=== PATIENT | female | born 1970 | race Hispanic/Latino ===

== ENCOUNTER 2019-02-24 16:37 | Emergency (ER) | payer OTHER, MEDICAID, SELFPAY ==
--- NOTE | 2019-02-24 16:45 | DI.RAD.S_ITS ---
PROCEDURE: XR THORACIC SPINE 2V INDICATIONS: pain x weeks TECHNIQUE: 2 views of the thoracic spine were acquired. COMPARISON: [facility], CR, XR CHEST 2 VIEWS, 06/12/2018, 13:02. FINDINGS: Bones: No fractures or dislocations. No suspicious bony lesions. Visualized ribs are intact. Multilevel endplate osteophytes are present. Soft tissues: No paravertebral stripe thickening. IMPRESSION: Multilevel degenerative disc disease. No acute fracture. No osseous lesion. If clinical suspicion and/or symptoms persist, further assessment with repeat plainfilms, or advanced imaging (e.g., CT, MRI, or bone scan) may be helpful for further assessment. Dictated by: Selena De Jesus M.D. on 02/24/2019 at 16:58 Approved by: Selena De Jesus M.D. on 02/24/2019 at 16:59
[2019-02-24 16:48] VITALS: BP 123/61; PULSE 122; RESP 16; TEMP 36.9; O2SAT 100; BMI 32.9
[2019-02-24] MEDS: KETOROLAC 60 MG/2 ML VIAL IM (16:53)
[2019-02-24] MEDS: CYCLOBENZAPRINE 10 MG TABLET PO (16:53)
[2019-02-24 17:08] LABS: RBC Urine None Seen (0-5/HPF)
[2019-02-24 17:30] LABS: Bacteria Urine Moderate (10-30); Culture Indicated Urine Cult Not Indicated; Squamous Epithelial Cell Urine 5-10 /HPF (0-5/HPF); WBC Urine 5-10/HPF (0-5/HPF)
[2019-02-24] MEDS: CODEINE/ACETAMINOPHEN 30/300 TABLET 1 TAB PO (18:14)
[2019-02-24] MEDS: LIDOCAINE PATCH 1 EACH ADH..PATCH TOP (18:14)
[2019-02-24 18:22] VITALS: BP 123/65; PULSE 109; O2SAT 100
[2019-02-24] MEDS: KETOROLAC 10MG PREPACK 1 BOTTLE MISC (18:46)
[2019-02-24] MEDS: CYCLOBENZAPRINE 10 MG PREPACK 1 BOTTLE MISC (18:47)
[2019-02-24] MEDS: CODEINE/APAP 30/300 PREPACK 1 BOTTLE MISC (18:47)
--- NOTE | 2019-02-24 19:43 | ED_ITS ---
HPI - Back Pain/Injury <MAURI Sanchez- - Last Filed: 02/24/19 19:49> General Chief Complaint: Back Pain/Injury Stated Complaint: back pain for couple of weeks Time Seen by Provider: 02/24/19 16:40 Source: patient Mode of arrival: Ambulatory Limitations: no limitations History of Present Illness HPI Narrative: The patient is a 48-year-old female nonsmoker with history of UTI who presents with a chief complaint of 1 month thoracic back pain. She states it started with no impetus, and it's gotten worse. She has not taken any Tylenol or Motrin because she has not had any. She denies any incontinence of bowel, incontinence of bladder saddle anesthesia. She denies any falls or trauma. She states that it's on both her worse with pressure and movement. Related Data Previous Rx's Medication Instructions Recorded ondansetron [Zofran ODT] 4 mg SUBLINGUAL Q4HP PRN #15 odt 11/01/16 sulfamethoxazole-trimethoprim 1 tab PO BID #14 tab 11/01/16 acetaminophen-codeine 1 tab PO Q4-6H PRN #7 tab 02/24/19 [Tylenol-Codeine #3] cyclobenzaprine 10 mg PO TID PRN #14 tab 02/24/19 ketorolac 10 mg PO TID PRN #15 tab 02/24/19 Allergies Allergy/AdvReac Type Severity Reaction Status Date / Time No Known Drug Allergies Allergy Verified 02/24/19 16:48 Review of Systems <NALINI Sanchez - Last Filed: 02/24/19 19:49> Review of Systems Narrative: GENERAL: Denies chills, fatigue, malaise, fever, sweats. HEENT: Denies sinus pain, ear pain, sore throat, difficulty swallowing, dizziness. RESPIRATORY: Denies dyspnea, cough, wheezing, hemoptysis, sputum. CARDIOVASCULAR: Denies chest pain, palpitations, orthopnea, edema, GASTROINTESTINAL: Denies nausea, vomiting, abdominal pain, diarrhea, constipation, melena. : Denies dysuria, frequency, incontinence, hematuria, urinary retention. MUSCULOSKELETAL: See HPI SKIN: Denies rash, skin lesions, or other NEUROLOGIC: Denies weakness, headache, numbness, change in speech, confusion, seizures, incoordination. PSYCHIATRIC: No concerning psychosocial issues. 12 point review of systems is negative except for those stated above Patient History <JAYESH Sanchez - Last Filed: 02/24/19 19:49> Social History Smoking Status: Unknown if ever smoked Smoking Status: Unknown if ever smoked alcohol intake frequency: holidays/special occasions only Substance Use Type: does not use Exam <JAYESH Sanchez - Last Filed: 02/24/19 19:49> Narrative Exam Narrative: GENERAL: Obese female in no acute distress walking in with purse in no acute distress HEAD: Atraumatic. Normocephalic. No temporal or scalp tenderness. EYES: Pupils equal round and reactive. Extraocular motions intact. No scleral icterus. No injection or drainage. ENT: Nose without bleeding, purulent drainage or septal hematoma. Throat without erythema, tonsillar hypertrophy or exudate. Uvula midline. Airway patent. NECK: Trachea midline. No JVD or lymphadenopathy. Supple, nontender, no meningeal signs. CARDIOVASCULAR: Regular rate and rhythm RESPIRATORY: Clear to auscultation. Breath sounds equal bilaterally. No wheezes, rales, or rhonchi. No cough. No increased respiratory effort. No accessory muscle use. GASTROINTESTINAL: Abdomen soft, non-tender, nondistended. No hepato- splenomegaly, or palpable masses. No guarding. EXTREMITIES: No clubbing, cyanosis, or edema. No joint tenderness, effusion, or edema noted. BACK: No palpable deformity or crepitance. No flank tenderness. No pain to CT or L-spine palpation. Pain to thoracic spine palpation that is diffuse and bilateral paraspinal muscle palpation. NEURO: AOx3. Steady gait. Using all extremities equally. SKIN: No rash or erythema. Initial Vital Signs Initial Vital Signs: Vital Signs Temperature 98.4 F 02/24/19 16:48 Pulse Rate 122 H 02/24/19 16:48 Respiratory Rate 16 02/24/19 16:48 Blood Pressure 123/61 02/24/19 16:48 Pulse Oximetry 100 02/24/19 16:48 <Harish Egan DO - Last Filed: 02/28/19 18:25> Initial Vital Signs Initial Vital Signs: Vital Signs Temperature 98.4 F 02/24/19 16:48 Pulse Rate 122 H 02/24/19 16:48 Respiratory Rate 16 02/24/19 16:48 Blood Pressure 123/61 02/24/19 16:48 Pulse Oximetry 100 02/24/19 16:48 Course <MAURI Sanchez-BC - Last Filed: 02/24/19 19:49> Orders Ordered: Discontinued Medications Acetaminophen/Codeine Phosphate (Tylenol #3) 1 tab PO NOW ONE Stop: 02/24/19 18:02 Last Admin: 02/24/19 18:14 Dose: 1 tab Documented by: JAMAR Acetaminophen/Codeine Phosphate (Tylenol #3 Prepack) 1 bottle MISC SEEINSTR ONE Stop: 02/24/19 18:39 Last Admin: 02/24/19 18:47 Dose: 1 bottle Documented by: NARA Cyclobenzaprine HCl (Flexeril) 10 mg PO NOW ONE Stop: 02/24/19 16:46 Last Admin: 02/24/19 16:53 Dose: 10 mg Documented by: JAMAR Cyclobenzaprine HCl (Flexeril 10 Mg Prepack) 1 bottle MISC SEEINSTR ONE Stop: 02/24/19 18:39 Last Admin: 02/24/19 18:47 Dose: 1 bottle Documented by: NARA Ketorolac Tromethamine (Toradol) 60 mg IM NOW ONE Stop: 02/24/19 16:46 Last Admin: 02/24/19 16:53 Dose: 60 mg Documented by: JAMAR Ketorolac Tromethamine (Toradol 10mg Prepack) 1 bottle MISC SEEINSTR ONE Stop: 02/24/19 18:39 Last Admin: 02/24/19 18:46 Dose: 1 bottle Documented by: NARA Lidocaine (Lidoderm) 1 each TOP NOW ONE Stop: 02/24/19 18:02 Last Admin: 02/24/19 18:14 Dose: 1 each Documented by: JAMAR Vital Signs Vital signs: Vital Signs - 8 hr 02/24/19 16:48 02/24/19 18:22 Temperature 98.4 F Pulse Rate 122 H 109 H Respiratory Rate 16 Blood Pressure 123/61 Blood Pressure [Left Arm] 123/65 Pulse Oximetry 100 100 <Harish Egan DO - Last Filed: 02/28/19 18:25> Orders Ordered: Discontinued Medications Acetaminophen/Codeine Phosphate (Tylenol #3) 1 tab PO NOW ONE Stop: 02/24/19 18:02 Last Admin: 02/24/19 18:14 Dose: 1 tab Documented by: JAMAR Acetaminophen/Codeine Phosphate (Tylenol #3 Prepack) 1 bottle MISC SEEINSTR ONE Stop: 02/24/19 18:39 Last Admin: 02/24/19 18:47 Dose: 1 bottle Documented by: NARA Cyclobenzaprine HCl (Flexeril) 10 mg PO NOW ONE Stop: 02/24/19 16:46 Last Admin: 02/24/19 16:53 Dose: 10 mg Documented by: JAMAR Cyclobenzaprine HCl (Flexeril 10 Mg Prepack) 1 bottle MISC SEEINSTR ONE Stop: 02/24/19 18:39 Last Admin: 02/24/19 18:47 Dose: 1 bottle Documented by: NARA Ketorolac Tromethamine (Toradol) 60 mg IM NOW ONE Stop: 02/24/19 16:46 Last Admin: 02/24/19 16:53 Dose: 60 mg Documented by: JAMAR Ketorolac Tromethamine (Toradol 10mg Prepack) 1 bottle MISC SEEINSTR ONE Stop: 02/24/19 18:39 Last Admin: 02/24/19 18:46 Dose: 1 bottle Documented by: NARA Lidocaine (Lidoderm) 1 each TOP NOW ONE Stop: 02/24/19 18:02 Last Admin: 02/24/19 18:14 Dose: 1 each Documented by: JAMAR Vital Signs Vital signs: Vital Signs - 8 hr 02/24/19 16:48 02/24/19 18:22 Temperature 98.4 F Pulse Rate 122 H 109 H Respiratory Rate 16 Blood Pressure 123/61 Blood Pressure [Left Arm] 123/65 Pulse Oximetry 100 100 MDM - Back Pain/Injury <JAYESH Sanchez - Last Filed: 02/24/19 19:49> Lab Data Labs: Lab Results 02/24/19 Range/Units 16:50 Urine RBC None seen (0-5/HPF) Urine WBC 5-10/hpf H (0-5/HPF) Ur Squamous Epith Cells 5-10 /hpf H (0-5/HPF) Urine Bacteria Moderate (10-30) H (None) Ur Culture Indicated? Cult not indicated Point of Care Testing Test Results Negative Urine Dip Bedside Urine Glucose Negative Bedside Urine Bilirubin + 1 Bedside Urine Ketone +/- 5 Urine Specific [place] 1.025 Bedside Urine Occult Blood - Negative Bedside Urine pH 6.0 Bedside Urine Protein + 30 Bedside Urine Urobilinogen +/- 1mg Bedside Urine Nitrite - Negative Bedside Urine Leukocytes + 70 Esterase Imaging Data Thoracic spine x-ray: Radiologist's Impression: [address] [address] XRay Report Signed Patient: Hellen CasillassMR#: [id number] : 1970Acct:[id number] Age/Sex: 48 / FDate of Service: 02/24/19 Loc: ED Accession Number: [id number] Procedure: XR thoracic spine 2V Ordering Provider: Estelle Wong PROCEDURE: XR THORACIC SPINE 2V INDICATIONS: pain x weeks TECHNIQUE: 2 views of the thoracic spine were acquired. COMPARISON: [facility], , XR CHEST 2 VIEWS, 06/12/2018, 13:02. FINDINGS: Bones: No fractures or dislocations. No suspicious bony lesions. Visualized ribs are intact. Multilevel endplate osteophytes are present. Soft tissues: No paravertebral stripe thickening. IMPRESSION: Multilevel degenerative disc disease. No acute fracture. No osseous lesion. If clinical suspicion and/or symptoms persist, further assessment with repeat plainfilms, or advanced imaging (e.g., CT, MRI, or bone scan) may be helpful for further assessment. Dictated by: Selena De Jesus M.D. on 02/24/2019 at 16:58 Approved by: Selena De Jesus M.D. on 02/24/2019 at 16:59 [facility] Narrative Medical decision making narrative: The patient is a 48-year-old female who presents with a chief complaint of back pain ongoing for the past month. She has no red flag symptoms of incontinence bowel, incontinence of bladder saddle anesthesia. I discussed at length that she needs to follow up with these occur. She was given Toradol, Flexeril and Tylenol 3 the emergency department. I discussed at length that she is to follow up with primary care provider, come back for any acute concerns. She felt improvement with these medications in the ER. I discussed that Tylenol 3 can be constipating and sedating, Flexeril can be sedating, Toradol cannot be combined with any other NSAIDs. Patient has no questions or concerns upon discharge and states understanding of return precautions as well as follow-up care. <Harish Egan DO - Last Filed: 02/28/19 18:25> Lab Data Labs: Lab Results 02/24/19 Range/Units 16:50 Urine RBC None seen (0-5/HPF) Urine WBC 5-10/hpf H (0-5/HPF) Ur Squamous Epith Cells 5-10 /hpf H (0-5/HPF) Urine Bacteria Moderate (10-30) H (None) Ur Culture Indicated? Cult not indicated Point of Care Testing Test Results Negative Urine Dip Bedside Urine Glucose Negative Bedside Urine Bilirubin + 1 Bedside Urine Ketone +/- 5 Urine Specific [place] 1.025 Bedside Urine Occult Blood - Negative Bedside Urine pH 6.0 Bedside Urine Protein + 30 Bedside Urine Urobilinogen +/- 1mg Bedside Urine Nitrite - Negative Bedside Urine Leukocytes + 70 Esterase Discharge Plan Departure Patient Disposition: Home Clinical Impression: Thoracic back pain Qualifiers: Chronicity: acute Back pain laterality: bilateral Qualified Code(s): M54.6 - Pain in thoracic spine Discharge Date/Time: 02/24/19 18:49 Instructions: DI for Back Spasm, DI for Back Strain or Sprain, DI for Thoracic Back Pain Activity Restrictions/Additional Instructions: As I discussed, your x-ray shows no acute fracture. This does not rule out a soft tissue injury. Please follow-up with primary care provider in the next few days. He may need further imaging and or physical therapy etcetera Please come back to the emergency department for any acute concerns such as incontinence of bowel, incontinence of bladder numbness in her groin I sent 3 prescriptions to [facility] in [place] Please be aware that Flexeril can be sedating. Do not combine it with any sedating agents. I have given you a prescription of Toradol. This is an NSAID. Do not combine it with other NSAIDs such as Aleve or ibuprofen. I suggest taking it with some food, as it can irritate your stomach. I have given you a prescription of a narcotic for pain. Be aware that this can be constipating and sedating. I encouraged taking with a stool softener, pushing fluids and fiber. Do not take and drive, operate heavy machinery, etc. Do not combine it with any other sedating substances such as alcohol. The combination of narcotics and alcohol and/or other sedatives can be lethal. Please be aware that we do not provide refills of controlled substances in the emergency department. Please follow up with her primary care provider. Prescriptions: New cyclobenzaprine 10 mg tablet 10 mg PO TID PRN (Reason: muscle spasm) Qty: 14 RF: 0 acetaminophen-codeine [Tylenol-Codeine #3] 300-30 mg tablet 1 tab PO Q4-6H PRN (Reason: pain) Qty: 7 RF: 0 ketorolac 10 mg tablet 10 mg PO TID PRN (Reason: pain) Qty: 15 RF: 0 No Action sulfamethoxazole-trimethoprim 800 MG/160 MG tablet 1 tab PO BID Qty: 14 RF: 0 ondansetron [Zofran ODT] 4 MG tablet,disintegrating 4 mg Sublingual Q4HP PRNQty: 15 RF: 0 <Harish Egan, DO - Last Filed: 02/28/19 18:25> Sign Out Provider Sign Out Attestation: Dr Egan Co-Sign Statement: I was available for consultation during this patient's emergency department visit. This chart is si gned by myself for administrative purposes only. I did not have direct contact with this patient during this visit. They were seen independently by the APC.
== END 2019-02-24 18:49 | disposition home or self-care (01) ==
PROVIDERS: Emergency Provider Nurse Practitioner Family
DX: M54.6 Pain in thoracic spine (principal)
CPT/HCPCS: 72070; 81003; 81015; 81025; 96372; 99282; 99283; J1885

== ENCOUNTER 2019-11-20 16:58 | Inpatient (IN) | payer OTHER, MEDICAID, SELFPAY ==
[2019-11-20] VITALS (9 sets, daily range): BP systolic 103–147; BP diastolic 55–73; PULSE 103–120; RESP 16–31; TEMP 36.2–36.9; O2SAT 96–99; BMI 32.9; BMI 43.9
--- NOTE | 2019-11-20 18:15 | ED_ITS ---
HPI - Abdominal Pain General Chief Complaint: Abdominal Pain Stated Complaint: hernia pain Time Seen by Provider: 11/20/19 18:05 Source: patient Mode of arrival: Ambulatory Limitations: no limitations History of Present Illness HPI narrative: 48-year-old female nonsmoker with a history of bradycardia requiring a pacemaker 3 years ago presents with about 2 weeks of gradually worsening abdominal pain. It started around her belly button where she thinks she has a known umbilical hernia and has worsened to be much of her abdomen now. She has been nauseated but not vomiting and last oral intake was about breakfas t this morning. She denies any fever chills. Her pain is significantly worse with any motion and improves with rest. She has been constipated and reports decreased bowel movements over the past few days as well. She denies any exposure to persons known to have coronavirus MD complaint: abdominal pain Onset (ago): week(s) Pain Consistency: constant Location: periumbilical Severity: severe Quality: cramping and aching Relieving factors: rest Exacerbating factors: movement Related Data Home Medications Medication Instructions Recorded Confirmed gabapentin 300 mg PO DAILY 11/20/19 11/20/19 lisinopril PO DAILY 11/20/19 metoprolol tartrate TID 11/20/19 Previous Rx's Medication Instructions Recorded ondansetron [Zofran ODT] 4 mg SUBLINGUAL Q4HP PRN #15 odt 11/01/16 acetaminophen-codeine 1 tab PO Q4-6H PRN #7 tab 02/24/19 [Tylenol-Codeine #3] cyclobenzaprine 10 mg PO TID PRN #14 tab 02/24/19 ketorolac 10 mg PO TID PRN #15 tab 02/24/19 Allergies Allergy/AdvReac Type Severity Reaction Status Date / Time No Known Drug Allergies Allergy Verified 11/20/19 21:04 Review of Systems Constitutional Constitutional: Denies chills, Denies fatigue, Denies fever(s), Denies frequent falls, Denies lethargy and Denies weakness Eyes Eyes: Denies change in vision, Denies eye discharge, Denies irritation and Denies loss of vision ENT Ears, Nose, Mouth, and Throat: Denies change in voice, Denies dizziness, Denies neck pain, Denies sore throat and Denies throat swelling Cardiovascular Cardiovascular: Denies chest pain, Denies irregular heart rhythm, Denies lightheadedness, Denies palpitations, Denies dyspnea, Denies dyspnea on exertion and Denies orthopnea Respiratory Respiratory: Denies cough, Denies dyspnea, Denies dyspnea on exertion and Denies wheezing Gastrointestinal Gastrointestinal: Reports abdominal pain, Reports change in bowel habits, Denies diarrhea, Reports nausea and Denies vomiting Musculoskeletal Musculoskeletal: Denies neck pain and Denies numbness Integumentary/Breasts Skin/Breast: Denies pruritus, Denies erythema, Denies rash and Denies wounds Neurologic Neurologic: Denies behavioral changes, Denies confusion, Denies dizziness, Denies frequent falls, Denies loss of vision, Denies numbness and Denies weakness Psychiatric Psychiatric: Denies anxiety, Denies behavioral changes, Denies confusion, Denies depression, Denies homicidal ideation and Denies suicidal ideation Endocrine Endocrine: Denies fatigue, Denies flushing and Denies palpitations Hematologic/Lymphatic Hematologic/Lymphatic: Denies easy bruising Allergic/Immunologic Allergic/Immunologic: Denies urticaria, Denies throat swelling and Denies wheezing Patient History Medical History Hypertension (Acute) Seasonal allergies (Acute) Surgical History History of laparoscopic cholecystectomy (Acute) Social History household members: significant other and children Smoking Status: Never smoker alcohol intake: former Smoking Status: Never smoker alcohol intake frequency: holidays/special occasions only Substance Use Type: does not use Exam Narrative Exam Narrative: GENERAL: [48] year old patient appears stated age. Obese, obviously uncomfortable HEAD: Atraumatic. Normocephalic. EYES: Pupils equal round and reactive. Extraocular motions intact. No scleral icterus. No injection or drainage. ENT: Nose without bleeding, purulent drainage. Throat without erythema, tonsillar hypertrophy or exudate. Airway patent. NECK: Trachea midline. Non tender CARDIOVASCULAR: Regular rate and rhythm without murmurs, gallops, or rubs. RESPIRATORY: Clear to auscultation. Breath sounds equal bilaterally. No wheezes, rales, or rhonchi. GASTROINTESTINAL: Abdomen soft, very tender umbilical hernia, unable to reduce. Decreased bowel sounds. No erythema EXTREMITIES: No edema or joint tenderness. BACK: Nontender without deformity or crepitance. No flank tenderness. NEURO: AOx3. SKIN: No rash or erythema of visible areas Initial Vital Signs Initial Vital Signs: Vital Signs Temperature 97.2 F L 11/20/19 17:19 Pulse Rate 120 H 11/20/19 17:19 Respiratory Rate 22 11/20/19 17:19 Blood Pressure 147/68 H 11/20/19 17:19 Pulse Oximetry 99 11/20/19 17:19 Course Orders Ordered: ED Orders 11/20/19 18:32 EKG-12 Lead Stat 11/20/19 18:46 CT abdomen pelvis w con Stat 11/20/19 18:47 Complete Blood Count AUTO DIFF Stat Comprehensive Metabolic Panel Stat Lipase Stat 11/20/19 20:21 COVID19 -ED/INPAT/OR/L&D Stat Fentanyl (Sublimaze) 0 mcg IV Q5M PRN PRN Reason: Pain, Moderate (4-6) Hydromorphone HCl (Dilaudid) 0 mg IV Q5M PRN PRN Reason: Pain, Severe (7-10) Sodium Chloride (Normal Saline 0.9%) 1,000 mls @ 150 mls/hr IV CONT TOMMIE Lactated Ringer's (Lactated Ringers) 1,000 mls @ 42 mls/hr IV NOW ONE Stop: 11/21/19 21:02 Last Admin: 11/20/19 21:05 Dose: 42 mls/hr Documented by: SELINA Lactated Ringer's (Lactated Ringers) 1,000 mls @ 42 mls/hr IV CONT TOMMIE Ondansetron HCl (Zofran) 4 mg IV NOW PRN PRN Reason: Nausea And Vomiting Oxycodone/Acetaminophen (Percocet 5/325) 1 tab PO PACUNOW PRN PRN Reason: Mild or Moderate Pain Discontinued Medications Hydromorphone HCl (Dilaudid) 0.5 mg IV NOW ONE Stop: 11/20/19 18:46 Last Admin: 11/20/19 19:13 Dose: 0.5 mg Documented by: JOHNATHANOTEM Sodium Chloride (Normal Saline 0.9%) 1,000 mls @ 1,000 mls/hr IV BOLUS ONE Stop: 11/20/19 19:36 Last Infusion: 11/20/19 20:43 Dose: 0 mls/hr Documented by: Admin: 11/20/19 19:12 Dose: 1,000 mls/hr Documented by: JAMAR Piperacillin/Tazobactam/Dextrose (Zosyn) 3.375 gm in 50 mls @ 100 mls/hr IV INTRA-OP ONE Stop: 11/20/19 20:57 Last Infusion: 11/20/19 21:38 Dose: 0 mls/hr Documented by: Admin: 11/20/19 21:28 Dose: 100 mls/hr Documented by: SHELLIE Ondansetron HCl (Zofran) 4 mg IV NOW ONE Stop: 11/20/19 18:46 Last Admin: 11/20/19 19:13 Dose: 4 mg Documented by: JAMAR Consultations Consultation #1: general surgery contacted after initial exam. Will plan to take to OR pending CT Vital Signs Vital signs: Vital Signs - 8 hr 11/20/19 17:19 11/20/19 17:43 11/20/19 17:44 Temperature 97.2 F L Pulse Rate 120 H 114 H Respiratory Rate 22 Blood Pressure 147/68 H 142/58 H Pulse Oximetry 99 97 98 11/20/19 18:00 11/20/19 18:30 11/20/19 19:00 Temperature Pulse Rate 108 H 110 H 109 H Respiratory Rate 21 Blood Pressure 121/64 103/67 Pulse Oximetry 98 98 97 11/20/19 19:30 11/20/19 20:00 Temperature Pulse Rate 104 H 105 H Respiratory Rate 31 H 23 Blood Pressure 109/73 Pulse Oximetry 96 96 MDM - Abdominal Pain Lab Data Result diagrams: 11/20/19 18:47 11/20/19 18:47 Labs: Lab Results 11/20/19 11/20/19 11/20/19 Range/Units 18:47 18:47 20:21 WBC 7.2 (4.5-11.0) X10^3/uL RBC 4.34 (4.0-5.2) X10^6/uL Hgb 12.2 (12.0-16.0) g/dL Hct 36.5 (36-46) % MCV 84.1 (80-100) fL MCH 28.1 (26-34) PG MCHC 33.4 (30-36) % RDW 14.4 (11.6-14.8) % Plt Count 271 (150-400) X10^3/uL Neut % (Auto) 60.6 (50-75) % Lymph % (Auto) 29.1 (25-40) % [place] % (Auto) 6.8 (3-14) % Eos % (Auto) 2.8 (2-4) % Baso % (Auto) 0.7 (0-2) % Neut # (Auto) 4400 (0981-3677) /uL Lymph # (Auto) 2100 (4898-5628) /uL [place] # (Auto) 500 (0-900) /uL Eos # (Auto) 200 (0-450) /uL Baso # (Auto) 0 (0-100) /uL Sodium 136 L (137-145) mmol/L Potassium 4.3 (3.4-5.1) mmol/L Chloride 102 (98-107) mmol/L Carbon Dioxide 28 (22-32) mmol/L BUN 22 H (7-17) mg/dL Creatinine 0.60 (0.52-1.04) mg/dL Estimated GFR > 60.0 (>60) mL/min BUN/Creatinine Ratio 36.7 H (6-22) Glucose 112 H (70-100) mg/dL Calcium 9.1 (8.4-10.2) mg/dL Total Bilirubin 0.3 (0.2-1.3) mg/dL AST 33 (14-36) IU/L ALT 19 (<35) IU/L Alkaline Phosphatase 113 (38-126) U/L Total Protein 7.2 (6.3-8.2) g/dL Albumin 3.8 (3.5-5.0) g/dL Globulin 3.4 (1.7-4.1) g/dL Albumin/Globulin Ratio 1.1 (1.0-2.8) Lipase 35 (23-300) U/L COVID-19 PCR Negative (Negative) Discharge Plan Departure Patient Disposition: Admitted as Observation Clinical Impression: Incarcerated umbilical hernia Discharge Date/Time: 11/20/19 20:48 Referrals: Geetha Martinez MD [Primary Care Provider] - Admit Date/Time: 11/20/19 20:21 Admit Provider: Tereso Moore
--- NOTE | 2019-11-20 18:46 | DI.CT.S_ITS ---
PROCEDURE: CT ABDOMEN PELVIS W CON INDICATIONS: severe abdominal pain, umbilical hernia, nausea, no appetiti TECHNIQUE: After the administration of intravenous contrast, 5 mm thick sections acquired from the diaphragm to the symphysis. 5 mm coronal and sagittal reformats were acquired. For radiation dose reduction, the following was used: automated exposure control, adjustment of mA and/or kV according to patient size. COMPARISON: [facility], CT, CT ABDOMEN PELVIS WITH CONTRAST, 08/19/2017, 20:57. FINDINGS: Image quality: Excellent. ABDOMEN: Lung bases: Lung bases are clear. Heart size is normal. Cardiac pacer leads noted. Solid organs: Liver is normal in size and enhancement. Gallbladder is surgically absent. Biliary system is non dilated. Pancreas enhances normally. Spleen is normal in size and enhancement. No adrenal nodules. Kidneys demonstrate normal size and enhancement, without hydronephrosis. Peritoneum and bowel: Small bowel demonstrate normal wall thickness and caliber. Scattered colonic diverticuli without evidence of diverticulosis. No free fluid or air. Appendix is normal. Nodes and vessels: No retroperitoneal or mesenteric adenopathy by size criteria. Aorta and inferior vena cava are normal in size. Miscellaneous: Large periumbilical ventral midline hernia is noted which contains loop of transverse colon. Mild inflammatory changes are noted adjacent to the herniated loop of transverse colon and there is focal, mild wall thickening at the point of herniation concerning for early bowel strangulation. Colon is mildly distended with large amount of stool proximal to the herniated loop of transverse colon and is mostly decompressed distal to the herniated loop of transverse colon concerning for at low-grade versus early obstruction. PELVIS: Genitourinary: Bladder wall thickness is normal. Miscellaneous: No inguinal hernias or adenopathy. Bones: No suspicious bony lesions. No vertebral body compression fractures. Spine degenerative disc disease and facet arthropathy. IMPRESSION: 1. Large periumbilical hernia which contains a loop of transverse colon. There are mild inflammatory changes and focal mild circumferential wall thickening involving the herniated loop of transverse colon concerning for early strangulation/ischemia. Colon proximal to the herniated loop of transverse colon is distended with large amount of stool with colon distal to the herniated transverse colon predominantly decompressed suspicious for early or low-grade colonic obstruction. 2. Colonic diverticulosis without evidence of diverticulitis. Findings discussed with on November 20, 2019 at 8:33 p.m. Dictated by: Clau Driscoll MD, PhD on 11/20/2019 at 20:25 Approved by: Clau Driscoll MD, PhD on 11/20/2019 at 20:33
[2019-11-20 19:02] LABS: Add Manual Diff / Slide Review NO; Basophils Absolute Auto 0 /uL (0-100); Basophils Percent Auto 0.7 % (0-2); Eosinophils Absolute Auto 200 /uL (0-450); Eosinophils Percent Auto 2.8 % (2-4); Hematocrit 36.5 % (36-46); Hemoglobin 12.2 g/dL (12.0-16.0); Lymphocytes Absolute Auto 2100 /uL (1100-4500); Lymphocytes Percent Auto 29.1 % (25-40); Mean Corpuscular HGB Conc 33.4 % (30-36); Mean Corpuscular Hemoglobin 28.1 PG (26-34); Mean Corpuscular Volume 84.1 fL (80-100); Monocytes Absolute Auto 500 /uL (0-900); Monocytes Percent Auto 6.8 % (3-14); Neutrophils Absolute Auto 4400 /uL (1500-7000); Neutrophils Percent Auto 60.6 % (50-75); Platelet Count 271 X10^3/uL (150-400); Red Blood Cell Count 4.34 X10^6/uL (4.0-5.2); Red Cell Distribution Width 14.4 % (11.6-14.8); White Blood Cell Count 7.2 X10^3/uL (4.5-11.0)
[2019-11-20] MEDS: SODIUM CHLORIDE 0.9% 1,000 ML 1000 ML IV (19:12)
[2019-11-20 19:13] LABS: Alanine Aminotransferase 19 IU/L (<35); Albumin 3.8 g/dL (3.5-5.0); Albumin Globulin Ratio 1.1 (1.0-2.8); Alkaline Phosphatase 113 U/L (38-126); Aspartate Aminotransferase 33 IU/L (14-36); BUN Creatinine Ratio 36.7 (6-22); Bilirubin Total 0.3 mg/dL (0.2-1.3); Blood Urea Nitrogen 22 mg/dL (7-17); Calcium 9.1 mg/dL (8.4-10.2); Carbon Dioxide 28 mmol/L (22-32); Chloride 102 mmol/L (98-107); Estimated Glomerular Filt Rate > 60.0 mL/min (>60); Globulin 3.4 g/dL (1.7-4.1); Glucose 112 mg/dL (70-100); HEMOLYSIS 40 (0-50); Lipase 35 U/L (23-300); Potassium 4.3 mmol/L (3.4-5.1); Sodium 136 mmol/L (137-145); Total Protein 7.2 g/dL (6.3-8.2)
[2019-11-20] MEDS: ONDANSETRON 4 MG/2 ML INJ IV (19:13)
[2019-11-20] MEDS: HYDROMORPHONE 0.5 MG INJ IV (19:13)
--- NOTE | 2019-11-20 20:29 | PM.HP.1 ---
History of Present Illness History of Present Illness Date Patient Seen: 11/20/19 Time Patient Seen: 20:30 Date of Onset of Symptoms: 11/16/19 Chief complaint: hernia pain Narrative: The patient is a woman who has had 4 days of mid abdominal pain. Swelling occurred there. It is progressively gotten worse. She has had 4 days of black bowel movements as well. She has never had pain like this before. She has developed crampy abdominal pain throughout her abdomen extending into her back and that is what prompted her to come to the emergency room. She has had a prior laparoscopic cholecystectomy with an incision her belly button. She denies any fever. Patient History Medical History (Updated 11/20/19 @ 20:50 by Tereso Moore MD) Hypertension (Acute) Surgical History (Updated 11/20/19 @ 20:35 by Tereso Moore MD) History of laparoscopic cholecystectomy (Acute) Family & Social History Safety & Behavioral: Feels Safe in Current Yes Environment Tobacco & Substance use: Smoking Status Never smoker alcohol intake frequency holiday/special occasion Substance Use Type does not use Meds Home Medications and Allergies Home Medications Medication Instructions Recorded Confirmed Type ondansetron [Zofran ODT] 4 mg SUBLINGUAL Q4HP PRN #15 odt 11/01/16 Rx sulfamethoxazole-trimethoprim 1 tab PO BID #14 tab 11/01/16 Rx acetaminophen-codeine 1 tab PO Q4-6H PRN #7 tab 02/24/19 Rx [Tylenol-Codeine #3] cyclobenzaprine 10 mg PO TID PRN #14 tab 02/24/19 Rx ketorolac 10 mg PO TID PRN #15 tab 02/24/19 Rx Allergies Allergy/AdvReac Type Severity Reaction Status Date / Time No Known Drug Allergies Allergy Verified 11/20/19 17:19 Review of Systems Review of Systems Narrative: Patient denies double vision she does were glasses. No earaches or sore throat. She has had teeth extracted. No cough or cold. No asthma. Had a pacemaker placed 3 years ago. Her cardiopulmonary technician is in [place]. She says she had it placed because her heart would become very slow and she had congestive heart failure. Patient has had no hematemesis. Decreased appetite. Patient has no blood in her urine or kidney stones. No seizures or blackouts. No psychosis or major depression. No unusual bruising or bleeding. No fractures. Does have some joint issues in her knees and hips. Exam Vital Signs (past 8 hours): - 11/20/19 17:19 11/20/19 17:43 11/20/19 17:44 Temperature 97.2 F L Pulse Rate 120 H 114 H Respiratory Rate 22 Blood Pressure 147/68 H 142/58 H Pulse Oximetry 99 97 98 11/20/19 18:00 11/20/19 18:30 11/20/19 19:00 Temperature Pulse Rate 108 H 110 H 109 H Respiratory Rate 21 Blood Pressure 121/64 103/67 Pulse Oximetry 98 98 97 11/20/19 19:30 11/20/19 20:00 Temperature Pulse Rate 104 H 105 H Respiratory Rate 31 H 23 Blood Pressure 109/73 Pulse Oximetry 96 96 Narrative Exam Narrative: Cooperative patient. Laying rather still. Describes severe pain but seems comfortable at this time. Vital signs noted.. Her eyes are nonicteric. Pupils equal round reactive to light. Conjunctivae are pink. Ears without lesion. Oral mucosa is dry no open lesions. Neck is supple no nodes in the neck or supraclavicular areas no masses in the thyroid no tenderness lungs are clear to auscultation without rales or rhonchi in equal percussion. Heart regular rate and rhythm a little bit fast but not markedly so no murmurs or gallops appreciated. Her abdomen is morbidly protuberant soft except in the area of her umbilicus where there is an obvious hernia I did not attempt to reduction given the history from the ER doctor that he could not reduce it and it was quite tender. Mild pressure on it seem to induce pain. Patient is alert and oriented x3. Speech rate and content are appropriate affect is appropriate, skin 2+ turgor. No obvious open lesions. Skin over the umbilicus is quite attenuated. No redness of the skin over the umbilicus. No rashes appreciated. Objective Imaging CT scan - abdomen: My impression: Hernia near the umbilicus. Rather large sac with a narrow opening. Contains intestine. No gas in the wall of the intestine. Labs Result Diagrams: 11/20/19 18:47 11/20/19 18:47 Labs: Laboratory Results - last 24 hr 11/20/19 11/20/19 18:47 18:47 WBC 7.2 RBC 4.34 Hgb 12.2 Hct 36.5 MCV 84.1 MCH 28.1 MCHC 33.4 RDW 14.4 Plt Count 271 Neut % (Auto) 60.6 Lymph % (Auto) 29.1 [place] % (Auto) 6.8 Eos % (Auto) 2.8 Baso % (Auto) 0.7 Neut # (Auto) 4400 Lymph # (Auto) 2100 [place] # (Auto) 500 Eos # (Auto) 200 Baso # (Auto) 0 Sodium 136 L Potassium 4.3 Chloride 102 Carbon Dioxide 28 BUN 22 H Creatinine 0.60 Estimated GFR > 60.0 BUN/Creatinine Ratio 36.7 H Glucose 112 H Calcium 9.1 Total Bilirubin 0.3 AST 33 ALT 19 Alkaline Phosphatase 113 Total Protein 7.2 Albumin 3.8 Globulin 3.4 Albumin/Globulin Ratio 1.1 Lipase 35 Assessment & Plan Assessment and plan (1) Incarcerated umbilical hernia: Problem details: Patient with an incarcerated possibly strangulated umbilical hernia. Her white count is normal which is a good sign but the tenderness and prolonged nature of incarceration or worrisome. Will proceed to the operating room emergently. I do not believe that we can wait any prolonged. As it will continue to risk which is probably already probably ischemic and possibly to progress further and worsen. I have discussed repair this hernia emergently with the patient. Risks of bleeding, infection, possible need to resect did tissue or bowel, possible bile leakage, cardiac issues and recurrence of her hernia especially due to her large size were all discussed with her. She appears to understand and is anxious to proceed. All of her questions were answered. Status: Acute (2) Pacemaker: Problem details: Will try to avoid interference with it. Status: Acute (3) History of congestive heart failure: Problem details: CT scan of the visible chest does not appear to be consistent with active failure at this time. Her heart is not markedly enlarged. There does not appear to be any effusions or dilatation of her vasculature within the chest. Status: Acute
[2019-11-20 20:40] LABS: COVID19 -Nasal RAPID Negative (Negative)
--- NOTE | 2019-11-20 20:50 | PM.PREOP ---
Pre-operative Note COVID-19 COVID-19 status: Negative Result date/Date tested (Pos, Neg/Pending): 11/20/19 Interval Note History & Physical reviewed/Exam performed by Physician: Yes Changes to H&P: No
[2019-11-20] MEDS: LACTATED RINGERS 1,000 ML 42 ML IV (21:05)
--- NOTE | 2019-11-20 21:15 | SUR.HOLD ---
Fiance with patient, intermittent pain 8/10 alternating with quiet restful periods.
[2019-11-20] MEDS: PIPERACILLIN-TAZO 3.375 GM/50 ML FROZ.PIGGY IV (21:28)
--- NOTE | 2019-11-20 21:56 | SUR.OPER ---
Supine on padded OR bed, head on pillow, arms secured on padded arm boards at <90 degrees abduction, legs uncrossed, safety belt at thigh, tape over blanket over lower legs.
[2019-11-21] VITALS (18 sets, daily range): BP systolic 99–146; BP diastolic 48–87; PULSE 78–115; RESP 9–22; TEMP 36.4–37.1; O2SAT 93–100; BMI 43.9
[2019-11-21] MEDS: HYDROMORPHONE 2 MG INJ IV (00:32)
--- NOTE | 2019-11-21 00:35 | SUR.PHASEI ---
pt medicated for pain 09/06. Awake, responsive, difficult to understand (was pre-op r/t Nepali as primary language). Dr. Galeano here, spoke with her.
--- NOTE | 2019-11-21 00:40 | PM.OP.1 ---
Operative Date/Time/Diagnoses Date of procedure: 11/21/19 Time of procedure: 00:16 Pre-op diagnosis: Incarcerated incisional ventral hernia Post-op diagnosis: same Procedure & Clinicians Procedure: Repair with overlay of mesh Same procedure as scheduled: Yes Indications: Patient with a tender incarcerated hernia that could have contained strangulated material. CT suggested intestine and that was within it. She was taken emergently to the operating room. Surgeon: Tereso Moore Click Yes if Unassisted: Yes Anesthesia Type: General Operative Notes Findings: Small bowel and omentum within the hernia. All appeared to be viable. Closure Type: primary Specimen(s): none sent Prosthetic devices, grafts, tissues, transplants, or devices: 6 x 6 in piece of lightweight mesh Estimated Blood Loss (mL): 150 Procedure in detail: The patient was placed supine on the operating room table and underwent general endotracheal anesthesia. She was prepped and draped in the usual fashion. Vertical incision was made overlying the large hernia sac in her mid abdomen. This carried down into the subcu and hernia sac identified. The sac was from surrounding tissues down to the level of fascia. I made an incision on both sides of the umbilicus intending cut the umbilicus out to the attenuated skin over it. Once the fascial edge was identified a small incision was made in the midline inferior in the tissues immediately adjacent to the sac releasing tension on the hernia sac and contents. I then opened the sac and removed it from the underlying tissue. The only adhesions were right at the fascial edge. The hernia contained principally omentum and some small bowel. I released all the adhesions and reduced the contents back into the peritoneal cavity. I cleaned the edge of the fascia which from excess tissue and dissected the peritoneum back for should short area circumferentially. I had thought about placing mesh under this defect once I closed it but decided to abandon that idea. The peritoneum was closed with interrupted 3 0 Vicryl. The fascial edge were reapproximated with interrupted 1. [id number] Ethibond sutures. I dissected the fat off the underlying anterior layer fascia and placed a 6 since by 6 in piece of mesh in the space going at least 2 in beyond each side of this hernia repair. Was tacked at its edges and in the center with interrupted 0 Ethibond sutures grasping only the anterior fascial layer. Once this was accomplished the subcu was irrigated and a drain was placed bring it out right lateral and inferior to the large cavity I had created. It was secured with a 3 0 nylon. The subcu was closed in 3 layers with 2 0 Vicryl and 3 0 Vicryl interrupted sutures. The skin was closed with porfirio. Dressings were applied and the patient was awakened extubated taken the recovery room good condition. Complications: none Post-operative Condition: stable Disposition: PACU Plan for aftercare: To observation
[2019-11-21] MEDS: ONDANSETRON 4 MG/2 ML INJ IV (00:57)
--- NOTE | 2019-11-21 01:30 | SUR.PHASEI ---
1312 Stable for transfer on 2Lnp. Abd dressing remains CDI, fani Compressed. Was medicated for nausea after taking ice chips; nausea resolved and remained so during transfer. bag with clothing and purse to the room with her, patient removed her cell phone from the bag. SCDs on upon arrival, o2 at 2LNP. VSS. Patient stable, smiling, expressed appreciation for care. No further questions from staff or patient.
[2019-11-21] MEDS: LACTATED RINGERS 1,000 ML 125 ML IV ×2 (01:40→08:58)
[2019-11-21] MEDS: CEFAZOLIN VIAL 3 GM in SODIUM CHLORIDE 0.9% 100 ML 200 ML IV (02:40)
[2019-11-21] MEDS: KETOROLAC 15 MG/ML VIAL IV ×2 (04:54→11:42)
[2019-11-21 05:17] LABS: Add Manual Diff / Slide Review NO; Basophils Absolute Auto 0 /uL (0-100); Basophils Percent Auto 0.2 % (0-2); Eosinophils Absolute Auto 0 /uL (0-450); Hematocrit 37.2 % (36-46); Hemoglobin 12.2 g/dL (12.0-16.0); Lymphocytes Absolute Auto 700 /uL (1100-4500); Lymphocytes Percent Auto 5.9 % (25-40); Mean Corpuscular HGB Conc 32.8 % (30-36); Mean Corpuscular Hemoglobin 27.8 PG (26-34); Mean Corpuscular Volume 84.7 fL (80-100); Monocytes Absolute Auto 100 /uL (0-900); Monocytes Percent Auto 0.9 % (3-14); Neutrophils Absolute Auto 10800 /uL (1500-7000); Platelet Count 229 X10^3/uL (150-400); Red Blood Cell Count 4.39 X10^6/uL (4.0-5.2); Red Cell Distribution Width 14.4 % (11.6-14.8); White Blood Cell Count 11.6 X10^3/uL (4.5-11.0)
--- NOTE | 2019-11-21 07:24 | PC.NURSE ---
Admit Note-Patient brought to Room 225 from PACU at 0130, drowsy but oriented x4, denied pain at that time except during turning. Abdominal drsg CDI, AYLIN drain patent, compressed with small sang drainage. LR @ 125ml/hr started, IV abx given. HRR 90s, VSS, on 2L NC to keep sats >92%.
[2019-11-21] MEDS: OXYCODONE/ACETAMINOPHEN 5/325 TABLET 2 TAB PO ×2 (07:54→11:47)
[2019-11-21] MEDS: lisinopriL 10 MG TABLET PO (07:55)
[2019-11-21] MEDS: GABAPENTIN 300 MG CAPSULE PO (07:55)
[2019-11-21] MEDS: METOPROLOL IR 25 MG TABLET PO (07:56)
[2019-11-21] MEDS: ENOXAPARIN 40 MG/0.4 ML SYRINGE SUBCUT ×2 (07:58→21:35)
[2019-11-21] MEDS: SENNOSIDES 8.6 MG TABLET 17.2 MG PO (07:58)
[2019-11-21] MEDS: HYDROMORPHONE 1 MG INJ IV ×3 (09:19→17:56)
--- NOTE | 2019-11-21 11:42 | CM.IDA ---
Initial DCP Assessment Note Patient is a 48 yo female, resident of [place]. Patient had surgery for Incarcerated incisional ventral hernia early this AM w/Dr Moore. PCP: Geetha Martinez Payer: FAISAL CHRIS/ARIES Reviewed chart. Met w/patient, demetrio (name?) sleeping on the window bench. Patient in very good spirits this morning, states her fiance, who just moved up from [place], was very helpful last night. 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 She will easily be able to get time off for recovery. Patient confident about going home w/her family, states at this time no needs from this PROJECT DIRECTOR but will contact if a question or concern arises. Contact information left for DCP team. Following closely in case any DC needs arise. Likely return home w/family and no needs from DCP team CARLTON Tejeda Discharge Planning/Care Management CM Discharge Assessment Start: 11/21/19 11:38 Freq: Status: Active Protocol: Document 11/21/19 11:38 BESSY (Rec: 11/21/19 11:42 BESSY [id number]) Discharge Planning Assessment Assigned Floor Helper CARLTON Macedo DPOA/Assigned Designee Name yasmeen Hernandez Contact Information [phone] Advance Directives? No Advance Directives on File No History Provided By Patient Prior Living Arrangements Apartment/Condo Household Members significant other,children Type of transporation used prior to Drives own vehicle admit Independent with ADL's Yes Is patient alert and oriented? Yes Barriers to Discharge No Transportation Arrangement Friends, family Referrals Initiated None needed Additional Comment At this time
--- NOTE | 2019-11-21 15:53 | PC.NURSE ---
Pt has difficulty with ambulation this shift. Pain was not well controlled with Percocet and Toradol. Added IV Dilaudid with better results. Patient able to get up and ambulate in room. Discussed with Dr Moore and we will hold off on D/c until tomorrow, as she has not tolerated any general diet yet, and pain control not achieved enough for d/c. Continue to enc ambulation.Dressing to ABD CDI. AYLIN drain with sang fluid collecting. Enc DB and Cough. Will add IS for assistance. Splinting education provided.
--- NOTE | 2019-11-21 19:06 | PM.PNPO.1 ---
Subjective Subjective Date Patient Seen: 11/21/19 Time Patient Seen: 13:06 Interval history: Patient postop early this morning. She feels much better than yesterday. The pain in her flanks has gone away completely. She has been up with assistance but it has been difficult. She is comfortable till she moves around. Exam Vital Signs (past 8 hours): - 11/21/19 13:00 11/21/19 15:40 Temperature 98.5 F 98.4 F Pulse Rate 85 86 Respiratory Rate 18 16 Blood Pressure 99/48 L 107/50 L Pulse Oximetry 94 95 Oxygen Delivery Method Nasal Cannula Oxygen Flow Rate 0 Narrative Exam Narrative: Dressing is dry. Heart rate has come down through the day. This is probably is much related to her beta ryland as anything. Objective Labs Result Diagrams: 11/21/19 04:52 11/20/19 18:47 Labs: Laboratory Results - last 24 hr 11/20/19 11/20/19 11/20/19 18:47 18:47 20:21 WBC 7.2 RBC 4.34 Hgb 12.2 Hct 36.5 MCV 84.1 MCH 28.1 MCHC 33.4 RDW 14.4 Plt Count 271 Neut % (Auto) 60.6 Lymph % (Auto) 29.1 [place] % (Auto) 6.8 Eos % (Auto) 2.8 Baso % (Auto) 0.7 Neut # (Auto) 4400 Lymph # (Auto) 2100 [place] # (Auto) 500 Eos # (Auto) 200 Baso # (Auto) 0 Sodium 136 L Potassium 4.3 Chloride 102 Carbon Dioxide 28 BUN 22 H Creatinine 0.60 Estimated GFR > 60.0 BUN/Creatinine Ratio 36.7 H Glucose 112 H Calcium 9.1 Total Bilirubin 0.3 AST 33 ALT 19 Alkaline Phosphatase 113 Total Protein 7.2 Albumin 3.8 Globulin 3.4 Albumin/Globulin Ratio 1.1 Lipase 35 COVID-19 PCR Negative 11/21/19 04:52 WBC 11.6 H D RBC 4.39 Hgb 12.2 Hct 37.2 MCV 84.7 MCH 27.8 MCHC 32.8 RDW 14.4 Plt Count 229 Neut % (Auto) 93.0 H D Lymph % (Auto) 5.9 L D [place] % (Auto) 0.9 L Eos % (Auto) 0.0 L Baso % (Auto) 0.2 Neut # (Auto) 86990 H Lymph # (Auto) 700 L [place] # (Auto) 100 Eos # (Auto) 0 Baso # (Auto) 0 Sodium Potassium Chloride Carbon Dioxide BUN Creatinine Estimated GFR BUN/Creatinine Ratio Glucose Calcium Total Bilirubin AST ALT Alkaline Phosphatase Total Protein Albumin Globulin Albumin/Globulin Ratio Lipase COVID-19 PCR Assessment & Plan Post-op Postoperative Procedures: Procedures Operation Date: 11/20/19 21:00 Actual Procedures Side Surgeon p incisional ventral hernia repair overlayed with mesh Not Applicable Tereso Moore MD Postoperative status: doing well Postoperative status narrative: Doing well now about 12 hours after her operation. Postoperative plan narrative: Will plan to keep her another day that she is far from mobile given her size and also she needs to advance her diet and have her pain better controlled. White blood cell count is elevated will follow that. Drained to use the bulb drainage system mint to empty and record it.
[2019-11-22 00:06] VITALS: BP 118/64; PULSE 81; RESP 16; TEMP 36.2; O2SAT 93
[2019-11-22 04:34] VITALS: BP 126/86; PULSE 73; RESP 16; TEMP 36.2; O2SAT 96
[2019-11-22] MEDS: OXYCODONE/ACETAMINOPHEN 5/325 TABLET 2 TAB PO ×2 (06:24→12:21)
[2019-11-22 08:07] VITALS: BP 106/63; PULSE 80
[2019-11-22] MEDS: ENOXAPARIN 40 MG/0.4 ML SYRINGE SUBCUT (08:20)
[2019-11-22] MEDS: SENNOSIDES 8.6 MG TABLET 17.2 MG PO (08:20)
[2019-11-22] MEDS: GABAPENTIN 300 MG CAPSULE PO (08:20)
[2019-11-22] MEDS: SODIUM CHLORIDE 0.9% FLUSH 10 ML IV (08:20)
[2019-11-22 08:25] VITALS: BP 106/63; PULSE 80; RESP 18; TEMP 37; O2SAT 95
[2019-11-22] MEDS: KETOROLAC 15 MG/ML VIAL IV (10:20)
[2019-11-22 11:40] VITALS: BP 104/65; PULSE 93; RESP 18; TEMP 36.7; O2SAT 97
--- NOTE | 2019-11-22 12:28 | PM.DS.1 ---
History of Present Illness History of Present Illness Chief complaint: hernia pain Narrative: The patient is a woman who has had 4 days of mid abdominal pain. Swelling occurred there. It is progressively gotten worse. She has had 4 days of black bowel movements as well. She has never had pain like this before. She has developed crampy abdominal pain throughout her abdomen extending into her back and that is what prompted her to come to the emergency room. She has had a prior laparoscopic cholecystectomy with an incision her belly button. She denies any fever. Discharge Providers Provider Date of admission: 11/20/19 20:21 Discharge Date: 11/22/19 Primary care physician: Geetha Martinez MD Consults: 11/21/19 01:23 Consult to Discharge Planning Routine Comment: Discharge provider: Tereso Moore MD Summary Hospital Course Discharge Diagnosis: One incarcerated incisional ventral hernia acute symptoms Hypertension chronic History of congestive heart failure. No acute failure during this admission Pacemaker secondary to slow heart rate chronic Chronic pain treated with medication Morbid obesity with a BMI of 44 chronic Hospital Course: The patient was taken emergently the operating room where a hernia was found to contain small bowel and omentum. These were reduced and the hernia repaired with an overlay of mesh. Her postoperative course was smooth. She required a fair amount of assistance due to her large size in becoming mobile enough to discharge. Her size also made her operation more challenging and length of the time it took. Patient is ultimately discharged with the drain in place which she has been instructed in its use. She is return on Tuesday to have the drain out. Status at Discharge Cognitive/behavioral status at discharge: oriented Functional status at discharge: independent ambulation Overall status at discharge: patient is progressing back to baseline Exam Vital Signs (past 8 hours): - 11/22/19 04:34 11/22/19 08:07 11/22/19 08:25 Temperature 97.1 F L 98.6 F Pulse Rate 73 80 80 Respiratory Rate 16 18 Blood Pressure 126/86 106/63 106/63 Pulse Oximetry 96 95 11/22/19 11:40 Temperature 98.0 F Pulse Rate 93 H Respiratory Rate 18 Blood Pressure 104/65 Pulse Oximetry 97 Oxygen Delivery Method Room Air Oxygen Flow Rate 0 Narrative Exam Narrative: Lungs are clear to auscultation. No rales or rhonchi. Heart regular rate and rhythm without murmur gallop. Abdomen is protuberant soft. Midline is intact. No cellulitis. Drain is draining serosanguineous thin fluid. Objective Labs Result Diagrams: 11/21/19 04:52 11/20/19 18:47 Discharge Plan Discharge Plan Patient Disposition: Home Discharge comment: Your hernia was repaired with an mesh overlay. You at high risk of recurrence. If you have bleeding apply pressure to the area. It should stop on its own. Discharge orders & Medications Prescriptions: New oxycodone-acetaminophen 5-325 mg tablet See Rx Instructions .ROUTE .COMPLEX PRN (Reason: pain) Qty: 20 RF: 0 Continued ondansetron [Zofran ODT] 4 MG tablet,disintegrating 4 mg Sublingual Q4HP PRNQty: 15 RF: 0 lisinopril 2.5 mg PO BID RF: 0 gabapentin 300 mg Capsule 300 mg PO TID RF: 0 metoprolol succinate 50 mg Tablet Extended Release 24 Hr 50 mg PO DAILY RF: 0 cyclobenzaprine 10 mg tablet 10 mg PO TID PRN (Reason: muscle spasm) Qty: 14 RF: 0 ketorolac 10 mg tablet 10 mg PO TID PRN (Reason: pain) Qty: 15 RF: 0 Discontinued acetaminophen-codeine [Tylenol-Codeine #3] 300-30 mg tablet 1 tab PO Q4-6H PRN (Reason: pain) Qty: 7 RF: 0 Follow up/Referrals: Tereso Moore MD [Physician] - 11/26/19 1:00 pm (You have a 2nd appointment on November 28 at 2:30 pm. If you need to reach a doctor after hours please call our office. If the office is closed listen to the entire message and at the end you will be connected to the page extractor plant operator who will page the doctor on-call for our practice.) Geetha Martinez MD [Primary Care Provider] - Diet/Activity/Treatments Diet: Diet as Tolerated Activity: Do not drive until pain-free off medication. Do not lift over 10 lb or strain for the next 6 weeks. Use a laxative if you are constipated such as milk of magnesia. No pool or tub until after you see your doctor any gives her permission. Skin/Wound/Dressing Care Report to your healthcare provider any signs of infection, such as:: increased pain, unusual drainage and unusual redness Dressing: You may remove the dressing and shower. If you desire, place a new dressing over it once the shower is complete. Visit Report/Discharge Packet Instructions: DI for Samir-Al Drains, DI for Prescription Opioid Use, DI for Ventral Hernia, [facility]: Wound Care, Oxycodone/Acetaminophen (By mouth) Visit Report Forms: Patient Portal/API, Stroke Signs & Symptoms Discharge Data Primary Care Provider: Geetha Martinez
--- NOTE | 2019-11-22 14:08 | PC.NURSE ---
Went over dc instructions and medications with patient, questions answered. Patient instructed on AYLIN, verbalized and returned demonstration and care. Patient aware of follow up appt. Rx sent electronically to pharmacy. Patient taken via WC to vehicle driven by boyfriend, patient had all belongings.
== END 2019-11-22 14:10 | disposition home or self-care (01) | DRG 227 ==
LOC: ED 20:22 → AC 20:38
PROVIDERS: Admitting Provider Specialist; Emergency Provider Emergency Medicine; PCP Family Medicine; Visit Provider Specialist
PROC: (CPT 49000; principal; 2019-11-20 21:00)
DX: K43.0 Incisional hernia with obstruction, without gangrene (principal); I11.0 Hypertensive heart disease with heart failure; E66.01 Morbid (severe) obesity due to excess calories; Z68.41 Body mass index [BMI] 40.0-44.9, adult; I50.9 Heart failure, unspecified; G89.29 Other chronic pain; I45.9 Conduction disorder, unspecified; Z95.810 Presence of automatic (implantable) cardiac defibrillator; Z11.59 Encounter for screening for other viral diseases
CPT/HCPCS: 36415; 49561; 49568; 74177; 80053; 83690; 85025; 87635; 93005; 93010; 99222; 99284; C1781; J0330; J0690; J1100; J1170; J1650; J1885; J2250; J2405; J2543; J2704; J3010; Q9967

== ENCOUNTER → 2020-02-06 11:18 | Outpatient (CLI) | payer OTHER, MEDICAID, SELFPAY ==
[2019-11-21 01:46] VITALS: BMI 43.9
--- NOTE | 2020-02-06 11:18 | DI.CT.S_ITS ---
PROCEDURE: CT ABDOMEN PELVIS WO CON INDICATIONS: r/o hernia recurrence mid upper abd TECHNIQUE: After the administration of oral contrast, 5 mm thick sections acquired from the diaphragms to the symphysis. 5 mm coronal and sagittal reformats were performed. For radiation dose reduction, the following was used: automated exposure control, adjustment of mA and/or kV according to patient size. COMPARISON: [facility], CT, CT ABDOMEN PELVIS W CON, 11/20/2019, 19:36. FINDINGS: Image quality: Excellent. ABDOMEN: Lung bases: Lung bases are clear. Heart size is normal. Solid organs: Liver is normal in size. Gallbladder is surgically absent. Pancreas is normal in size. Spleen is mildly enlarged. No adrenal nodules. Both kidneys are normal in size, without hydronephrosis or nephrolithiasis. Peritoneum and bowel: Bowel loops demonstrate normal wall thickness and caliber. No free fluid or air. Nodes and vessels: No retroperitoneal or mesenteric adenopathy by size criteria. Aorta and inferior vena cava are normal in size. Miscellaneous: Patient is status post surgical repair of previously noted large ventral hernia in mid abdomen. There is a large hypodense collection within subcutaneous soft tissue deep to hernia repair site, and measures up to 11.7 x 10.2 x 11.7 cm in size. Tiny pockets of air within this collection is also not noted. Mild adjacent mesenteric fat stranding is seen. This collection measures approximately 18 Hounsfield unit in density. No communication with underlying abdominal peritoneal space is noted. No underlying abdominal wall muscle involvement. PELVIS: Genitourinary: Bladder wall thickness is normal. Miscellaneous: No inguinal hernias or adenopathy. Bones: No suspicious bony lesions. No vertebral body compression fractures. IMPRESSION: 1. Patient is status post ventral hernia repair with postsurgical changes. 11.7 x 10.2 x 11.7 centimeter well-defined hypodense collection is noted within anterior abdominal wall subcutaneous fat deep to the midline incision site as described above likely represent large postsurgical seroma. 2. There is no peritoneal free fluid or free air. No bowel obstruction or abnormal bowel wall thickening. Colonic diverticulosis without evidence of acute diverticulitis. 3. Nonspecific mild splenomegaly. Dictated by: Ervin Allison M.D. on 02/06/2020 at 10:41 Approved by: Ervin Allison M.D. on 02/06/2020 at 11:01
== END ==
PROVIDERS: PCP Family Medicine; Referring Provider Specialist; Visit Provider Specialist
DX: R22.2 Localized swelling, mass and lump, trunk (principal); K57.90 Diverticulosis of intestine, part unspecified, without perforation or abscess without bleeding; R16.1 Splenomegaly, not elsewhere classified; Z98.890 Other specified postprocedural states; Z87.19 Personal history of other diseases of the digestive system; Z90.49 Acquired absence of other specified parts of digestive tract
CPT/HCPCS: 74176

== ENCOUNTER → 2020-02-08 15:34 | Outpatient (CLI) | payer OTHER, MEDICAID, SELFPAY ==
[2019-11-21 01:46] VITALS: BMI 43.9
== END ==
PROVIDERS: PCP Family Medicine; Visit Provider Surgery
DX: R22.2 Localized swelling, mass and lump, trunk (principal)
CPT/HCPCS: 87070; 87075; 87205

== ENCOUNTER → 2020-04-09 07:44 | Outpatient (CLI) | payer OTHER, MEDICAID, SELFPAY ==
[2019-11-21 01:46] VITALS: BMI 43.9
--- NOTE | 2020-04-09 07:45 | DI.US.S_ITS ---
PROCEDURE: US ABDOMEN LIMITED INDICATIONS: MASS AT SCAR LUMP. ?FLUID VERSUS OTHER TECHNIQUE: Real-time focused scanning was performed of the abdomen, with image documentation. COMPARISON: [facility], CT, CT ABDOMEN PELVIS WO CON, 02/06/2020, 11:19. FINDINGS: There is a complex focus of heterogeneous echogenicity with areas of septation and loculation identified at the incision site of the hernia repair. It is noted that a low-attenuation focus was present within this region on CT of 02/06/2020. IMPRESSION: Complex focus at site of incision as described above. This overall appears most consistent with complex, loculated hematoma or seroma. Abscess is felt to be less likely, although cannot be excluded on the basis of this exam and recommend clinical correlation. Dictated by: Stefany Best M.D. on 04/09/2020 at 9:56 Approved by: Stefany Best M.D. on 04/09/2020 at 10:07
== END ==
PROVIDERS: PCP Family Medicine; Referring Provider Specialist; Visit Provider Specialist
DX: L90.5 Scar conditions and fibrosis of skin (principal); Z87.19 Personal history of other diseases of the digestive system; Z98.890 Other specified postprocedural states
CPT/HCPCS: 76705

== ENCOUNTER 2020-07-25 12:44 | Emergency (ER) | payer OTHER, MEDICAID, SELFPAY ==
[2019-11-21 01:46] VITALS: BMI 43.9
[2020-07-25] VITALS (26 sets, daily range): BP systolic 57–132; BP diastolic 30–100; PULSE 71–92; RESP 16–38; TEMP 36.5; O2SAT 95–100; BMI 52.1
--- NOTE | 2020-07-25 13:05 | DI.RAD.S_ITS ---
PROCEDURE: XR CHEST 1V INDICATIONS: dizziness TECHNIQUE: One view of the chest was acquired. COMPARISON: [facility], CT, CT ABDOMEN PELVIS WO CON, 02/06/2020, 11:19. [facility], CR, XR CHEST 2 VIEWS, 06/12/2018, 13:02. [facility], CR, XR CHEST 1 VIEW, 02/28/2018, 1:06. FINDINGS: Surgical changes and devices: A single lead AICD is seen. Cholecystectomy clips are faintly seen. Lungs and pleura: Low lung volumes are noted. This causes a crowded appearance to the lung markings and limits evaluation. Generalized interstitial prominence can be seen. No large pneumothorax or large pleural effusions are seen. Mediastinum: Mediastinal contours appear normal. Heart size is at the upper limits of normal. Bones and chest wall: No suspicious bony lesions. Age-appropriate bony degenerative changes are seen. Mild levoconvex scoliotic curvature is noted. Overlying soft tissues appear unremarkable. IMPRESSION: Low lung volumes, with mild interstitial prominence. Differential diagnosis includes artifact from the incomplete inspiratory result versus mild pulmonary edema. Postoperative and degenerative changes are seen. Dictated by: Alexis Alexander M.D. on 07/25/2020 at 12:34 Approved by: Alexis Alexander M.D. on 07/25/2020 at 12:36
[2020-07-25 13:42] LABS: Add Manual Diff / Slide Review NO; Basophils Absolute Auto 100 /uL (0-100); Basophils Percent Auto 0.8 % (0-2); Eosinophils Absolute Auto 200 /uL (0-450); Eosinophils Percent Auto 2.1 % (2-4); Hematocrit 43.1 % (36-46); Hemoglobin 14.3 g/dL (12.0-16.0); Lymphocytes Absolute Auto 2200 /uL (1100-4500); Lymphocytes Percent Auto 25.8 % (25-40); Mean Corpuscular HGB Conc 33.1 % (30-36); Mean Corpuscular Hemoglobin 27.5 PG (26-34); Mean Corpuscular Volume 83.2 fL (80-100); Monocytes Absolute Auto 600 /uL (0-900); Monocytes Percent Auto 6.6 % (3-14); Neutrophils Absolute Auto 5400 /uL (1500-7000); Neutrophils Percent Auto 64.7 % (50-75); Platelet Count 257 X10^3/uL (150-400); Red Blood Cell Count 5.18 X10^6/uL (4.0-5.2); Red Cell Distribution Width 14.5 % (11.6-14.8); White Blood Cell Count 8.4 X10^3/uL (4.5-11.0)
[2020-07-25] MEDS: SODIUM CHLORIDE 0.9% 1,000 ML 150 ML IV (13:49)
[2020-07-25 14:03] LABS: Blood Urea Nitrogen 27 mg/dL (7-17); Calcium 9.7 mg/dL (8.4-10.2); Carbon Dioxide 28 mmol/L (22-32); Chloride 103 mmol/L (98-107); Estimated Glomerular Filt Rate > 60.0 mL/min (>60); Glucose 97 mg/dL (70-100); HEMOLYSIS < 15 (0-50); NT-proBNP (BNP-Adult 18+) 541 pg/mL (<125); Potassium 4.1 mmol/L (3.4-5.1); Sodium 138 mmol/L (137-145)
[2020-07-25 14:15] LABS: Troponin I < 0.012 ng/mL (0.01-0.034)
--- NOTE | 2020-07-25 14:37 | PC.NURSE ---
Dr Jurado aware of pts bp 96/43
[2020-07-25] MEDS: SODIUM CHLORIDE 0.9% 1,000 ML 1000 ML IV (15:15)
--- NOTE | 2020-07-25 16:37 | PC.NURSE ---
DR Jurado and Dr Zelaya aware of pts low bp. Ginny received verbal orders from Dr Jurado.
--- NOTE | 2020-07-25 17:31 | ED_ITS ---
HPI - Dizziness General Chief Complaint: Dizziness Stated Complaint: dizzy/light headed/blurry vision Time Seen by Provider: 07/25/20 13:04 Source: patient Mode of arrival: Ambulatory Limitations: no limitations History of Present Illness HPI Narrative: Patient is a 49-year-old female history of congestive heart lesley lure pacemaker and BMI of 52 presenting with dizziness. She states that she felt dizzy and lightheaded around 11:00 a.m.. She did not feel well enough to go to work today. She felt like she was dizzy with out any provocation or palliation. Position did not seem to make it any worse. She has no numbness tingling or weakness. She does have blurry vision but no double vision. She denies any nausea vomiting. She has no chest pain or shortness of breath. She is followed by Dr. Ritter for Cardiology. She now has received a L of IV fluids in the ED and states that she is feeling significantly better. MD complaint: dizziness Description: room spinning Severity: mild Relieving factors: nothing Exacerbating factors: nothing Associated symptoms: denies other symptoms Related Data Home Medications Medication Instructions Recorded Confirmed gabapentin 300 mg PO TID 11/20/19 04/02/20 lisinopril 2.5 mg PO BID 11/20/19 04/02/20 metoprolol succinate 50 mg PO DAILY 11/22/19 04/02/20 Previous Rx's Medication Instructions Recorded ondansetron [Zofran ODT] 4 mg SUBLINGUAL Q4HP PRN #15 odt 11/01/16 cyclobenzaprine 10 mg PO TID PRN #14 tab 02/24/19 ketorolac 10 mg PO TID PRN #15 tab 02/24/19 oxycodone-acetaminophen 5 mg-325 See Rx Instructions .ROUTE 11/26/19 mg tablet .COMPLEX PRN #20 tab Allergies Allergy/AdvReac Type Severity Reaction Status Date / Time No Known Drug Allergies Allergy Verified 07/25/20 12:56 Review of Systems Review of Systems ROS Unobtainable: All systems reviewed & are unremarkable except as noted in HPI and below Constitutional Constitutional: Denies chills, Denies fever(s), Denies lethargy and Denies weakness Cardiovascular Cardiovascular: Denies chest pain, Denies irregular heart rhythm, Denies lightheadedness, Denies palpitations, Denies dyspnea, Denies dyspnea on exertion and Denies orthopnea Respiratory Respiratory: Denies cough, Denies dyspnea, Denies dyspnea on exertion and Denies wheezing Gastrointestinal Gastrointestinal: Denies abdominal pain, Denies change in bowel habits, Denies diarrhea, Denies nausea and Denies vomiting Musculoskeletal Musculoskeletal: Denies back pain and Denies myalgias Integumentary/Breasts Skin/Breast: Denies pruritus, Denies erythema, Denies rash and Denies wounds Neurologic Neurologic: Denies weakness Endocrine Endocrine: Denies palpitations Allergic/Immunologic Allergic/Immunologic: Denies wheezing Patient History Medical History (Updated 07/25/20 @ 19:01 by Casi Omalley DO) Hypertension Seasonal allergies Surgical History History of laparoscopic cholecystectomy Social History household members: significant other and children Smoking Status: Never smoker alcohol intake: former Smoking Status: Never smoker alcohol intake frequency: holidays/special occasions only Substance Use Type: does not use Exam Initial Vital Signs Initial Vital Signs: Vital Signs Temperature 97.7 F 07/25/20 12:56 Pulse Rate 91 H 07/25/20 12:56 Respiratory Rate 16 07/25/20 12:56 Blood Pressure 132/59 L 07/25/20 12:56 Pulse Oximetry 100 07/25/20 12:56 GENERAL: Alert well-appearing 49-year-old female and in no acute distress. HEENT: Head atraumatic,EOMI, pupils reactive, face symmetric, moist mucous membranes CARDIOVASCULAR: Regular rate and rhythm without murmurs, rubs or gallops. RESPIRATORY: Breath sounds equal bilaterally, no wheezes rales or rhonchi. ABDOMEN: Soft, nontender. Normoactive bowel sounds all 4 quadrants. No guar ding or rebound. EXTREMITIES: Normal range of motion, no clubbing or edema. Neurovascularly intact NEUROLOGICAL: Alert and oriented x4.Normal gait and speech. Cranial nerves II through XII grossly intact. Good [id number], good ivbk-hy-vtil, strength equal bilaterally, no dysarthria or aphasia, sensation in tact to soft touch bilaterally, no visual changes, no facial droop SKIN: Warm, dry, no laceration, no petechiae, no rashes or lesions. Scores HEART Score Heart Score history: Slightly Suspicious Heart Score EKG: Normal Heart Score Age: 45-64 years old Heart Score risk factors: 1-2 risk factors Heart Score troponin: < or = to normal limit Heart Score Total: 2 NIH Stroke Scale Level of Conciousness: Alert, keenly responsive Ask month/age: Answers both questions correctly. Open/close eyes, close hand: Performs both tasks correctly Best gaze horizontal: Normal Visual armstrong: No visual loss Facial palsy: Normal symetrical movement Left arm drift: No drift for full 10 sec Right arm drift: No drift for full 10 sec Left leg drift: No drift for full 5 sec Right leg drift: No drift for full 5 sec Limb ataxia: Absent Sensory on face/arms/legs: Normal, no sensory loss Best language: No aphasia, normal Dysarthria: Normal Extinction or inattention: No abnormality Total NIH Stroke scale score: 0 Course Orders Ordered: ED Orders 07/25/20 17:40 EKG-12 Lead Stat 07/25/20 18:00 Troponin & CK Cardiac Panel Stat Discontinued Medications Sodium Chloride (Normal Saline 0.9%) 1,000 mls @ 150 mls/hr IV CONT TOMMIE Last Infusion: 07/25/20 19:05 Dose: 0 mls/hr Documented by: [email or web address] Admin: 07/25/20 13:49 Dose: 150 mls/hr Documented by: [email or web address] Sodium Chloride (Normal Saline 0.9%) 1,000 mls @ 1,000 mls/hr IV BOLUS ONE Stop: 07/25/20 15:45 Last Infusion: 07/25/20 17:21 Dose: 0 mls/hr Documented by: [email or web address] Admin: 07/25/20 15:15 Dose: 1,000 mls/hr Documented by: [email or web address] Vital Signs Vital signs: Vital Signs - 8 hr 07/25/20 16:30 07/25/20 16:31 07/25/20 16:34 Pulse Rate 77 75 71 Respiratory Rate 20 19 21 Blood Pressure 66/34 L 76/40 L Pulse Oximetry 98 98 98 07/25/20 17:00 07/25/20 17:30 07/25/20 18:00 Pulse Rate 75 80 75 Respiratory Rate 17 29 H 26 H Blood Pressure 124/57 L 115/58 L Pulse Oximetry 97 97 98 07/25/20 18:01 07/25/20 18:30 07/25/20 18:31 Pulse Rate 79 80 79 Respiratory Rate 38 H 24 21 Blood Pressure 112/53 L 129/100 H Pulse Oximetry 98 98 98 07/25/20 19:00 07/25/20 19:01 07/25/20 19:12 Pulse Rate 74 74 71 Respiratory Rate 24 28 H 16 Blood Pressure 111/56 L 111/72 Pulse Oximetry 97 97 95 MDM - Dizziness Lab Data Attestation: I reviewed the patient's lab results. Result diagrams: 07/25/20 13:31 07/25/20 13:31 Labs: Lab Results 07/25/20 07/25/20 07/25/20 Range/Units 13:31 13:31 13:31 WBC 8.4 (4.5-11.0) X10^3/uL RBC 5.18 (4.0-5.2) X10^6/uL Hgb 14.3 (12.0-16.0) g/dL Hct 43.1 (36-46) % MCV 83.2 (80-100) fL MCH 27.5 (26-34) PG MCHC 33.1 (30-36) % RDW 14.5 (11.6-14.8) % Plt Count 257 (150-400) X10^3/uL Neut % (Auto) 64.7 (50-75) % Lymph % (Auto) 25.8 (25-40) % Rapides % (Auto) 6.6 (3-14) % Eos % (Auto) 2.1 (2-4) % Baso % (Auto) 0.8 (0-2) % Neut # (Auto) 5400 (9678-6005) /uL Lymph # (Auto) 2200 (8783-2081) /uL Rapides # (Auto) 600 (0-900) /uL Eos # (Auto) 200 (0-450) /uL Baso # (Auto) 100 (0-100) /uL Sodium 138 (137-145) mmol/L Potassium 4.1 (3.4-5.1) mmol/L Chloride 103 (98-107) mmol/L Carbon Dioxide 28 (22-32) mmol/L BUN 27 H (7-17) mg/dL Creatinine 0.60 (0.52-1.04) mg/dL Estimated GFR > 60.0 (>60) mL/min BUN/Creatinine Ratio 45.0 H (6-22) Glucose 97 (70-100) mg/dL Calcium 9.7 (8.4-10.2) mg/dL Total Creatine Kinase (30-135) U/L CK-MB (CK-2) CK-MB (CK-2) Rel Index Troponin I < 0.012 (0.01-0.034) ng/mL NT-Pro-B Natriuret Pep 541 H (<125) pg/mL 07/25/20 Range/Units 18:00 WBC (4.5-11.0) X10^3/uL RBC (4.0-5.2) X10^6/uL Hgb (12.0-16.0) g/dL Hct (36-46) % MCV (80-100) fL MCH (26-34) PG MCHC (30-36) % RDW (11.6-14.8) % Plt Count (150-400) X10^3/uL Neut % (Auto) (50-75) % Lymph % (Auto) (25-40) % Rapides % (Auto) (3-14) % Eos % (Auto) (2-4) % Baso % (Auto) (0-2) % Neut # (Auto) (1708-8224) /uL Lymph # (Auto) (9297-9578) /uL Rapides # (Auto) (0-900) /uL Eos # (Auto) (0-450) /uL Baso # (Auto) (0-100) /uL Sodium (137-145) mmol/L Potassium (3.4-5.1) mmol/L Chloride (98-107) mmol/L Carbon Dioxide (22-32) mmol/L BUN (7-17) mg/dL Creatinine (0.52-1.04) mg/dL Estimated GFR (>60) mL/min BUN/Creatinine Ratio (6-22) Glucose (70-100) mg/dL Calcium (8.4-10.2) mg/dL Total Creatine Kinase 30 (30-135) U/L CK-MB (CK-2) TNP CK-MB (CK-2) Rel Index TNP Troponin I < 0.012 (0.01-0.034) ng/mL NT-Pro-B Natriuret Pep (<125) pg/mL ECG Data Attestation: I personally reviewed and interpreted this ECG as follows: Prior ECG tracings: available for review Interpretation: Sinus rhythm rate 80 p.r. interval 152 QRS [address] depressions noted in inferior leads without ST elevation seems to be slightly more prominent than previous EKG EKG 2. Sinus rhythm rate [address] depressions no acute ST changes MDM Narrative Medical decision making narrative: The patient is dizzy and lightheaded with some ST changes. Pacemaker was interrogated no abnormal findings were found. She is noted to have a couple of low blood pressures in the ED however, they were low for approximately 1 hour in improved with 1 L of IV fluids. Patient's symptoms improved significantly she is able to stand she no longer feels dizzy or lightheaded. She has no chest pain or shortness of breath. 2- troponins without chest pain. She has no focal neurologic deficits. At this time she feels ready and able to go home. Discharge Plan Departure Patient Disposition: Home Clinical Impression: Acute dehydration Instructions: Orthostatic Hypotension Activity Restrictions/Additional Instructions: *You have been diagnosed with dehydration *What to do: At this time recommend increasing fluid. I think her symptoms related to some mild dehydration. *Continue to take medications as directed *Follow up with your primary care provider in 2-3 days *Return to ER if you should have increasing dizziness lightheadedness or passing out or any new, worsening or concerning symptoms Prescriptions: No Action ondansetron [Zofran ODT] 4 MG tablet,disintegrating 4 mg Sublingual Q4HP PRNQty: 15 RF: 0 oxycodone-acetaminophen 5-325 mg tablet See Rx Instructions .ROUTE .COMPLEX PRN (Reason: painful procedure) Qty: 20 RF: 0 lisinopril 2.5 mg PO BID RF: 0 gabapentin 300 mg Capsule 300 mg PO TID RF: 0 metoprolol succinate 50 mg Tablet Extended Release 24 Hr 50 mg PO DAILY RF: 0 cyclobenzaprine 10 mg tablet 10 mg PO TID PRN (Reason: muscle spasm) Qty: 14 RF: 0 ketorolac 10 mg tablet 10 mg PO TID PRN (Reason: pain) Qty: 15 RF: 0 Referrals: Geetha Martinez MD [Primary Care Provider] - Tasha Ritter MD [Physician] -
[2020-07-25 18:16] LABS: Creatine Kinase 30 U/L (30-135)
[2020-07-25 18:29] LABS: Troponin I < 0.012 ng/mL (0.01-0.034)
== END 2020-07-25 19:13 | disposition home or self-care (01) ==
PROVIDERS: Emergency Medicine; Emergency Provider Emergency Medicine; PCP Family Medicine
DX: E86.0 Dehydration (principal); R42 Dizziness and giddiness; I95.9 Hypotension, unspecified
CPT/HCPCS: 36415; 71045; 80048; 82550; 83880; 84484; 85025; 93005; 96360; 96361; 99284

== ENCOUNTER → 2020-12-12 10:44 | Outpatient (CLI) | payer OTHER, MEDICAID, SELFPAY ==
[2019-11-21 01:46] VITALS: BMI 43.9
[2020-12-12 12:13] LABS: COVID19 -Nasal RAPID Negative (Negative)
== END ==
PROVIDERS: PCP Family Medicine; Referring Provider Nurse Practitioner; Visit Provider Nurse Practitioner
DX: Z20.822 Contact with and (suspected) exposure to COVID-19 (principal)
CPT/HCPCS: 87635

== ENCOUNTER 2021-02-23 16:06 | Observation (INO) | payer OTHER, MEDICAID, SELFPAY ==
[2019-11-21 01:46] VITALS: BMI 43.9
[2021-02-23] VITALS (28 sets, daily range): BP systolic 106–178; BP diastolic 51–86; PULSE 99–119; RESP 20–59; TEMP 37.1; O2SAT 94–99
--- NOTE | 2021-02-23 16:32 | DI.RAD.S_ITS ---
PROCEDURE: XR CHEST 1V INDICATIONS: chest pain TECHNIQUE: One view of the chest was acquired. COMPARISON: [facility], CR, XR CHEST 1V, 07/25/2020, 13:17. FINDINGS: Surgical changes and devices: Redemonstrated left cardiac device. Lungs and pleura: Reduced lung volumes. No consolidation, pleural effusions or pneumothorax. Mediastinum: Mediastinal contours appear normal. Heart size is normal. Bones and chest wall: No suspicious bony lesions. Overlying soft tissues appear unremarkable. IMPRESSION: No acute cardiopulmonary abnormality. Dictated by: Armen Begum M.D. on 02/23/2021 at 16:42 Approved by: Armen Begum M.D. on 02/23/2021 at 16:43
[2021-02-23 16:40] LABS: Add Manual Diff / Slide Review NO; Basophils Absolute Auto 0 /uL (0-100); Basophils Percent Auto 0.6 % (0-2); Eosinophils Absolute Auto 100 /uL (0-450); Hematocrit 44.4 % (36-46); Hemoglobin 14.6 g/dL (12.0-16.0); INR 1.1 (0.9-1.3); Lymphocytes Absolute Auto 1400 /uL (1100-4500); Lymphocytes Percent Auto 17.4 % (25-40); Mean Corpuscular HGB Conc 32.8 % (30-36); Mean Corpuscular Hemoglobin 25.8 PG (26-34); Mean Corpuscular Volume 78.7 fL (80-100); Monocytes Absolute Auto 500 /uL (0-900); Neutrophils Absolute Auto 6000 /uL (1500-7000); Platelet Count 265 X10^3/uL (150-400); Prothrombin Time 12.4 SECONDS (10.1-12.7); Red Blood Cell Count 5.64 X10^6/uL (4.0-5.2); Red Cell Distribution Width 15.8 % (11.6-14.8)
--- NOTE | 2021-02-23 16:45 | ED.CHESTPAIN ---
HPI - Chest Pain <Casi Shahram, DO - Last Filed: 02/24/21 18:18> General Chief Complaint: Chest Pain Stated Complaint: Chest Pain, Pace Maker Time Seen by Provider: 02/23/21 16:38 Source: patient Mode of arrival: Wheelchair History of Present Illness HPI narrative: Patient is a 50-year-old female with history of nonischemic cardiomyopathy followed by Dr. Ritter at [facility] presenting today with increasing chest discomfort and shortness of breath. She states that over the last 3 days she has had ongoing chest discomfort all across her chest and all across her back. Describes as sharp and stabbing. Non radiating. Is complaining of orthopnea over the last few nights and difficulty sleeping along with shortness of breath with exertion. She has no conversational dyspnea and she is not hypoxic. Biggest complaint seems to be the left-sided chest discomfort. She is taking multiple cardiac medications including digoxin and metoprolol. She denies any fever or chills no productive cough. Denies any lower extremity swelling. Related Data Home Medications Medication Instructions Recorded Confirmed gabapentin 300 mg capsule 300 mg PO TID 11/20/19 02/24/21 amitriptyline 50 mg tablet 100 mg PO DAILY 02/24/21 02/24/21 digoxin 125 mcg (0.125 mg) tablet 250 mcg PO DAILY 02/24/21 02/24/21 fluticasone propionate 50 1 spray INTRANASAL DAILY 02/24/21 02/24/21 mcg/actuation nasal spray,suspension hydroxyzine HCl 25 mg tablet 25 mg PO TID 02/24/21 02/24/21 lisinopril 2.5 mg tablet 2.5 mg PO TID 02/24/21 02/24/21 metolazone 2.5 mg tablet 2.5 mg PO USEASDIRECTD 02/24/21 02/24/21 metoprolol succinate 50 mg 50 mg PO DAILY 02/24/21 02/24/21 tablet,extended release 24 hr naproxen 500 mg tablet 500 mg PO BID 02/24/21 02/24/21 potassium chloride 20 mEq 20 meq PO QWEEK 02/24/21 02/24/21 tablet,extended release sertraline 150 mg capsule 150 mg PO DAILY 02/24/21 02/24/21 torsemide 20 mg tablet 40 mg PO BID 02/24/21 02/24/21 Previous Rx's Medication Instructions Recorded cyclobenzaprine 10 mg tablet 10 mg PO TID PRN #14 tab 02/24/19 Allergies Allergy/AdvReac Type Severity Reaction Status Date / Time No Known Drug Allergies Allergy Verified 07/25/20 12:56 Review of Systems <Casi Omalley DO - Last Filed: 02/24/21 18:18> Review of Systems Narrative: GENERAL: Denies chills, fatigue, malaise, fever, sweats, travel HEENT: Denies sinus pain, ear pain, sore throat, difficulty swallowing, neck pain RESPIRATORY: See HPI CARDIOVASCULAR: See HPI GASTROINTESTINAL: Denies nausea, vomiting, abdominal pain, diarrhea, constipation, melena. : Denies dysuria, frequency, incontinence, hematuria, urinary retention, flank pain. MUSCULOSKELETAL: Denies weakness, joint pain, or bony pain SKIN: No rash, no erythema, no pruritus NEUROLOGIC: Denies weakness, dizziness, headache, numbness, change in speech, confusion PSYCHIATRIC: No concerning psychosocial issues. 12 point review of systems is negative except for those stated above and HPI Patient History <Casi Omalley DO - Last Filed: 02/24/21 18:18> Medical History Dizziness History of congestive heart failure Hypertension Pacemaker Seasonal allergies Surgical History History of laparoscopic cholecystectomy Social History household members: significant other and children Smoking Status: Never smoker alcohol intake: former Smoking Status: Never smoker alcohol intake frequency: holidays/special occasions only Substance Use Type: does not use Exam <Casi Omalley DO - Last Filed: 02/24/21 18:18> Initial Vital Signs Initial Vital Signs: Vital Signs Temperature 98.7 F 02/23/21 16:18 Pulse Rate 119 H 02/23/21 16:18 Respiratory Rate 24 02/23/21 16:18 Blood Pressure 130/60 02/23/21 16:18 Pulse Oximetry 97 02/23/21 16:18 GENERAL: Alert 50-year-old female clutching left side of chest appears in pain no diaphoresis HEENT: Head atraumatic,EOMI, pupils reactive, face symmetric, moist mucous membranes CARDIOVASCULAR: Regular rate and rhythm without murmurs, rubs or gallops. RESPIRATORY: Breath sounds equal bilaterally, no wheezes rales or rhonchi. ABDOMEN: Soft, nontender. Normoactive bowel sounds all 4 quadrants. No guarding or rebound. EXTREMITIES: Normal range of motion, no clubbing or edema. Neurovascularly intact NEUROLOGICAL: Alert and oriented x4.Normal gait and speech. SKIN: Warm, dry, no laceration, no petechiae, no rashes or lesions. <Manjit Egan, DO - Last Filed: 02/24/21 20:44> Initial Vital Signs Initial Vital Signs: Vital Signs Temperature 98.7 F 02/23/21 16:18 Pulse Rate 119 H 02/23/21 16:18 Respiratory Rate 24 02/23/21 16:18 Blood Pressure 130/60 02/23/21 16:18 Pulse Oximetry 97 02/23/21 16:18 Course <Casi Omalley, DO - Last Filed: 02/24/21 18:18> Orders Ordered: ED Orders 02/25/21 05:00 Complete Blood Count AUTO DIFF Routine Comprehensive Metabolic Panel Routine Acetaminophen (Acetaminophen 325 Mg Tablet) 650 mg PO Q6HR PRN PRN Reason: Fever/Mild Pain (1-3) Amitriptyline HCl (Amitriptyline 25 Mg Tablet) 100 mg PO DAILY [facility] Atorvastatin Calcium (Atorvastatin 20 Mg Tablet) 40 mg PO BEDTIME [facility] Cyclobenzaprine HCl (Cyclobenzaprine 10 Mg Tablet) 10 mg PO TID [facility] Last Admin: 02/24/21 14:57 Dose: 10 mg Documented by: Admin: 02/24/21 11:19 Dose: 10 mg Documented by: ISABELA Digoxin (Digoxin 0.125 Mg Tablet) 0.25 mg PO DAILY@1700 [facility] Last Admin: 02/24/21 17:36 Dose: 0.25 mg Documented by: VENICE Enoxaparin Sodium (Enoxaparin 40 Mg/0.4 Ml Syringe) 40 mg SUBCUT BID [facility] Gabapentin (Gabapentin 300 Mg Capsule) 300 mg PO TID [facility] Last Admin: 02/24/21 14:57 Dose: 300 mg Documented by: Admin: 02/24/21 11:19 Dose: 300 mg Documented by: ISABELA Hydroxyzine Pamoate (Hydroxyzine Pamoate 25 Mg Capsule) 25 mg PO TID [facility] Last Admin: 02/24/21 15:20 Dose: 25 mg Documented by: VENICE Ibuprofen (Ibuprofen 600 Mg Tablet) 600 mg PO Q6HR PRN PRN Reason: Fever/Mild Pain (1-3) Lisinopril (Lisinopril 5 Mg Tablet) 2.5 mg PO TID [facility] Last Admin: 02/24/21 14:56 Dose: 2.5 mg Documented by: VENICE Metoprolol Succinate (Metoprolol Er 50 Mg Tablet) 50 mg PO BID [facility] Last Admin: 02/24/21 14:57 Dose: 50 mg Documented by: VENICE Naloxone HCl (Naloxone 0.4 Mg/Ml Vial) 0.2 mg IV Q2MIN PRN PRN Reason: Opiate Reversal Ondansetron HCl (Ondansetron 4 Mg/2 Ml Inj) 4 mg IV Q8HR PRN PRN Reason: Nausea And Vomiting Last Admin: 02/24/21 11:26 Dose: 4 mg Documented by: ISABELA Oxycodone HCl (Oxycodone Ir 5 Mg Tablet) 5 mg PO Q6HR PRN PRN Reason: Pain, Moderate (4-6) Last Admin: 02/24/21 11:24 Dose: 5 mg Documented by: ISABELA Sertraline HCl (Sertraline 50 Mg Tablet) 150 mg PO DAILY [facility] Torsemide (Torsemide 10 Mg Tablet) 20 mg PO BID [facility] Discontinued Medications Amitriptyline HCl (Amitriptyline 75 Mg Tablet) 150 mg PO NOW ONE Stop: 02/23/21 23:04 Last Admin: 02/24/21 01:55 Dose: Not Given Documented by: SEBAS Amitriptyline HCl (Amitriptyline 25 Mg Tablet) 100 mg PO NOW ONE Stop: 02/23/21 23:24 Last Admin: 02/23/21 23:32 Dose: 100 mg Documented by: SEBAS Amitriptyline HCl (Amitriptyline 10 Mg Tablet) 50 mg PO NOW ONE Stop: 02/23/21 23:24 Last Admin: 02/23/21 23:32 Dose: 50 mg Documented by: SEBAS Aspirin (Aspirin 81 Mg Chew Tab) 324 mg PO NOW ONE Stop: 02/23/21 16:55 Last Admin: 02/23/21 17:03 Dose: 324 mg Documented by: BENJAMIN Aspirin (Aspirin Ec 81 Mg Tablet) 81 mg PO NOW ONE Stop: 02/24/21 11:03 Last Admin: 02/24/21 13:24 Dose: 81 mg Documented by: VENICE Atorvastatin Calcium (Atorvastatin 20 Mg Tablet) 40 mg PO NOW ONE Stop: 02/24/21 11:03 Last Admin: 02/24/21 11:23 Dose: 40 mg Documented by: ISABELA Digoxin (Digoxin 0.125 Mg Tablet) 0.125 mg PO DAILY [facility] Gabapentin (Gabapentin 300 Mg Capsule) 300 mg PO NOW ONE Stop: 02/23/21 23:04 Last Admin: 02/23/21 23:31 Dose: 300 mg Documented by: SEBAS Hydroxyzine Pamoate (Hydroxyzine Pamoate 25 Mg Capsule) 25 mg PO NOW ONE Stop: 02/23/21 23:04 Last Admin: 02/23/21 23:32 Dose: 25 mg Documented by: SEBAS Hydroxyzine Pamoate (Hydroxyzine Pamoate 25 Mg Capsule) 50 mg PO DAILY [facility] Last Admin: 02/24/21 11:20 Dose: 50 mg Documented by: ISABELA Magnesium Sulfate (Magnesium Sulfate) 2 gm in 50 mls @ 25 mls/hr IV NOW ONE Stop: 02/24/21 16:03 Last Infusion: 02/24/21 17:33 Dose: 0 mls/hr Documented by: VENICE Cosigned by: KATE Admin: 02/24/21 15:00 Dose: 25 mls/hr Documented by: VENICE Cosigned by: KATE Ketorolac Tromethamine (Ketorolac 30 Mg/Ml Vial) 15 mg IV NOW ONE Stop: 02/24/21 07:18 Last Admin: 02/24/21 07:29 Dose: 15 mg Documented by: ISABELA Lisinopril (Lisinopril 5 Mg Tablet) 2.5 mg PO BID [facility] Last Admin: 02/24/21 11:21 Dose: 2.5 mg Documented by: ISABELA Metoprolol Succinate (Metoprolol Er 50 Mg Tablet) 50 mg PO DAILY [facility] Morphine Sulfate (Morphine 2 Mg/Ml Inj) 2 mg IV NOW ONE Stop: 02/23/21 19:06 Last Admin: 02/23/21 19:30 Dose: 2 mg Documented by: SEBAS Morphine Sulfate (Morphine 2 Mg/Ml Inj) 2 mg IV NOW ONE Stop: 02/24/21 08:52 Last Admin: 02/24/21 09:08 Dose: 2 mg Documented by: ISABELA Nitroglycerin (Nitroglycerin 0.4 Mg Sl Tab) 0.4 mg SL NOW ONE Stop: 02/23/21 18:11 Last Admin: 02/23/21 18:24 Dose: 0.4 mg Documented by: BENJAMIN Potassium Chloride (Potassium Chloride 20 Meq Tab) 40 meq PO NOW ONE Stop: 02/23/21 18:37 Last Admin: 02/23/21 19:31 Dose: 40 meq Documented by: SEBAS Potassium Chloride (Potassium Chloride 20 Meq Tab) 40 meq PO NOW ONE Stop: 02/24/21 14:05 Last Admin: 02/24/21 15:01 Dose: 40 meq Documented by: VENICE Vital Signs Vital signs: Vital Signs - 8 hr 02/24/21 10:15 02/24/21 10:30 02/24/21 10:45 Pulse Rate 104 H 103 H 105 H Respiratory Rate 19 19 19 Blood Pressure 121/81 Pulse Oximetry 95 95 95 02/24/21 11:00 Pulse Rate 102 H Respiratory Rate 18 Blood Pressure 106/74 Pulse Oximetry 95 <Manjit Egan, - Last Filed: 02/24/21 20:44> Orders Ordered: ED Orders 02/25/21 05:00 Complete Blood Count AUTO DIFF Routine Comprehensive Metabolic Panel Routine Acetaminophen (Acetaminophen 325 Mg Tablet) 650 mg PO Q6HR PRN PRN Reason: Fever/Mild Pain (1-3) Amitriptyline HCl (Amitriptyline 25 Mg Tablet) 100 mg PO DAILY [facility] Atorvastatin Calcium (Atorvastatin 20 Mg Tablet) 40 mg PO BEDTIME [facility] Cyclobenzaprine HCl (Cyclobenzaprine 10 Mg Tablet) 10 mg PO TID [facility] Last Admin: 02/24/21 14:57 Dose: 10 mg Documented by: Admin: 02/24/21 11:19 Dose: 10 mg Documented by: ISABELA Digoxin (Digoxin 0.125 Mg Tablet) 0.25 mg PO DAILY@1700 [facility] Last Admin: 02/24/21 17:36 Dose: 0.25 mg Documented by: VENICE Enoxaparin Sodium (Enoxaparin 40 Mg/0.4 Ml Syringe) 40 mg SUBCUT BID [facility] Gabapentin (Gabapentin 300 Mg Capsule) 300 mg PO TID [facility] Last Admin: 02/24/21 14:57 Dose: 300 mg Documented by: Admin: 02/24/21 11:19 Dose: 300 mg Documented by: ISABELA Hydroxyzine Pamoate (Hydroxyzine Pamoate 25 Mg Capsule) 25 mg PO TID [facility] Last Admin: 02/24/21 15:20 Dose: 25 mg Documented by: VENICE Ibuprofen (Ibuprofen 600 Mg Tablet) 600 mg PO Q6HR PRN PRN Reason: Fever/Mild Pain (1-3) Lisinopril (Lisinopril 5 Mg Tablet) 2.5 mg PO TID [facility] Last Admin: 02/24/21 14:56 Dose: 2.5 mg Documented by: VENICE Metoprolol Succinate (Metoprolol Er 50 Mg Tablet) 50 mg PO BID [facility] Last Admin: 02/24/21 14:57 Dose: 50 mg Documented by: VENICE Naloxone HCl (Naloxone 0.4 Mg/Ml Vial) 0.2 mg IV Q2MIN PRN PRN Reason: Opiate Reversal Ondansetron HCl (Ondansetron 4 Mg/2 Ml Inj) 4 mg IV Q8HR PRN PRN Reason: Nausea And Vomiting Last Admin: 02/24/21 11:26 Dose: 4 mg Documented by: ISABELA Oxycodone HCl (Oxycodone Ir 5 Mg Tablet) 5 mg PO Q6HR PRN PRN Reason: Pain, Moderate (4-6) Last Admin: 02/24/21 11:24 Dose: 5 mg Documented by: ISABELA Sertraline HCl (Sertraline 50 Mg Tablet) 150 mg PO DAILY [facility] Torsemide (Torsemide 10 Mg Tablet) 20 mg PO BID [facility] Discontinued Medications Amitriptyline HCl (Amitriptyline 75 Mg Tablet) 150 mg PO NOW ONE Stop: 02/23/21 23:04 Last Admin: 02/24/21 01:55 Dose: Not Given Documented by: SEBAS Amitriptyline HCl (Amitriptyline 25 Mg Tablet) 100 mg PO NOW ONE Stop: 02/23/21 23:24 Last Admin: 02/23/21 23:32 Dose: 100 mg Documented by: SEBAS Amitriptyline HCl (Amitriptyline 10 Mg Tablet) 50 mg PO NOW ONE Stop: 02/23/21 23:24 Last Admin: 02/23/21 23:32 Dose: 50 mg Documented by: SEBAS Aspirin (Aspirin 81 Mg Chew Tab) 324 mg PO NOW ONE Stop: 02/23/21 16:55 Last Admin: 02/23/21 17:03 Dose: 324 mg Documented by: BENJAMIN Aspirin (Aspirin Ec 81 Mg Tablet) 81 mg PO NOW ONE Stop: 02/24/21 11:03 Last Admin: 02/24/21 13:24 Dose: 81 mg Documented by: VENICE Atorvastatin Calcium (Atorvastatin 20 Mg Tablet) 40 mg PO NOW ONE Stop: 02/24/21 11:03 Last Admin: 02/24/21 11:23 Dose: 40 mg Documented by: ISABELA Digoxin (Digoxin 0.125 Mg Tablet) 0.125 mg PO DAILY [facility] Gabapentin (Gabapentin 300 Mg Capsule) 300 mg PO NOW ONE Stop: 02/23/21 23:04 Last Admin: 02/23/21 23:31 Dose: 300 mg Documented by: SEBAS Hydroxyzine Pamoate (Hydroxyzine Pamoate 25 Mg Capsule) 25 mg PO NOW ONE Stop: 02/23/21 23:04 Last Admin: 02/23/21 23:32 Dose: 25 mg Documented by: SEBAS Hydroxyzine Pamoate (Hydroxyzine Pamoate 25 Mg Capsule) 50 mg PO DAILY [facility] Last Admin: 02/24/21 11:20 Dose: 50 mg Documented by: ISABELA Magnesium Sulfate (Magnesium Sulfate) 2 gm in 50 mls @ 25 mls/hr IV NOW ONE Stop: 02/24/21 16:03 Last Infusion: 02/24/21 17:33 Dose: 0 mls/hr Documented by: VENICE Cosigned by: KATE Admin: 02/24/21 15:00 Dose: 25 mls/hr Documented by: VENICE Cosigned by: KATE Ketorolac Tromethamine (Ketorolac 30 Mg/Ml Vial) 15 mg IV NOW ONE Stop: 02/24/21 07:18 Last Admin: 02/24/21 07:29 Dose: 15 mg Documented by: ISABELA Lisinopril (Lisinopril 5 Mg Tablet) 2.5 mg PO BID [facility] Last Admin: 02/24/21 11:21 Dose: 2.5 mg Documented by: ISABELA Metoprolol Succinate (Metoprolol Er 50 Mg Tablet) 50 mg PO DAILY [facility] Morphine Sulfate (Morphine 2 Mg/Ml Inj) 2 mg IV NOW ONE Stop: 02/23/21 19:06 Last Admin: 02/23/21 19:30 Dose: 2 mg Documented by: SEBAS Morphine Sulfate (Morphine 2 Mg/Ml Inj) 2 mg IV NOW ONE Stop: 02/24/21 08:52 Last Admin: 02/24/21 09:08 Dose: 2 mg Documented by: ISABELA Nitroglycerin (Nitroglycerin 0.4 Mg Sl Tab) 0.4 mg SL NOW ONE Stop: 02/23/21 18:11 Last Admin: 02/23/21 18:24 Dose: 0.4 mg Documented by: BENJAMIN Potassium Chloride (Potassium Chloride 20 Meq Tab) 40 meq PO NOW ONE Stop: 02/23/21 18:37 Last Admin: 02/23/21 19:31 Dose: 40 meq Documented by: SEBAS Potassium Chloride (Potassium Chloride 20 Meq Tab) 40 meq PO NOW ONE Stop: 02/24/21 14:05 Last Admin: 02/24/21 15:01 Dose: 40 meq Documented by: VENICE Vital Signs Vital signs: Vital Signs - 8 hr 02/24/21 10:15 02/24/21 10:30 02/24/21 10:45 Pulse Rate 104 H 103 H 105 H Respiratory Rate 19 19 19 Blood Pressure 121/81 Pulse Oximetry 95 95 95 02/24/21 11:00 Pulse Rate 102 H Respiratory Rate 18 Blood Pressure 106/74 Pulse Oximetry 95 MDM - Chest Pain <Casi Omalley DO - Last Filed: 02/24/21 18:18> Lab Data Result diagrams: 02/23/21 16:25 02/24/21 13:20 Labs: Lab Results 02/23/21 02/23/21 02/23/21 Range/Units 16:25 16:25 16:25 WBC 8.0 (4.5-11.0) X10^3/uL RBC 5.64 H (4.0-5.2) X10^6/uL Hgb 14.6 (12.0-16.0) g/dL Hct 44.4 (36-46) % MCV 78.7 L (80-100) fL MCH 25.8 L (26-34) PG MCHC 32.8 (30-36) % RDW 15.8 H (11.6-14.8) % Plt Count 265 (150-400) X10^3/uL Neut % (Auto) 75.0 (50-75) % Lymph % (Auto) 17.4 L (25-40) % [place] % (Auto) 6.0 (3-14) % Eos % (Auto) 1.0 L (2-4) % Baso % (Auto) 0.6 (0-2) % Neut # (Auto) 6000 (9603-0221) /uL Lymph # (Auto) 1400 (4078-4454) /uL [place] # (Auto) 500 (0-900) /uL Eos # (Auto) 100 (0-450) /uL Baso # (Auto) 0 (0-100) /uL PT 12.4 (10.1-12.7) SECONDS INR 1.1 (0.9-1.3) APTT (26.4-36.2) SECONDS Sodium 135 L (137-145) mmol/L Potassium 3.0 L (3.4-5.1) mmol/L Chloride 93 L (98-107) mmol/L Carbon Dioxide 35 H (22-32) mmol/L BUN 20 H (7-17) mg/dL Creatinine 0.84 (0.52-1.04) mg/dL Estimated GFR > 60.0 (>60) mL/min BUN/Creatinine Ratio 23.8 H (6-22) Glucose 174 H (70-100) mg/dL Calcium 9.9 (8.4-10.2) mg/dL Magnesium 1.5 L (1.6-2.3) mg/dL Total Bilirubin 0.5 (0.2-1.3) mg/dL AST 32 (14-36) IU/L ALT 26 (<35) IU/L Alkaline Phosphatase 133 H (38-126) U/L Total Creatine Kinase 38 (30-135) U/L CK-MB (CK-2) TNP CK-MB (CK-2) Rel Index TNP Troponin I < 0.012 (0.01-0.034) ng/mL NT-Pro-B Natriuret Pep (<125) pg/mL Total Protein 8.9 H (6.3-8.2) g/dL Albumin 4.5 (3.5-5.0) g/dL Globulin 4.4 H (1.7-4.1) g/dL Albumin/Globulin Ratio 1.0 (1.0-2.8) Lipase 74 (23-300) U/L Digoxin (0.8-2.0) ng/mL SARS-CoV-2 (PCR) (Negative) 02/23/21 02/23/21 02/23/21 Range/Units 16:25 16:25 16:25 WBC (4.5-11.0) X10^3/uL RBC (4.0-5.2) X10^6/uL Hgb (12.0-16.0) g/dL Hct (36-46) % MCV (80-100) fL MCH (26-34) PG MCHC (30-36) % RDW (11.6-14.8) % Plt Count (150-400) X10^3/uL Neut % (Auto) (50-75) % Lymph % (Auto) (25-40) % [place] % (Auto) (3-14) % Eos % (Auto) (2-4) % Baso % (Auto) (0-2) % Neut # (Auto) (5464-8482) /uL Lymph # (Auto) (3646-5598) /uL [place] # (Auto) (0-900) /uL Eos # (Auto) (0-450) /uL Baso # (Auto) (0-100) /uL PT (10.1-12.7) SECONDS INR (0.9-1.3) APTT 39 H (26.4-36.2) SECONDS Sodium (137-145) mmol/L Potassium (3.4-5.1) mmol/L Chloride (98-107) mmol/L Carbon Dioxide (22-32) mmol/L BUN (7-17) mg/dL Creatinine (0.52-1.04) mg/dL Estimated GFR (>60) mL/min BUN/Creatinine Ratio (6-22) Glucose (70-100) mg/dL Calcium (8.4-10.2) mg/dL Magnesium (1.6-2.3) mg/dL Total Bilirubin (0.2-1.3) mg/dL AST (14-36) IU/L ALT (<35) IU/L Alkaline Phosphatase (38-126) U/L Total Creatine Kinase (30-135) U/L CK-MB (CK-2) CK-MB (CK-2) Rel Index Troponin I (0.01-0.034) ng/mL NT-Pro-B Natriuret Pep 268 H (<125) pg/mL Total Protein (6.3-8.2) g/dL Albumin (3.5-5.0) g/dL Globulin (1.7-4.1) g/dL Albumin/Globulin Ratio (1.0-2.8) Lipase (23-300) U/L Digoxin < 0.4 L (0.8-2.0) ng/mL SARS-CoV-2 (PCR) (Negative) 02/23/21 02/23/21 02/24/21 Range/Units 17:30 18:47 06:38 WBC (4.5-11.0) X10^3/uL RBC (4.0-5.2) X10^6/uL Hgb (12.0-16.0) g/dL Hct (36-46) % MCV (80-100) fL MCH (26-34) PG MCHC (30-36) % RDW (11.6-14.8) % Plt Count (150-400) X10^3/uL Neut % (Auto) (50-75) % Lymph % (Auto) (25-40) % [place] % (Auto) (3-14) % Eos % (Auto) (2-4) % Baso % (Auto) (0-2) % Neut # (Auto) (6325-5128) /uL Lymph # (Auto) (0835-6613) /uL [place] # (Auto) (0-900) /uL Eos # (Auto) (0-450) /uL Baso # (Auto) (0-100) /uL PT (10.1-12.7) SECONDS INR (0.9-1.3) APTT (26.4-36.2) SECONDS Sodium (137-145) mmol/L Potassium (3.4-5.1) mmol/L Chloride (98-107) mmol/L Carbon Dioxide (22-32) mmol/L BUN (7-17) mg/dL Creatinine (0.52-1.04) mg/dL Estimated GFR (>60) mL/min BUN/Creatinine Ratio (6-22) Glucose (70-100) mg/dL Calcium (8.4-10.2) mg/dL Magnesium (1.6-2.3) mg/dL Total Bilirubin (0.2-1.3) mg/dL AST (14-36) IU/L ALT (<35) IU/L Alkaline Phosphatase (38-126) U/L Total Creatine Kinase (30-135) U/L CK-MB (CK-2) CK-MB (CK-2) Rel Index Troponin I < 0.012 < 0.012 (0.01-0.034) ng/mL NT-Pro-B Natriuret Pep (<125) pg/mL Total Protein (6.3-8.2) g/dL Albumin (3.5-5.0) g/dL Globulin (1.7-4.1) g/dL Albumin/Globulin Ratio (1.0-2.8) Lipase (23-300) U/L Digoxin (0.8-2.0) ng/mL SARS-CoV-2 (PCR) Negative (Negative) Imaging Data echo: Radiologist's Impression: ADDENDUM? Version 2 ? [facility]? +---------+ : ? :? [address] ? : ? : : ? :? [place], [place] ? : ? : : ? :? [id number] ? : ? : : ? : ? Phone: [phone] ? : [phone]---------[phone]? [phone]? +---------+ ? Echocardiogram Report + + :Name: KASSANDRA CASILLAS I? Study Date: 02/24/2021 ? Height: 61 in? : :[facility] ? ? ReadingLocation: ? Weight: 300 lb : : ? Gender: Female ? BSA: 2.2 m2? ? : :: 1970? Age: 50 yrs? BP: 124/60 mmHg: :Reason For Study: CHEST PAIN ? : :Ordering Physician: JIGNESH,? : :MANJIT? Performed By: Gloria Rosa? : :Referring: MANJIT EGAN ? : + + Interpretation Summary The left ventricle is severely dilated. The ejection fraction is estimated to be 20-25%. There is severe global hypokinesis of the left ventricle. ? The right ventricle is not well visualized. ? There is a trivial pericardial effusion noted. ? Compared to the prior study dated 11/05/2020, no significant change. ? Procedure: ? A two-dimensional transthoracic echocardiogram with color flow and Doppler was performed in limited views only to assess Ejection Fraction and Wall Motion.. The study quality was technically adequate. Comparison is made with the echocardiogram of 11/05/2020. Left Ventricle: ? The left ventricle is severely dilated. There is normal left ventricular wall thickness. The ejection fraction is estimated to be 20-25%. There is severe global hypokinesis of the left ventricle. Right Ventricle: ? There is a pacemaker lead in the right ventricle. The right ventricle is not well visualized. Atria: ? The left atrial size is normal. The right atrium grossly appears normal in size. Mitral Valve: ? The mitral valve is normal. Aortic Valve: ? The aortic valve opens well. Tricuspid Valve: ? The tricuspid valve is not well visualized, but is grossly normal. Great Vessels: ? The IVC is of normal diameter and collapses greater than 50% with a sniff. This suggests a low right atrial pressure of 3 mm Hg. Pericardium/ Pleura ? There is a trivial pericardial effusion noted. There is no pleural effusion. ? MMode/2D Measurements & Calculations LVIDd: 6.3 cm? LA A2 area: 13.3 cm2 LVIDs: 5.6 cm? LA A4 area: 18.4 cm2 FS: 10.0 % ? LA length (vol): 5.6 cm IVSd: 0.81 cm? LA vol: 37.3 ml LVPWd: 0.69 cm ? LA vol index: 16.6 ml/m2 LV olsen. diameter/BSA (cm/m^2): 2.8 LV sys. diameter/BSA (cm/m^2): 2.5 ? IVC diam: 1.2 cm ? Doppler Measurements & Calculations MV E max satnam: 93.5 cm/sec MV A max satnam: 43.1 cm/sec MV E/A: 2.2 Med Peak E' Satnam: 11.3 cm/sec E/E' med: 8.3 Lat Peak E' Satnam: 7.2 cm/sec E/E' lat: 13.0 E/e' average: 10.6 MV dec time: 0.11 sec ? Reading Physician:09:40 AM ? Addendum Dictated By: Irene Quevedo D.O. Addendum Signed By: Addendum Cosigned By: DD/ TD/TT: 02/24/21 ? [facility]? +---------+ : ? :? [address] ? : ? : : ? :? [place], [place] ? : ? : : ? :? [id number] ? : ? : : ? : ? Phone: [phone] : ? : +---------[phone]? [phone]? +---------+ ? Echocardiogram Report + + :Name: KASSANDRA CASILLAS I? Study Date: 02/24/2021 ? Height: 61 in? : :[facility] ? ? ReadingLocation: ? Weight: 300 lb : : ? Gender: Female ? BSA: 2.2 m2? ? : :: 1970? Age: 50 yrs? BP: 124/60 mmHg: :Reason For Study: CHEST PAIN ? : :Ordering Physician: JIGNESH,? : :MANJIT? Performed By: Gloria Rosa? : :Referring: MANJIT EGAN ? : + + Interpretation Summary The left ventricle is severely dilated. The ejection fraction is estimated to be 20-25%. There is severe global hypokinesis of the left ventricle. ? The right ventricle is not well visualized. ? There is a trivial pericardial effusion noted. ? Procedure: ? A two-dimensional transthoracic echocardiogram with color flow and Doppler was performed in limited views only to assess Ejection Fraction and Wall Motion.. The study quality was technically adequate. Comparison is made with the echocardiogram of 11/05/2020. Left Ventricle: ? The left ventricle is severely dilated. There is normal left ventricular wall thickness. The ejection fraction is estimated to be 20-25%. There is severe global hypokinesis of the left ventricle. Right Ventricle: ? There is a pacemaker lead in the right ventricle. The right ventricle is not well visualized. Atria: ? The left atrial size is normal. The right atrium grossly appears normal in size. Mitral Valve: ? The mitral valve is normal. Aortic Valve: ? The aortic valve opens well. Tricuspid Valve: ? The tricuspid valve is not well visualized, but is grossly normal. Great Vessels: ? The IVC is of normal diameter and collapses greater than 50% with a sniff. This suggests a low right atrial pressure of 3 mm Hg. Pericardium/ Pleura ? There is a trivial pericardial effusion noted. There is no pleural effusion. ? MMode/2D Measurements & Calculations LVIDd: 6.3 cm? LA A2 area: 13.3 cm2 LVIDs: 5.6 cm? LA A4 area: 18.4 cm2 FS: 10.0 % ? LA length (vol): 5.6 cm IVSd: 0.81 cm? LA vol: 37.3 ml LVPWd: 0.69 cm ? LA vol index: 16.6 ml/m2 LV olsen. diameter/BSA (cm/m^2): 2.8 LV sys. diameter/BSA (cm/m^2): 2.5 ? IVC diam: 1.2 cm ? Doppler Measurements & Calculations MV E max satnam: 93.5 cm/sec MV A max satnam: 43.1 cm/sec MV E/A: 2.2 Med Peak E' Satnam: 11.3 cm/sec E/E' med: 8.3 Lat Peak E' Satnam: 7.2 cm/sec E/E' lat: 13.0 E/e' average: 10.6 MV dec time: 0.11 sec ? Reading Physician:09:22 AM ECG Data Interpretation: Sinus rhythm rate 108 VT interval 158 QRS 118 QTC [address] segment in lead 2 AVF and V4 through V6 leads [address] elevation in AVR, new from previous EKG in June of 2019 MDM Narrative Medical decision making narrative: Patient's EKG is concerning for digoxin effect vs ischemic, new from prior ekgs 0 Dr. Alonso Cardiology was able to look at patient's chart she was recommended to talk to [facility] about possible transplant. He was not concerned for an ischemic cardiomyopathy because she has been proven to have nonischemic cardiomyopathy many times. Recommend waiting for digoxin level. Patient continues to have chest discomfort despite nitro and morphine. 193- Dr. Quevedo, cardiology again consulted with digoxin level negative in persistent ST changes and consistent chest pain at this time 2- troponins does not recommend a nitro or heparin drip does recommend CT angio and definitely needs further workup. [facility] is on divert [facility] will call back in the morning Signed out to Dr. Jignesh egan: Received turned over. Reviewed patient's history and physical exam. Patient has remained stable overnight. Attempted to find placement for patient at a facility that has cardiology however we have been unsuccessful. The CT scan of the chest abdomen pelvis shows no acute findings. Patient was given evening doses of her medications. Care turned over to Dr. Omalley a changes shift to continue to follow up and disposition. 02/24/21 8am- Shahram-I have seen evaluated patient myself, she apparently slept without issue last night. This morning still having left-sided chest pain she has 3- troponins EKGs remained unchanged. sHe had limited echocardiogram this morning prior echo was done October 2020 normal valves and had EF of 20-22%. 9am- Dr. Trujillo, cardiology again contacted in regards to patient's continued chest pain and negative workup. Also updated her that an echocardiogram has been done and to please look out that. At this time she states a stress test would likely be next step. Patient is 16 thin line at [facility] no other beds available. Discussion with hospitalist he was in ED to see and evaluate patient. Agrees with hospitalization. <Manjit Egan, - Last Filed: 02/24/21 20:44> Lab Data Labs: Lab Results 02/23/21 02/23/21 02/23/21 Range/Units 16:25 16:25 16:25 WBC 8.0 (4.5-11.0) X10^3/uL RBC 5.64 H (4.0-5.2) X10^6/uL Hgb 14.6 (12.0-16.0) g/dL Hct 44.4 (36-46) % MCV 78.7 L (80-100) fL MCH 25.8 L (26-34) PG MCHC 32.8 (30-36) % RDW 15.8 H (11.6-14.8) % Plt Count 265 (150-400) X10^3/uL Neut % (Auto) 75.0 (50-75) % Lymph % (Auto) 17.4 L (25-40) % [place] % (Auto) 6.0 (3-14) % Eos % (Auto) 1.0 L (2-4) % Baso % (Auto) 0.6 (0-2) % Neut # (Auto) 6000 (1937-1270) /uL Lymph # (Auto) 1400 (7172-6264) /uL [place] # (Auto) 500 (0-900) /uL Eos # (Auto) 100 (0-450) /uL Baso # (Auto) 0 (0-100) /uL PT 12.4 (10.1-12.7) SECONDS INR 1.1 (0.9-1.3) APTT (26.4-36.2) SECONDS Sodium 135 L (137-145) mmol/L Potassium 3.0 L (3.4-5.1) mmol/L Chloride 93 L (98-107) mmol/L Carbon Dioxide 35 H (22-32) mmol/L BUN 20 H (7-17) mg/dL Creatinine 0.84 (0.52-1.04) mg/dL Estimated GFR > 60.0 (>60) mL/min BUN/Creatinine Ratio 23.8 H (6-22) Glucose 174 H (70-100) mg/dL Calcium 9.9 (8.4-10.2) mg/dL Magnesium 1.5 L (1.6-2.3) mg/dL Total Bilirubin 0.5 (0.2-1.3) mg/dL AST 32 (14-36) IU/L ALT 26 (<35) IU/L Alkaline Phosphatase 133 H (38-126) U/L Total Creatine Kinase 38 (30-135) U/L CK-MB (CK-2) TNP CK-MB (CK-2) Rel Index TNP Troponin I < 0.012 (0.01-0.034) ng/mL NT-Pro-B Natriuret Pep (<125) pg/mL Total Protein 8.9 H (6.3-8.2) g/dL Albumin 4.5 (3.5-5.0) g/dL Globulin 4.4 H (1.7-4.1) g/dL Albumin/Globulin Ratio 1.0 (1.0-2.8) Lipase 74 (23-300) U/L Digoxin (0.8-2.0) ng/mL SARS-CoV-2 (PCR) (Negative) 02/23/21 02/23/21 02/23/21 Range/Units 16:25 16:25 16:25 WBC (4.5-11.0) X10^3/uL RBC (4.0-5.2) X10^6/uL Hgb (12.0-16.0) g/dL Hct (36-46) % MCV (80-100) fL MCH (26-34) PG MCHC (30-36) % RDW (11.6-14.8) % Plt Count (150-400) X10^3/uL Neut % (Auto) (50-75) % Lymph % (Auto) (25-40) % [place] % (Auto) (3-14) % Eos % (Auto) (2-4) % Baso % (Auto) (0-2) % Neut # (Auto) (1044-9623) /uL Lymph # (Auto) (1319-2881) /uL [place] # (Auto) (0-900) /uL Eos # (Auto) (0-450) /uL Baso # (Auto) (0-100) /uL PT (10.1-12.7) SECONDS INR (0.9-1.3) APTT 39 H (26.4-36.2) SECONDS Sodium (137-145) mmol/L Potassium (3.4-5.1) mmol/L Chloride (98-107) mmol/L Carbon Dioxide (22-32) mmol/L BUN (7-17) mg/dL Creatinine (0.52-1.04) mg/dL Estimated GFR (>60) mL/min BUN/Creatinine Ratio (6-22) Glucose (70-100) mg/dL Calcium (8.4-10.2) mg/dL Magnesium (1.6-2.3) mg/dL Total Bilirubin (0.2-1.3) mg/dL AST (14-36) IU/L ALT (<35) IU/L Alkaline Phosphatase (38-126) U/L Total Creatine Kinase (30-135) U/L CK-MB (CK-2) CK-MB (CK-2) Rel Index Troponin I (0.01-0.034) ng/mL NT-Pro-B Natriuret Pep 268 H (<125) pg/mL Total Protein (6.3-8.2) g/dL Albumin (3.5-5.0) g/dL Globulin (1.7-4.1) g/dL Albumin/Globulin Ratio (1.0-2.8) Lipase (23-300) U/L Digoxin < 0.4 L (0.8-2.0) ng/mL SARS-CoV-2 (PCR) (Negative) 02/23/21 02/23/21 02/24/21 Range/Units 17:30 18:47 06:38 WBC (4.5-11.0) X10^3/uL RBC (4.0-5.2) X10^6/uL Hgb (12.0-16.0) g/dL Hct (36-46) % MCV (80-100) fL MCH (26-34) PG MCHC (30-36) % RDW (11.6-14.8) % Plt Count (150-400) X10^3/uL Neut % (Auto) (50-75) % Lymph % (Auto) (25-40) % [place] % (Auto) (3-14) % Eos % (Auto) (2-4) % Baso % (Auto) (0-2) % Neut # (Auto) (7614-5288) /uL Lymph # (Auto) (5850-7389) /uL [place] # (Auto) (0-900) /uL Eos # (Auto) (0-450) /uL Baso # (Auto) (0-100) /uL PT (10.1-12.7) SECONDS INR (0.9-1.3) APTT (26.4-36.2) SECONDS Sodium (137-145) mmol/L Potassium (3.4-5.1) mmol/L Chloride (98-107) mmol/L Carbon Dioxide (22-32) mmol/L BUN (7-17) mg/dL Creatinine (0.52-1.04) mg/dL Estimated GFR (>60) mL/min BUN/Creatinine Ratio (6-22) Glucose (70-100) mg/dL Calcium (8.4-10.2) mg/dL Magnesium (1.6-2.3) mg/dL Total Bilirubin (0.2-1.3) mg/dL AST (14-36) IU/L ALT (<35) IU/L Alkaline Phosphatase (38-126) U/L Total Creatine Kinase (30-135) U/L CK-MB (CK-2) CK-MB (CK-2) Rel Index Troponin I < 0.012 < 0.012 (0.01-0.034) ng/mL NT-Pro-B Natriuret Pep (<125) pg/mL Total Protein (6.3-8.2) g/dL Albumin (3.5-5.0) g/dL Globulin (1.7-4.1) g/dL Albumin/Globulin Ratio (1.0-2.8) Lipase (23-300) U/L Digoxin (0.8-2.0) ng/mL SARS-CoV-2 (PCR) Negative (Negative) Imaging Data CT chest/abd/pelvis: Radiologist's Impression: [place] [address] CT Scan Report Signed Patient: Kassandra Casillas MR#: [id number] : 1970 Acct:[id number] Age/Sex: 50 / F Date of Service: 02/23/21 Loc: ED Accession Number: [id number] ?? Procedure: CT angio chest abdomen pelvis Ordering Provider: Casi Omalley D.O. PROCEDURE:? CT ANGIO CHEST ABDOMEN PELVIS ? INDICATIONS:? chest pain ? TECHNIQUE:? Precontrast 5 mm thick sections acquired from the lung apices to the iliac crests.? After the administration of intravenous contrast, 2.5 mm thick sections again acquired from the lung apices to the iliac crests.? Maximum intensity projection (MIP) oblique sagittal and coronal reformats were then acquired.? For radiation dose reduction, the following was used:? automated exposure control.? ? COMPARISON:? [facility], CR, XR CHEST 1V, 02/23/2021, 16:33.? [facility], CT, CT ABDOMEN PELVIS WO CON, 02/06/2020, 11:19. ? FINDINGS:? Image quality:? Excellent.? ? AORTA:? No acute aortic syndrome.? No aortic dissection.? No aneurysm.? ? CHEST:? Lungs and pleura:? No acute airspace opacities.? No pleural effusions or pneumothorax.? Central and peripheral airways are patent and normal in caliber.? ? Mediastinum:? Left pacemaker with right ventricular lead.? Heart size is normal.? No pericardial effusion.? No mediastinal or hilar adenopathy by size criteria.? Central pulmonary arteries are normal in size.? Esophagus is normal in caliber.? No hiatal hernias.? ? Bones and chest wall:? No axillary adenopathy by size criteria.? Thyroid gland is unremarkable .? No suspicious bony lesions.? No vertebral body compression fractures.? ? ? ABDOMEN:? Vasculature:? Celiac trunk and mesenteric arteries are patent.? Right hepatic artery is replaced to the SMA.? Renal arteries are also patent.? ? Solid organs:? Liver is normal in size and enhancement.? Gallbladder is absent.? Biliary system is non dilated.? Pancreas enhances normally.? No peripancreatic fluid collection.? Spleen is normal in size and enhancement.? No adrenal nodules.? Both kidneys are normal in size and enhancement, without hydronephrosis.? ? Peritoneum and bowel:? No free fluid or air.? Bowel loops are normal in caliber and wall thickness.? Diverticulosis.? The appendix is mildly prominent measuring at 0.8 cm in diameter, (6/130), unchanged.? There is air within the lumen of the appendix. ? Nodes and vessels:? No retroperitoneal or mesenteric adenopathy by size criteria.? Inferior vena cava is normal in morphology.? ? Miscellaneous:? No ventral hernias.? Midline lower abdominal subcutaneous fluid collection measuring 5.2 cm, (6/153), previously 9.5 cm. There is encapsulation. ? ? PELVIS:? Genitourinary:? Bladder wall thickness is normal.? Anteverted uterus.? ? Miscellaneous:? No inguinal hernias or adenopathy.? No ventral hernias.? ? Bones:? No suspicious bony lesions.? No vertebral body compression fractures.? ? ? IMPRESSION:? 1. No aortic dissection.? No acute aortic syndrome.? No aneurysm. ? 2. Lungs are clear. ? 3. Left pacemaker.? No pleural effusion. ? 4. Prominent appendix is unchanged.? Diverticulosis.? No free fluid. ? 5. In capsulated fluid collection in the lower subcutaneous abdominal wall is decreased in size compared to January 2020. ? ? ? Dictated by: Evin Casas M.D. on 02/23/2021 at 20:25 ? ? Approved by: Evin Casas M.D. on 02/23/2021 at 20:33?? MDM Narrative Medical decision making narrative: Patient's EKG is concerning for digoxin a arrhythmia. 1699 Dr. Alonso Cardiology was able to look at patient's chart she was recommended to talk to [facility] about possible transplant. He was not concerned for an ischemic cardiomyopathy because she has been proven to have nonischemic cardiomyopathy many times. Recommend waiting for digoxin level. Patient continues to have chest discomfort despite nitro and morphine. 1929- Dr. Quevedo, cardiology again consulted with digoxin level negative in persistent ST changes and consistent chest pain at this time 2- troponins does not recommend a nitro or heparin drip does recommend CT angio and definitely needs further workup. [facility] is on divert [place] will call back in the morning Signed out to Dr. Jignesh egan: Received turned over. Reviewed patient's history and physical exam. Patient has remained stable overnight. Attempted to find placement for patient at a facility that has cardiology however we have been unsuccessful. The CT scan of the chest abdomen pelvis shows no acute findings. Patient was given evening doses of her medications. Care turned over to Dr. Shahram lemons changes shift to continue to follow up and disposition. Discharge Plan Departure Patient Disposition: Admitted as Observation Clinical Impression: Chest pain Admit Date/Time: 02/24/21 11:06 Admit Provider: Bill Constantino
[2021-02-23 16:46] LABS: PTT Partial Thromboplastin Tim 39 SECONDS (26.4-36.2)
[2021-02-23 16:48] LABS: Alanine Aminotransferase 26 IU/L (<35); Albumin 4.5 g/dL (3.5-5.0); Alkaline Phosphatase 133 U/L (38-126); Aspartate Aminotransferase 32 IU/L (14-36); BUN Creatinine Ratio 23.8 (6-22); Bilirubin Total 0.5 mg/dL (0.2-1.3); Blood Urea Nitrogen 20 mg/dL (7-17); Calcium 9.9 mg/dL (8.4-10.2); Carbon Dioxide 35 mmol/L (22-32); Chloride 93 mmol/L (98-107); Creatine Kinase 38 U/L (30-135); Estimated Glomerular Filt Rate > 60.0 mL/min (>60); Globulin 4.4 g/dL (1.7-4.1); Glucose 174 mg/dL (70-100); HEMOLYSIS < 15 (0-50); Lipase 74 U/L (23-300); Magnesium 1.5 mg/dL (1.6-2.3); Sodium 135 mmol/L (137-145); Total Protein 8.9 g/dL (6.3-8.2)
[2021-02-23 16:59] LABS: Troponin I < 0.012 ng/mL (0.01-0.034)
[2021-02-23] MEDS: ASPIRIN 81 MG CHEW TAB 324 MG PO (17:03)
[2021-02-23 17:21] LABS: NT-proBNP (BNP-Adult 18+) 268 pg/mL (<125)
--- NOTE | 2021-02-23 17:25 | PC.NURSE ---
pt states the pain goes across the chest and across the back as well.
[2021-02-23 17:28] LABS: Digoxin < 0.4 ng/mL (0.8-2.0)
[2021-02-23 18:03] LABS: COVID19 - ADMIT (NP swab/PCR) Negative (Negative)
[2021-02-23] MEDS: NITROGLYCERIN 0.4 MG SL TAB SL (18:24)
[2021-02-23 19:19] LABS: Troponin I < 0.012 ng/mL (0.01-0.034)
--- NOTE | 2021-02-23 19:25 | PC.NURSE ---
pt denies relief from nitro dose. reported to dr. solomon.
[2021-02-23] MEDS: MORPHINE 2 MG/ML INJ IV (19:30)
--- NOTE | 2021-02-23 19:30 | DI.CT.S_ITS ---
PROCEDURE: CT ANGIO CHEST ABDOMEN PELVIS INDICATIONS: chest pain TECHNIQUE: Precontrast 5 mm thick sections acquired from the lung apices to the iliac crests. After the administration of intravenous contrast, 2.5 mm thick sections again acquired from the lung apices to the iliac crests. Maximum intensity projection (MIP) oblique sagittal and coronal reformats were then acquired. For radiation dose reduction, the following was used: automated exposure control. COMPARISON: [facility], CR, XR CHEST 1V, 02/23/2021, 16:33. [facility], CT, CT ABDOMEN PELVIS WO CON, 02/06/2020, 11:19. FINDINGS: Image quality: Excellent. AORTA: No acute aortic syndrome. No aortic dissection. No aneurysm. CHEST: Lungs and pleura: No acute airspace opacities. No pleural effusions or pneumothorax. Central and peripheral airways are patent and normal in caliber. Mediastinum: Left pacemaker with right ventricular lead. Heart size is normal. No pericardial effusion. No mediastinal or hilar adenopathy by size criteria. Central pulmonary arteries are normal in size. Esophagus is normal in caliber. No hiatal hernias. Bones and chest wall: No axillary adenopathy by size criteria. Thyroid gland is unremarkable . No suspicious bony lesions. No vertebral body compression fractures. ABDOMEN: Vasculature: Celiac trunk and mesenteric arteries are patent. Right hepatic artery is replaced to the SMA. Renal arteries are also patent. Solid organs: Liver is normal in size and enhancement. Gallbladder is absent. Biliary system is non dilated. Pancreas enhances normally. No peripancreatic fluid collection. Spleen is normal in size and enhancement. No adrenal nodules. Both kidneys are normal in size and enhancement, without hydronephrosis. Peritoneum and bowel: No free fluid or air. Bowel loops are normal in caliber and wall thickness. Diverticulosis. The appendix is mildly prominent measuring at 0.8 cm in diameter, (6/130), unchanged. There is air within the lumen of the appendix. Nodes and vessels: No retroperitoneal or mesenteric adenopathy by size criteria. Inferior vena cava is normal in morphology. Miscellaneous: No ventral hernias. Midline lower abdominal subcutaneous fluid collection measuring 5.2 cm, (6/153), previously 9.5 cm. There is encapsulation. PELVIS: Genitourinary: Bladder wall thickness is normal. Anteverted uterus. Miscellaneous: No inguinal hernias or adenopathy. No ventral hernias. Bones: No suspicious bony lesions. No vertebral body compression fractures. IMPRESSION: 1. No aortic dissection. No acute aortic syndrome. No aneurysm. 2. Lungs are clear. 3. Left pacemaker. No pleural effusion. 4. Prominent appendix is unchanged. Diverticulosis. No free fluid. 5. In capsulated fluid collection in the lower subcutaneous abdominal wall is decreased in size compared to January 2020. Dictated by: vEin Casas M.D. on 02/23/2021 at 20:25 Approved by: Evin Casas M.D. on 02/23/2021 at 20:33
[2021-02-23] MEDS: POTASSIUM CHLORIDE 20 MEQ TAB 40 MEQ PO (19:31)
[2021-02-23] MEDS: GABAPENTIN 300 MG CAPSULE PO (23:31)
[2021-02-23] MEDS: hydrOXYzine pamoate 25 MG CAPSULE PO (23:32)
[2021-02-23] MEDS: AMITRIPTYLINE 25 MG TABLET 100 MG PO (23:32)
[2021-02-23] MEDS: AMITRIPTYLINE 10 MG TABLET 50 MG PO (23:32)
[2021-02-24] VITALS (63 sets, daily range): BP systolic 90–126; BP diastolic 45–81; PULSE 63–132; RESP 16–24; TEMP 35.9–36.7; O2SAT 92–99; BMI 56.7
--- NOTE | 2021-02-24 04:52 | DI.ECHO.S_ITS ---
[facility]---------+ [facility] +---------+ : : [address] : : : : [id number] : : : : Phone: [phone]+ Echocardiogram Report + + :Name: KASSANDRA BARNES I Study Date: 02/24/2021 Height: 61 in : :[facility] ReadingLocation: Weight: 300 lb : : Gender: Female BSA: 2.2 m2 : :: 1970 Age: 50 yrs BP: 124/60 mmHg: :Reason For Study: CHEST PAIN : :Ordering Physician: MARY, : :MANJIT Performed By: Gloria Rosa : :Referring: MANJIT HERNANDEZ : + + Interpretation Summary The left ventricle is severely dilated. The ejection fraction is estimated to be 20-25%. There is severe global hypokinesis of the left ventricle. The right ventricle is not well visualized. There is a trivial pericardial effusion noted. Procedure: A two-dimensional transthoracic echocardiogram with color flow and Doppler was performed in limited views only to assess Ejection Fraction and Wall Motion.. The study quality was technically adequate. Comparison is made with the echocardiogram of 11/05/2020. Left Ventricle: The left ventricle is severely dilated. There is normal left ventricular wall thickness. The ejection fraction is estimated to be 20-25%. There is severe global hypokinesis of the left ventricle. Right Ventricle: There is a pacemaker lead in the right ventricle. The right ventricle is not well visualized. Atria: The left atrial size is normal. The right atrium grossly appears normal in size. Mitral Valve: The mitral valve is normal. Aortic Valve: The aortic valve opens well. Tricuspid Valve: The tricuspid valve is not well visualized, but is grossly normal. Great Vessels: The IVC is of normal diameter and collapses greater than 50% with a sniff. This suggests a low right atrial pressure of 3 mm Hg. Pericardium/ Pleura There is a trivial pericardial effusion noted. There is no pleural effusion. MMode/2D Measurements & Calculations LVIDd: 6.3 cm LA A2 area: 13.3 cm2 LVIDs: 5.6 cm LA A4 area: 18.4 cm2 FS: 10.0 % LA length (vol): 5.6 cm IVSd: 0.81 cm LA vol: 37.3 ml LVPWd: 0.69 cm LA vol index: 16.6 ml/m2 LV olsen. diameter/BSA (cm/m^2): 2.8 LV sys. diameter/BSA (cm/m^2): 2.5 IVC diam: 1.2 cm Doppler Measurements & Calculations MV E max satnam: 93.5 cm/sec MV A max satnam: 43.1 cm/sec MV E/A: 2.2 Med Peak E' Satnam: 11.3 cm/sec E/E' med: 8.3 Lat Peak E' Satnam: 7.2 cm/sec E/E' lat: 13.0 E/e' average: 10.6 MV dec time: 0.11 sec Reading Physician:09:22 AM
[2021-02-24 07:16] LABS: Troponin I < 0.012 ng/mL (0.01-0.034)
[2021-02-24] MEDS: KETOROLAC 30 MG/ML VIAL 15 MG IV (07:29)
[2021-02-24] MEDS: MORPHINE 2 MG/ML INJ IV (09:08)
[2021-02-24] MEDS: GABAPENTIN 300 MG CAPSULE PO ×3 (11:19→22:08)
[2021-02-24] MEDS: CYCLOBENZAPRINE 10 MG TABLET PO ×2 (11:19→14:57)
[2021-02-24] MEDS: hydrOXYzine pamoate 25 MG CAPSULE 50 MG PO (11:20)
[2021-02-24] MEDS: lisinopriL 5 MG TABLET 2.5 MG PO ×2 (11:21→14:56)
[2021-02-24] MEDS: ATORVASTATIN 20 MG TABLET 40 MG PO (11:23)
[2021-02-24] MEDS: OXYCODONE IR 5 MG TABLET PO ×2 (11:24→22:11)
[2021-02-24] MEDS: ONDANSETRON 4 MG/2 ML INJ IV (11:26)
--- NOTE | 2021-02-24 12:56 | PM.HP.1 ---
History of Present Illness History of Present Illness Date Patient Seen: 02/24/21 Time Patient Seen: 11:00 Chief complaint: Chest Pain, Pace Maker Narrative: Ms. Casillas is a 50W with PMH nonischemic cardiomyopathy, CHFrEF with EF 20-25%, s/p pacemaker who presents to the hospital with chest pain and shortness of breath. She notes that she has had three days of chest pain and back pain that are in a band across the center of her chest and across her back. She says the pain is sharp. It is associated with shortness of breath. It does not seem to be worse with exertion. She has no cough, or reflux symptoms. She has known nonischemic cardiomyopathy, she is considering possible cardiac transplant. She is not sure why she has cardiomyopathy. She can not recall her last stress test or angiogram In the ED, workup was done, vitals notable for tachycardia and tachypnea. Labs notable for WBC 8.0, hgb 14.6, K 3.0, creatinine 0.84, trop negative x3, BNP 268, digoxin less than assay, COVID negative. EKG with downward ST segments in inferior leads and lateral leads, with ST elevation in AVR. Cardiology was consulted who did not think patient was having acute ACS. This was confirmed with three negative troponins. Nitro did not help chest pain. CTA of the chest showed no acute process. ECHO showed severely dilated LV, EF 20-25%, severe global hypokinesis of the left ventricle, trivial pericardial effusion that was not changed from prior. She was admitted for further treatment. Family history: father with lung cancer Patient History Medical History Dizziness History of congestive heart failure Hypertension Pacemaker Seasonal allergies Surgical History History of laparoscopic cholecystectomy Family & Social History Social History: household members significant other,children Prior Living Arrangements Apartment/Condo Safety & Behavioral: Feels Safe in Current Yes Environment Been Physically Hurt or No Threatened By a Person Suicidal Ideation Description None Suicide Plan Description No Plan Tobacco & Substance use: Smoking Status Never smoker alcohol intake former alcohol intake frequency holiday/special occasion Substance Use Type does not use Meds Home Medications and Allergies Home Medications Medication Instructions Recorded Confirmed Type cyclobenzaprine 10 mg tablet 10 mg PO TID PRN #14 tab 02/24/19 02/24/21 Rx gabapentin 300 mg capsule 300 mg PO TID 11/20/19 02/24/21 History amitriptyline 50 mg tablet 100 mg PO DAILY 02/24/21 02/24/21 History digoxin 125 mcg (0.125 mg) tablet 125 mcg PO DAILY 02/24/21 02/24/21 History fluticasone propionate 50 1 spray INTRANASAL DAILY 02/24/21 02/24/21 History mcg/actuation nasal spray,suspension hydroxyzine HCl 25 mg tablet 25 mg PO TID 02/24/21 02/24/21 History lisinopril 2.5 mg tablet 2.5 mg PO TID 02/24/21 02/24/21 History metoprolol succinate 50 mg 50 mg PO DAILY 02/24/21 02/24/21 History tablet,extended release 24 hr naproxen 500 mg tablet 500 mg PO BID 02/24/21 02/24/21 History potassium chloride 20 mEq 20 meq PO QWEEK 02/24/21 02/24/21 History tablet,extended release sertraline 150 mg capsule 150 mg PO DAILY 02/24/21 02/24/21 History torsemide 20 mg tablet 20 mg PO BID 02/24/21 02/24/21 History Allergies Allergy/AdvReac Type Severity Reaction Status Date / Time No Known Drug Allergies Allergy Verified 07/25/20 12:56 Review of Systems Review of Systems Narrative: 14 systems reviewed and negative aside from what is noted in HPI Exam Vital Signs (past 8 hours): - 02/24/21 05:00 02/24/21 05:15 02/24/21 05:30 Pulse Rate 103 H 102 H 101 H Respiratory Rate 20 16 20 Blood Pressure Pulse Oximetry 93 94 95 02/24/21 05:45 02/24/21 06:00 02/24/21 06:15 Pulse Rate 101 H 103 H 101 H Respiratory Rate 18 18 20 Blood Pressure Pulse Oximetry 94 94 95 02/24/21 06:30 02/24/21 06:45 02/24/21 07:01 Pulse Rate 102 H 108 H 102 H Respiratory Rate 18 21 17 Blood Pressure Pulse Oximetry 95 95 94 02/24/21 07:19 02/24/21 07:20 02/24/21 07:30 Pulse Rate 117 H 113 H 101 H Respiratory Rate 19 21 Blood Pressure 124/60 Pulse Oximetry 95 99 97 02/24/21 07:45 02/24/21 08:00 02/24/21 08:15 Pulse Rate 101 H 115 H 110 H Respiratory Rate 19 19 20 Blood Pressure Pulse Oximetry 95 02/24/21 08:30 02/24/21 08:45 02/24/21 09:00 Pulse Rate 106 H 106 H 105 H Respiratory Rate 18 17 18 Blood Pressure Pulse Oximetry 02/24/21 09:13 02/24/21 09:15 02/24/21 09:30 Pulse Rate 108 H 105 H 106 H Respiratory Rate 19 17 18 Blood Pressure 122/62 96/75 Pulse Oximetry 93 94 93 02/24/21 09:45 02/24/21 10:00 02/24/21 10:15 Pulse Rate 106 H 109 H 104 H Respiratory Rate 17 19 Blood Pressure 122/59 L Pulse Oximetry 94 95 95 02/24/21 10:30 02/24/21 10:45 02/24/21 11:00 Pulse Rate 103 H 105 H 102 H Respiratory Rate 19 19 18 Blood Pressure 121/81 106/74 Pulse Oximetry 95 95 95 02/24/21 11:15 02/24/21 11:21 02/24/21 11:30 Pulse Rate 106 H 108 H 115 H Respiratory Rate 18 Blood Pressure 106/74 Pulse Oximetry 94 95 Oxygen Delivery Method Room Air Narrative Exam Narrative: GEN: no acute distress HEENT: moist mucous membranes NECK: trachea midline, no JVD CHEST: reproducible chest pain with palpation BACK: reproducible pain with palpation CV: tachycardic, no murmurs PULM: clear bilaterally, no wheezes, rhonchi, rales ABD: soft, nontender, nondistended, no organomegaly, normal bowel sounds EXT: warm and well perfused, no edema NEURO: awake and alert, no focal deficits Objective Labs Result Diagrams: 02/23/21 16:25 02/23/21 16:25 Labs: Laboratory Results - last 24 hr 02/23/21 02/23/21 02/23/21 16:25 16:25 16:25 WBC 8.0 RBC 5.64 H Hgb 14.6 Hct 44.4 MCV 78.7 L MCH 25.8 L MCHC 32.8 RDW 15.8 H Plt Count 265 Neut % (Auto) 75.0 Lymph % (Auto) 17.4 L [place] % (Auto) 6.0 Eos % (Auto) 1.0 L Baso % (Auto) 0.6 Neut # (Auto) 6000 Lymph # (Auto) 1400 [place] # (Auto) 500 Eos # (Auto) 100 Baso # (Auto) 0 PT 12.4 INR 1.1 APTT Sodium 135 L Potassium 3.0 L Chloride 93 L Carbon Dioxide 35 H BUN 20 H Creatinine 0.84 Estimated GFR > 60.0 BUN/Creatinine Ratio 23.8 H Glucose 174 H Calcium 9.9 Magnesium 1.5 L Total Bilirubin 0.5 AST 32 ALT 26 Alkaline Phosphatase 133 H Total Creatine Kinase 38 CK-MB (CK-2) TNP CK-MB (CK-2) Rel Index TNP Troponin I < 0.012 NT-Pro-B Natriuret Pep Total Protein 8.9 H Albumin 4.5 Globulin 4.4 H Albumin/Globulin Ratio 1.0 Lipase 74 Digoxin SARS-CoV-2 (PCR) 02/23/21 02/23/21 02/23/21 16:25 16:25 16:25 WBC RBC Hgb Hct MCV MCH MCHC RDW Plt Count Neut % (Auto) Lymph % (Auto) [place] % (Auto) Eos % (Auto) Baso % (Auto) Neut # (Auto) Lymph # (Auto) [place] # (Auto) Eos # (Auto) Baso # (Auto) PT INR APTT 39 H Sodium Potassium Chloride Carbon Dioxide BUN Creatinine Estimated GFR BUN/Creatinine Ratio Glucose Calcium Magnesium Total Bilirubin AST ALT Alkaline Phosphatase Total Creatine Kinase CK-MB (CK-2) CK-MB (CK-2) Rel Index Troponin I NT-Pro-B Natriuret Pep 268 H Total Protein Albumin Globulin Albumin/Globulin Ratio Lipase Digoxin < 0.4 L SARS-CoV-2 (PCR) 02/23/21 02/23/21 02/24/21 17:30 18:47 06:38 WBC RBC Hgb Hct MCV MCH MCHC RDW Plt Count Neut % (Auto) Lymph % (Auto) [place] % (Auto) Eos % (Auto) Baso % (Auto) Neut # (Auto) Lymph # (Auto) [place] # (Auto) Eos # (Auto) Baso # (Auto) PT INR APTT Sodium Potassium Chloride Carbon Dioxide BUN Creatinine Estimated GFR BUN/Creatinine Ratio Glucose Calcium Magnesium Total Bilirubin AST ALT Alkaline Phosphatase Total Creatine Kinase CK-MB (CK-2) CK-MB (CK-2) Rel Index Troponin I < 0.012 < 0.012 NT-Pro-B Natriuret Pep Total Protein Albumin Globulin Albumin/Globulin Ratio Lipase Digoxin SARS-CoV-2 (PCR) Negative Assessment & Plan Assessment & Plan narrative: 1. Chest pain -has atypical and typical findings -has EKG changes, associated shortness of breath -however chest pain is reproducible, has history of NICM, negative troponins and not relieved with nitro -continue aspirin and statin -continue pain meds for possible MSK pain -ECHO unchanged from prior -CTA showed no acute process -plan for stress test to rule out cardiac cause of chest pain -consider possible pericarditis as cause, ordered for nsaids 2. Nonischemic cardiomyopathy with CHFrEF, s/p PPM -continume metoprolol, digoxin, lisinopril 3. Hypokalemia, hypomagnesemia -replete as needed, likely secondary to diuretic 4. Depression, anxiety -continue amitryptiline, sertraline 5. Morbid obesity -BMI 56.7 -follow up with PCP as outpatient CODE: Full Proxy: Ines Méndez, friend I have utilized all available resources to reconcile the patient's home medications. Time Spent With Patient Critical Care time: I spent a total of [] minutes of critical care time on this patient's care today; this time is exclusive of procedural time. Quality MIPS - Admit I confirm the patient?s Advance Care Plan is present, Code status is documented, Surrogate decision maker is in patient?s record [If Yes, STOP here]: Yes
[2021-02-24] MEDS: ASPIRIN EC 81 MG TABLET PO (13:24)
[2021-02-24 13:52] LABS: BUN Creatinine Ratio 24.7 (6-22); Blood Urea Nitrogen 21 mg/dL (7-17); Calcium 10.3 mg/dL (8.4-10.2); Carbon Dioxide 33 mmol/L (22-32); Chloride 93 mmol/L (98-107); Estimated Glomerular Filt Rate > 60.0 mL/min (>60); Glucose 147 mg/dL (70-100); HEMOLYSIS < 15 (0-50); Magnesium 1.7 mg/dL (1.6-2.3); Potassium 3.4 mmol/L (3.4-5.1); Sodium 135 mmol/L (137-145)
[2021-02-24] MEDS: METOPROLOL ER 50 MG TABLET PO (14:57)
[2021-02-24] MEDS: MAGNESIUM SULFATE 2 GM/50 ML PIGGYBACK IV (15:00)
[2021-02-24] MEDS: POTASSIUM CHLORIDE 20 MEQ TAB 40 MEQ PO (15:01)
[2021-02-24] MEDS: hydrOXYzine pamoate 25 MG CAPSULE PO ×2 (15:20→22:08)
[2021-02-24] MEDS: DIGOXIN 0.125 MG TABLET 0.25 MG PO (17:36)
--- NOTE | 2021-02-24 18:11 | PC.NURSE ---
PT ADMITTED FROM ED TO ROOM 220- SHE REPORTS NO FURTHER CHEST DISCOMFORT BUT DOES ENDORSE LIGHTHEADEDNESS VSS, PT HAS PACEMAKER BUT NO PACED BEATS NOTED- LUNGS CLEAR AND DIM AT BASES ROOM AIR SPO2 MID-HIGH 90'S DENIES SOB- TAKING DIET WELL AND PLANS FOR NPO AFTER MIDNIGHT FOR POTENTIAL STRESS TEST IN AM- DID RECEIVE 2 GM MAGNESIUM AND 40 MEQ KCL FOR ELECTROLYTE REPLACEMENT- TELE INITIALLY >130 BPM AFTER PO METOPROLOL HR DECREASED TO 92BPM- UP AND ABOUT AD KATE IN ROOM
--- NOTE | 2021-02-24 18:28 | PC.NURSE ---
Addendum entered by Tish Jeff R.N. 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
[2021-02-24] MEDS: ENOXAPARIN 40 MG/0.4 ML SYRINGE SUBCUT (22:08)
[2021-02-24] MEDS: IBUPROFEN 600 MG TABLET PO (22:11)
[2021-02-24 22:54] LABS: Creatine Kinase 38 U/L (30-135)
[2021-02-24 22:55] LABS: BUN Creatinine Ratio 28.6 (6-22); Blood Urea Nitrogen 24 mg/dL (7-17); Calcium 9.8 mg/dL (8.4-10.2); Carbon Dioxide 32 mmol/L (22-32); Chloride 96 mmol/L (98-107); Estimated Glomerular Filt Rate > 60.0 mL/min (>60); Glucose 162 mg/dL (70-100); HEMOLYSIS < 15 (0-50); Magnesium 2.1 mg/dL (1.6-2.3); Potassium 4.3 mmol/L (3.4-5.1); Sodium 131 mmol/L (137-145)
--- NOTE | 2021-02-24 22:59 | PM.EVENT ---
Event Note Date Patient Seen: 02/24/21 Time Patient Seen: 22:00 Event Note: Patient seen and evaluated, continued band-like chest pain, notified of changes on telemetry. EKG ordered and saw more definative ST depressions in V5 and V6 compared to prior. Discussed w/Dr. Alonso, recommend addition of colchicine 0.6 mg po bid which was started tonight. She was also administered a 500 ml bolus due to hypotension, currently bp is 90/50. She was awake, oriented and cheerful when I saw her, did not seem to be in distress. Continue to monitor.
[2021-02-24 23:07] LABS: Troponin I < 0.012 ng/mL (0.01-0.034)
[2021-02-24] MEDS: COLCHICINE 0.6 MG TABLET PO (23:30)
[2021-02-25] VITALS (9 sets, daily range): BP systolic 94–117; BP diastolic 37–58; PULSE 71–88; RESP 18; TEMP 36.3–36.8; O2SAT 91–96
[2021-02-25 05:49] LABS: Add Manual Diff / Slide Review NO; Basophils Absolute Auto 100 /uL (0-100); Basophils Percent Auto 0.8 % (0-2); Eosinophils Absolute Auto 200 /uL (0-450); Eosinophils Percent Auto 2.5 % (2-4); Hematocrit 38.5 % (36-46); Hemoglobin 12.5 g/dL (12.0-16.0); Lymphocytes Absolute Auto 1900 /uL (1100-4500); Lymphocytes Percent Auto 28.6 % (25-40); Mean Corpuscular HGB Conc 32.5 % (30-36); Mean Corpuscular Hemoglobin 25.6 PG (26-34); Mean Corpuscular Volume 78.8 fL (80-100); Monocytes Absolute Auto 600 /uL (0-900); Monocytes Percent Auto 8.7 % (3-14); Neutrophils Absolute Auto 3900 /uL (1500-7000); Neutrophils Percent Auto 59.4 % (50-75); Platelet Count 231 X10^3/uL (150-400); Red Blood Cell Count 4.88 X10^6/uL (4.0-5.2); Red Cell Distribution Width 16.1 % (11.6-14.8); White Blood Cell Count 6.7 X10^3/uL (4.5-11.0)
[2021-02-25] MEDS: ACETAMINOPHEN 325 MG TABLET 650 MG PO (05:52)
[2021-02-25] MEDS: IBUPROFEN 600 MG TABLET PO (05:52)
[2021-02-25] MEDS: OXYCODONE IR 5 MG TABLET PO (05:53)
[2021-02-25 06:18] LABS: Alanine Aminotransferase 22 IU/L (<35); Albumin 3.7 g/dL (3.5-5.0); Albumin Globulin Ratio 1.1 (1.0-2.8); Alkaline Phosphatase 116 U/L (38-126); Aspartate Aminotransferase 26 IU/L (14-36); BUN Creatinine Ratio 26.3 (6-22); Bilirubin Total 0.4 mg/dL (0.2-1.3); Blood Urea Nitrogen 21 mg/dL (7-17); Calcium 9.5 mg/dL (8.4-10.2); Carbon Dioxide 32 mmol/L (22-32); Chloride 100 mmol/L (98-107); Estimated Glomerular Filt Rate > 60.0 mL/min (>60); Globulin 3.5 g/dL (1.7-4.1); Glucose 116 mg/dL (70-100); HEMOLYSIS < 15 (0-50); Potassium 3.7 mmol/L (3.4-5.1); Sodium 134 mmol/L (137-145); Total Protein 7.2 g/dL (6.3-8.2)
--- NOTE | 2021-02-25 08:13 | P.DS_ITS ---
History of Present Illness History of Present Illness Chief complaint: Chest Pain, Pace Maker Narrative: Ms. Casillas is a 50W with PMH nonischemic cardiomyopathy, CHFrEF with EF 20-25%, s/p pacemaker who presents to the hospital with chest pain and shortness of breath. She notes that she has had three days of chest pain and back pain that are in a band across the center of her chest and across her back. She says the pain is sharp. It is associated with shortness of breath. It does not seem to be worse with exertion. She has no cough, or reflux symptoms. She has known nonischemic cardiomyopathy, she is considering possible cardiac transplant. She is not sure why she has cardiomyopathy. She can not recall her last stress test or angiogram In the ED, workup was done, vitals notable for tachycardia and tachypnea. Labs notable for WBC 8.0, hgb 14.6, K 3.0, creatinine 0.84, trop negative x3, BNP 268, digoxin less than assay, COVID negative. EKG with downward ST segments in inferior leads and lateral leads, with ST elevation in AVR. Cardiology was consulted who did not think patient was having acute ACS. This was confirmed with three negative troponins. Nitro did not help chest pain. CTA of the chest showed no acute process. ECHO showed severely dilated LV, EF 20-25%, severe global hypokinesis of the left ventricle, trivial pericardial effusion that was not changed from prior. She was admitted for further treatment. Family history: father with lung cancer Discharge Providers Provider Date of admission: 02/24/21 11:06 Discharge Date: 02/25/21 Primary care physician: Geetha Martinez MD Discharge provider: Bill Constantino MD Summary Hospital Course Discharge Diagnosis: 1. Chest pain, possible costochondritis vs pericarditis 2. Nonischemic cardiomyopathy with CHFrEF, s/p PPM 3. Hyopkalemia, hypomagnesemia 4. Depression, anxiety 5. Morbid obesity Hospital Course: Ms. Casillas was admitted with chest pain. Her pain was reproducible on palpation. Workup showed negative troponins. Her pain was not improved with nitro. CTA n egative for PE or other acute process. ECHO was unchanged from prior. She was admitted with plan for stress test. However her pain improved with nsaids and colchicine and after discussion with cardiology they recommended against stress test and discharge with close follow up with cardiology. She was referred to her senior communications engineer. Exam Vital Signs (past 8 hours): Oxygen Delivery Method Room Air Oxygen Flow Rate 0 Narrative Exam Narrative: GEN: no acute distress HEENT: moist mucous membranes NECK: trachea midline, no JVD CHEST: reproducible chest pain with palpation BACK: reproducible pain with palpation CV: tachycardic, no murmurs PULM: clear bilaterally, no wheezes, rhonchi, rales ABD: soft, nontender, nondistended, no organomegaly, normal bowel sounds EXT: warm and well perfused, no edema NEURO: awake and alert, no focal deficits Objective Labs Result Diagrams: 02/25/21 05:01 02/25/21 05:01 [facility] Medical History Dizziness History of congestive heart failure Hypertension Pacemaker Seasonal allergies Surgical History History of laparoscopic cholecystectomy Social History household members: significant other and children Smoking Status: Never smoker alcohol intake: former Discharge Plan Discharge Plan Patient Disposition: Home Provider Discharge Comment: Ms. Casillas came in with chest pain. She had possible pericarditis. She was given pain medications and improved. She had testing of her heart which showed no heart attack. Her ECHO was not changed from previous. She should follow up with her senior communications engineer in 1-2 weeks. Discharge orders & Medications Prescriptions: New colchicine 0.6 mg Tablet 0.6 mg PO BID Qty: 14 0RF Continued gabapentin 300 mg Capsule 300 mg PO TID 0RF cyclobenzaprine 10 mg tablet 10 mg PO TID PRN (Reason: muscle spasm) Qty: 14 0RF amitriptyline 50 mg Tablet 100 mg PO DAILY 0RF Rx Instructions: Take 100-150 daily metoprolol succinate 50 mg Tablet Extended Release 24 Hr 50 mg PO DAILY 0RF hydroxyzine HCl 25 mg Tablet 25 mg PO TID 0RF digoxin 125 mcg (0.125 mg) Tablet 250 mcg PO DAILY 0RF fluticasone propionate 50 mcg/actuation [place],Suspension 1 spray INTRANASAL DAILY 0RF Rx Instructions: administer into each nostril lisinopril 2.5 mg Tablet 2.5 mg PO TID 0RF Rx Instructions: 1 tab AM and 2 tabs PM potassium chloride 20 mEq Tablet Extended Release 20 meq PO QWEEK 0RF Rx Instructions: 1 pill 1x week *Ask patient for instructions torsemide 20 mg Tablet 40 mg PO BID 0RF sertraline 150 mg Capsule 150 mg PO DAILY 0RF metolazone 2.5 mg Tablet 2.5 mg PO USEASDIRECTD 0RF Discontinued naproxen 500 mg Tablet 500 mg PO BID 0RF Follow up/Referrals: Geetha Martinez MD [Primary Care Provider] - Tasha Ritter MD [Physician] - (chest pain, ?pericarditis, follow up 1-2 weeks) Diet/Activity/Treatments Diet: Diet as Tolerated Visit Report/Discharge Packet Instructions: DI for Heart Failure, DI for Chest Pain Discharge Data Primary Care Provider: Geetha Martinez Attending Provider: Bill Constantino [facility] [place] The patient has current or prior documentation of left ventricular ejection fraction (LVEF) less than 40%, or moderate or severely depressed left ventricular systolic function.: Yes A. The patient was prescribed or already taking an Angiotensin-Converting Enzyme (NIECY) Inhibitor, or Angiotensin Receptor Sadie (ARB).: Yes B. The patient was prescribed or already taking a beta-sadie. [If Yes to Both A & B, STOP here]: Yes
[2021-02-25] MEDS: SERTRALINE 50 MG TABLET 150 MG PO (08:16)
[2021-02-25] MEDS: COLCHICINE 0.6 MG TABLET PO (08:16)
[2021-02-25] MEDS: CYCLOBENZAPRINE 10 MG TABLET PO (08:16)
[2021-02-25] MEDS: AMITRIPTYLINE 25 MG TABLET 100 MG PO (08:16)
[2021-02-25] MEDS: hydrOXYzine pamoate 25 MG CAPSULE PO (08:16)
[2021-02-25] MEDS: METOPROLOL ER 50 MG TABLET PO (08:16)
[2021-02-25] MEDS: GABAPENTIN 300 MG CAPSULE PO (08:16)
[2021-02-25] MEDS: ENOXAPARIN 40 MG/0.4 ML SYRINGE SUBCUT (08:17)
--- NOTE | 2021-02-25 11:51 | CM.DANOTE ---
DCP/Assessment: Reviewed chart. Patient is a 50yr old female admitted to [facility] with [facility] pain. PCP is Dr. Martinez. Primary payor is 1)[facility] 2)Medicaid. Met with patient this AM explained CM/SW role. Patient ambulates I at baseline. Patient reports that she has just not been feeling well. Patient with h/o CHF with very low ejection fraction. Patient sees [facility] as outpatient. Patient hopes to go to [facility] next month for further cardiac treatment. Patient understanding is that she needs a heart transplant. P: Home today. Patient requesting to take taxi. RN given number to local [email or web address]. Patient agreeable to cover cost. KJS Discharge Planning/Care Management Advanced directive, confirm from FAMILY Start: 02/24/21 12:24 Freq: Q24H Status: Complete Protocol: Document 02/24/21 12:24 TJB (Rec: 02/24/21 12:48 TJB [id number]) Advance Directive, confirm on record Time 12:48 Person contacted pt does not have Copy received No Advanced directive available on record No CM Discharge Assessment Start: 02/25/21 11:47 Freq: Status: Active Protocol: Document 02/25/21 11:48 KJS (Rec: 02/25/21 11:51 [id number]) Discharge Planning Assessment Assigned Owner/Operator CARLTON Lazo Contact Information Ines Méndez (friend) # [phone] Advance Directives? No Advance Directives on File No History Provided By Patient,Medical Record Prior Living Arrangements Apartment/Condo Household Members significant other,children Type of transporation used prior to Drives own vehicle admit Independent with ADL's Yes Is patient alert and oriented? Yes Caregiver for Another Yes: 2 daughters under 18 Barriers to Discharge No Discharge Plan Home Transportation Arrangement Patient hoping to take a taxi home. Patient resides nearby and has financial funds to cover. Referrals Initiated None needed Additional Comment At this time Review Status In Process Next Review Type Continued Stay Review
--- NOTE | 2021-02-25 12:08 | PC.NURSE ---
Day shift: Paperwork signed and all questions answered. Pt has all personal belongings. Pt is taking a taxi across the street to her home. She has 2 daughters that will help take care of her when she gets there. She still has SOB with activity. Was given MD script and encouraged to take that med as directed. Was given CHF information and was also discussed with her. Taken to taxi via WC today at approx 1200 by ANNIE Henry.
--- NOTE | 2021-02-26 13:28 | DI.NM.S_ITS ---
DATE OF SERVICE: This dictation is to document 12 mCi of technetium 99m given to the patient as part of the rest study. However, no images were obtained as the study was canceled. CasillasHellen - RIGO/mark anthony/saige doc#: [id number]/job#: [id number] dd: 02/25/2021 13:18:00 dt: 02/25/2021 14:05:00 DICTATING MD/COPIES TO: Erik Alonso MD COPIES MNE: TERESE;
== END 2021-02-25 12:11 | disposition home or self-care (01) ==
LOC: ED 02-24 06:47 → AC 02-24 11:57
PROVIDERS: Emergency Medicine; Nurse Practitioner Family; Admitting Provider Internal Medicine; Emergency Provider Emergency Medicine; PCP Family Medicine; Referring Provider Emergency Medicine; Visit Provider Internal Medicine
DX: R07.9 Chest pain, unspecified (principal); Z95.0 Presence of cardiac pacemaker; I42.8 Other cardiomyopathies; E87.6 Hypokalemia; E83.42 Hypomagnesemia; F32.9 Major depressive disorder, single episode, unspecified; F41.9 Anxiety disorder, unspecified; E66.01 Morbid (severe) obesity due to excess calories; Z68.43 Body mass index [BMI] 50.0-59.9, adult
CPT/HCPCS: 36415; 71045; 71275; 74174; 78452; 80048; 80053; 80162; 82550; 83690; 83735; 83880; 84484; 85025; 85610; 85730; 87635; 93005; 93307; 94760; 96365; 96366; 96372; 96375; 96376; 99285; C9803; G0378; A9502; J1650; J1885; J2270; J2405; J3475; Q9967

== ENCOUNTER 2021-04-16 18:19 | Emergency (ER) | payer OTHER, MEDICAID, SELFPAY ==
[2021-02-24 12:08] VITALS: BMI 56.7
[2021-04-16 18:48] VITALS: BP 119/66; PULSE 91; RESP 17; TEMP 37; O2SAT 97; BMI 52.9
--- NOTE | 2021-04-16 18:53 | DI.RAD.S_ITS ---
PROCEDURE: XR CHEST 1V INDICATIONS: chest pain TECHNIQUE: One view of the chest was acquired. COMPARISON: [facility], CR, XR CHEST 1V, 02/23/2021, 16:33. FINDINGS: Surgical changes and devices: Left chest wall pacemaker position is unchanged. Lungs and pleura: Lungs are clear. No pleural effusions or pneumothorax. Mediastinum: Mediastinal contours appear normal. Heart size is enlarged. Bones and chest wall: No suspicious bony lesions. Overlying soft tissues appear unremarkable. IMPRESSION: No acute cardiopulmonary pathology. Dictated by: Ervin Allison M.D. on 04/16/2021 at 19:30 Approved by: Ervin Allison M.D. on 04/16/2021 at 19:31
--- NOTE | 2021-04-16 19:21 | ED_ITS ---
HPI - Chest Pain General Chief Complaint: Chest Pain Stated Complaint: vomitting x2 days, chest and back pain Time Seen by Provider: 04/16/21 19:21 Source: patient Mode of arrival: Wheelchair History of Present Illness HPI narrative: 50-year-old woman with a history of Nonischemic cardiomyopathy with congestive heart failure and ejection fraction estimated at 20-25%. History of depression, anxiety, morbid obesity. She was recently admitted to [facility] from April 01 to . She has a pacemaker. She notes that she has been having some emesis over the last 2 days complains of mild headache, no fever or cough. Since discharge from the hospital on the AP she has been placed on torsemide and is down 10 lb. She complains that she is having central chest pain that is not improving and she is concerned that it is her heart. She states that it is worse with deep breathing, worse with palpation along her sternum, unrelenting over the last week and not related to exercise. She describes no significant cough and notes that her lower extremity edema has completely resolved at this point. Related Data Home Medications Medication Instructions Recorded Confirmed gabapentin 300 mg capsule 300 mg PO TID 11/20/19 02/24/21 amitriptyline 50 mg tablet 100 mg PO DAILY 02/24/21 02/24/21 digoxin 125 mcg (0.125 mg) tablet 250 mcg PO DAILY 02/24/21 02/24/21 fluticasone propionate 50 1 spray INTRANASAL DAILY 02/24/21 02/24/21 mcg/actuation nasal spray,suspension hydroxyzine HCl 25 mg tablet 25 mg PO TID 02/24/21 02/24/21 lisinopril 2.5 mg tablet 2.5 mg PO TID 02/24/21 02/24/21 metolazone 2.5 mg tablet 2.5 mg PO USEASDIRECTD 02/24/21 02/24/21 metoprolol succinate 50 mg 50 mg PO DAILY 02/24/21 02/24/21 tablet,extended release 24 hr potassium chloride 20 mEq 20 meq PO QWEEK 02/24/21 02/24/21 tablet,extended release sertraline 150 mg capsule 150 mg PO DAILY 02/24/21 02/24/21 torsemide 20 mg tablet 40 mg PO BID 02/24/21 02/24/21 Previous Rx's Medication Instructions Recorded cyclobenzaprine 10 mg tablet 10 mg PO TID PRN #14 tab 02/24/19 colchicine 0.6 mg tablet 0.6 mg PO BID #14 tab 02/25/21 prednisone 20 mg tablet 20 mg PO DAILY #5 tab 04/17/21 Allergies Allergy/AdvReac Type Severity Reaction Status Date / Time No Known Drug Allergies Allergy Verified 04/16/21 18:52 Review of Systems Review of Systems Narrative: Remainder of complete review of systems is otherwise unremarkable except for that included in the HPI. Patient History Medical History Dizziness History of congestive heart failure Hypertension Pacemaker Seasonal allergies Surgical History History of laparoscopic cholecystectomy Social History household members: significant other and children Smoking Status: Never smoker alcohol intake: former Smoking Status: Never smoker alcohol intake frequency: holidays/special occasions only Substance Use Type: does not use Exam Initial Vital Signs Initial Vital Signs: Vital Signs Temperature 98.6 F 04/16/21 18:48 Pulse Rate 91 H 04/16/21 18:48 Respiratory Rate 17 04/16/21 18:48 Blood Pressure 119/66 04/16/21 18:48 Pulse Oximetry 97 04/16/21 18:48 General: Healthy appearing, in no acute distress. Able to give a complete and coherent history. Well-nourished well-developed HEENT: Moist mucous membranes, normal sclera with reactive pupils, Neck: No JVD, supple Respiratory: Lungs are clear to auscultation, no wheezing no rales no rhonchi. Full and symmetrical air movement Chest: Significant tenderness along both right and left sternal borders/costochondral margins. Palpation in this area completely reproduces her pain and the chest heaviness. Cardiac: Regular rate and rhythm no murmurs no bruits Abdomen: Soft, nontender, good bowel tones, no flank pain Skin: Warm and dry, no rashes Neurologic: Grossly neurologically intact with no obvious asymmetries or abnormalities Extremities: No trauma, well perfused, no lower extremity edema Psych: Cooperative, appropriate insight and affect Course Orders Ordered: ED Orders 04/16/21 18:53 XR chest 1V Stat Complete Blood Count AUTO DIFF Stat Comprehensive Metabolic Panel Stat Lipase Stat Magnesium Stat Troponin & CK Cardiac Panel Stat EKG-12 Lead Stat 04/16/21 22:56 EKG-12 Lead Stat 04/16/21 23:00 Trop I [Troponin I] Stat Discontinued Medications Acetaminophen (Acetaminophen 325 Mg Tablet) 975 mg PO NOW ONE Stop: 04/17/21 00:31 Last Admin: 04/17/21 00:54 Dose: 975 mg Documented by: MARY Al Hydrox/Mg Hydrox/Simethicone 20 ml/ Lidocaine HCl 15 ml 0 ml PO NOW ONE Stop: 04/16/21 23:36 Last Admin: 04/16/21 23:46 Dose: 30 ml Documented by: PILLO Methylprednisolone (Methylprednisolone 125 Mg/2 Ml Vial) 60 mg IV NOW ONE Stop: 04/17/21 00:31 Last Admin: 04/17/21 00:55 Dose: 60 mg Documented by: MARY Vital Signs Vital signs: Vital Signs - 8 hr 04/16/21 18:48 04/16/21 22:19 Temperature 98.6 F Pulse Rate 91 H 88 Respiratory Rate 17 16 Blood Pressure 119/66 117/58 L Pulse Oximetry 97 98 MDM - Chest Pain Lab Data Result diagrams: 04/16/21 18:53 04/16/21 18:53 Labs: Lab Results 04/16/21 04/16/21 04/16/21 Range/Units 18:53 18:53 23:00 WBC 8.5 (4.5-11.0) X10^3/uL RBC 5.28 H (4.0-5.2) X10^6/uL Hgb 14.2 (12.0-16.0) g/dL Hct 42.2 (36-46) % MCV 79.8 L (80-100) fL MCH 27.0 (26-34) PG MCHC 33.8 (30-36) % RDW 17.2 H (11.6-14.8) % Plt Count 270 (150-400) X10^3/uL Neut % (Auto) 75.1 H (50-75) % Lymph % (Auto) 17.1 L (25-40) % Richardson % (Auto) 5.2 (3-14) % Eos % (Auto) 1.4 L (2-4) % Baso % (Auto) 1.2 (0-2) % Neut # (Auto) 6400 (3472-6401) /uL Lymph # (Auto) 1500 (0317-2567) /uL Richardson # (Auto) 400 (0-900) /uL Eos # (Auto) 100 (0-450) /uL Baso # (Auto) 100 (0-100) /uL Sodium 134 L (137-145) mmol/L Potassium 3.2 L (3.4-5.1) mmol/L Chloride 94 L (98-107) mmol/L Carbon Dioxide 32 (22-32) mmol/L BUN 20 H (7-17) mg/dL Creatinine 0.90 (0.52-1.04) mg/dL Estimated GFR > 60.0 (>60) mL/min BUN/Creatinine Ratio 22.2 H (6-22) Glucose 139 H (70-100) mg/dL Calcium 10.2 (8.4-10.2) mg/dL Magnesium 1.8 (1.6-2.3) mg/dL Total Bilirubin 0.6 (0.2-1.3) mg/dL AST 30 (14-36) IU/L ALT 23 (<35) IU/L Alkaline Phosphatase 122 (38-126) U/L Total Creatine Kinase 51 (30-135) U/L CK-MB (CK-2) TNP CK-MB (CK-2) Rel Index TNP Troponin I < 0.012 < 0.012 (0.01-0.034) ng/mL Total Protein 8.7 H (6.3-8.2) g/dL Albumin 4.6 (3.5-5.0) g/dL Globulin 4.1 (1.7-4.1) g/dL Albumin/Globulin Ratio 1.1 (1.0-2.8) Lipase 36 (23-300) U/L Imaging Data Chest x-ray: Radiologist's Impression: FINDINGS:? ? Surgical changes and devices:? Left chest wall pacemaker position is unchanged. ? Lungs and pleura:? Lungs are clear.? No pleural effusions or pneumothorax.? ? Mediastinum:? Mediastinal contours appear normal.? Heart size is enlarged.? ? Bones and chest wall:? No suspicious bony lesions.? Overlying soft tissues appear unremarkable.? ? IMPRESSION:? No acute cardiopulmonary pathology. ? ? Dictated by: Ervin Allison M.D. on 04/16/2021 at 19:30? ?? ECG Data Interpretation: 1909 Sinus rhythm at a rate of 88 Nonspecific intraventricular conduction delay. ST T wave abnormality Similar to EKG January of 2021 2300 Sinus rhythm at a rate of 81 No significant changes from previously MDM Narrative Medical decision making narrative: 50-year-old woman presents with a week of chest pain and pressure that seems to be unrelenting that she is concerned as her heart. She does have a significant cardiac history and in fact is being considered for cardiac transplant. Her pain is absolutely positional, reproducible with palpation and worse with deep breathing. Cardiac workup is very reassuring with no evidence of acute coronary syndrome, STEMI, pneumothorax, congestive heart failure, infectious etiology. Because of her cardiomyopathy will opt to treat with 5 days of steroids rather than nonsteroidals to help with the costochondritis that I think is her primary diagnosis. Will also ask her to use Tylenol. We did try a GI cocktail with no relief so I believe reflux or GI pathology is less likely. Instructions are given, questions are answered and she is safe for home discharge and will follow-up with her primary care provider. Discharge Plan Departure Patient Disposition: Home Clinical Impression: Acute costochondritis Instructions: DI for Costochondritis Activity Restrictions/Additional Instructions: Thank you for coming in today It is frightening to have chest pain persisting when you do have a cardiac history you have. Fortunately, your lab work was very reassuring. You are not having a heart attack or heart attack like syndrome. You do not have worsening congestive heart failure. The torsemide you are taking does seem to be working nicely. You do not have a significant lung infection. You do have costochondritis. I have included information on costochondritis for you to read about. It is inflammation at the edge of your breast bone where your ribs attached. The typical treatment for this is nonsteroidals however we can not use this with your heart issues. We are going to use 5 days of prednisone, 20 mg daily. I would also recommend Tylenol when it seems like it is particularly painful The prednisone prescription was electronically sent to [facility]. You need to take the 1st dose sometime tomorrow afternoon. Please continue your torsemide and checking daily weights. Sometimes prednisone can make you hold on to a bit of fluid. If your weight is going up you need to talk with your primary care doctor or apartment maintenance supervisor. Please follow-up with your primary care physician and your apartment maintenance supervisor If you find that you are getting worse or develop new symptoms please return to the ER Prescriptions: New prednisone 20 mg tablet 20 mg PO DAILY Qty: 5 0RF No Action gabapentin 300 mg Capsule 300 mg PO TID 0RF cyclobenzaprine 10 mg tablet 10 mg PO TID PRN (Reason: muscle spasm) Qty: 14 0RF amitriptyline 50 mg Tablet 100 mg PO DAILY 0RF Rx Instructions: Take 100-150 daily metoprolol succinate 50 mg Tablet Extended Release 24 Hr 50 mg PO DAILY 0RF hydroxyzine HCl 25 mg Tablet 25 mg PO TID 0RF digoxin 125 mcg (0.125 mg) Tablet 250 mcg PO DAILY 0RF fluticasone propionate 50 mcg/actuation [place],Suspension 1 spray INTRANASAL DAILY 0RF Rx Instructions: administer into each nostril lisinopril 2.5 mg Tablet 2.5 mg PO TID 0RF Rx Instructions: 1 tab AM and 2 tabs PM potassium chloride 20 mEq Tablet Extended Release 20 meq PO QWEEK 0RF Rx Instructions: 1 pill 1x week *Ask patient for instructions torsemide 20 mg Tablet 40 mg PO BID 0RF sertraline 150 mg Capsule 150 mg PO DAILY 0RF metolazone 2.5 mg Tablet 2.5 mg PO USEASDIRECTD 0RF colchicine 0.6 mg Tablet 0.6 mg PO BID Qty: 14 0RF Referrals: Geetha Martinez MD [Primary Care Provider] -
[2021-04-16 19:45] LABS: Add Manual Diff / Slide Review NO; Basophils Absolute Auto 100 /uL (0-100); Basophils Percent Auto 1.2 % (0-2); Eosinophils Absolute Auto 100 /uL (0-450); Eosinophils Percent Auto 1.4 % (2-4); Hematocrit 42.2 % (36-46); Hemoglobin 14.2 g/dL (12.0-16.0); Lymphocytes Absolute Auto 1500 /uL (1100-4500); Lymphocytes Percent Auto 17.1 % (25-40); Mean Corpuscular HGB Conc 33.8 % (30-36); Mean Corpuscular Volume 79.8 fL (80-100); Monocytes Absolute Auto 400 /uL (0-900); Monocytes Percent Auto 5.2 % (3-14); Neutrophils Absolute Auto 6400 /uL (1500-7000); Neutrophils Percent Auto 75.1 % (50-75); Platelet Count 270 X10^3/uL (150-400); Red Blood Cell Count 5.28 X10^6/uL (4.0-5.2); Red Cell Distribution Width 17.2 % (11.6-14.8); White Blood Cell Count 8.5 X10^3/uL (4.5-11.0)
[2021-04-16 20:08] LABS: Alanine Aminotransferase 23 IU/L (<35); Albumin 4.6 g/dL (3.5-5.0); Albumin Globulin Ratio 1.1 (1.0-2.8); Alkaline Phosphatase 122 U/L (38-126); Aspartate Aminotransferase 30 IU/L (14-36); BUN Creatinine Ratio 22.2 (6-22); Bilirubin Total 0.6 mg/dL (0.2-1.3); Blood Urea Nitrogen 20 mg/dL (7-17); Calcium 10.2 mg/dL (8.4-10.2); Carbon Dioxide 32 mmol/L (22-32); Chloride 94 mmol/L (98-107); Creatine Kinase 51 U/L (30-135); Estimated Glomerular Filt Rate > 60.0 mL/min (>60); Globulin 4.1 g/dL (1.7-4.1); Glucose 139 mg/dL (70-100); HEMOLYSIS < 15 (0-50); Lipase 36 U/L (23-300); Magnesium 1.8 mg/dL (1.6-2.3); Potassium 3.2 mmol/L (3.4-5.1); Sodium 134 mmol/L (137-145); Total Protein 8.7 g/dL (6.3-8.2)
[2021-04-16 20:19] LABS: Troponin I < 0.012 ng/mL (0.01-0.034)
[2021-04-16 22:19] VITALS: BP 117/58; PULSE 88; RESP 16; O2SAT 98
--- NOTE | 2021-04-16 23:00 | PC.NURSE ---
No lower extremity edema noted, radial pulses equal and normal strength bilaterally, pt reports vomiting after eating meals. Reports chest pressure, similar to her recent admission at [facility] and states it was r/t her CHF then, has been taking her lasix as prescribed. Denies SOB.
[2021-04-16 23:30] LABS: Troponin I < 0.012 ng/mL (0.01-0.034)
[2021-04-16] MEDS: MAG HYDROX/ALUMINUM/SIMETH SUS 20 ML, LIDOCAINE VISCOUS 2% 15 ML PO (23:46)
[2021-04-17] MEDS: ACETAMINOPHEN 325 MG TABLET 975 MG PO (00:54)
[2021-04-17] MEDS: methylPREDNISolone 125 MG/2 ML VIAL 60 MG IV (00:55)
[2021-04-17 01:21] VITALS: BP 94/76; PULSE 98; RESP 19; O2SAT 92
== END 2021-04-17 01:22 | disposition home or self-care (01) ==
PROVIDERS: Emergency Provider Emergency Medicine; PCP Family Medicine
DX: M94.0 Chondrocostal junction syndrome [Tietze] (principal)
CPT/HCPCS: 36415; 71045; 80053; 82550; 83690; 83735; 84484; 85025; 93005; 93010; 96374; 99284; J2930

== ENCOUNTER 2021-05-04 09:07 | Emergency (ER) | payer OTHER, MEDICAID, SELFPAY ==
[2021-02-24 12:08] VITALS: BMI 56.7
[2021-05-04] VITALS (27 sets, daily range): BP systolic 108–135; BP diastolic 56–74; PULSE 91–109; RESP 18–34; TEMP 36.8; O2SAT 94–99; BMI 52.1
--- NOTE | 2021-05-04 09:15 | DI.RAD.S_ITS ---
PROCEDURE: XR CHEST 1V INDICATIONS: chest pain TECHNIQUE: One view of the chest was acquired. COMPARISON: [facility], CR, XR CHEST 1V, 04/16/2021, 19:08. FINDINGS: Surgical changes and devices: Left chest wall pacemaker lead is in the region of right ventricle. Lungs and pleura: Lungs are clear. No pleural effusions or pneumothorax. Mediastinum: Mediastinal contours appear normal. Heart size is normal. Bones and chest wall: No suspicious bony lesions. Overlying soft tissues appear unremarkable. IMPRESSION: No acute cardiopulmonary pathology. Dictated by: Ervin Allison M.D. on 05/04/2021 at 9:38 Approved by: Ervin Allison M.D. on 05/04/2021 at 9:38
--- NOTE | 2021-05-04 09:55 | ED_ITS ---
HPI - Chest Pain General Chief Complaint: Chest Pain Stated Complaint: Chest pain Time Seen by Provider: 05/04/21 09:24 Source: patient Mode of arrival: Wheelchair Limitations: no limitations History of Present Illness HPI narrative: The patient awoke to a.m. this morning with left anterior chest pain. Pain radiates to her back. She denies recent illness. She has had no URI symptoms, sore throat, fever or cough. She has no orthopnea or edema. She has a pacemaker in place, she has had no palpitations. She has no dyspnea. The pacemaker placed about 2017. Diagnosis of cardiomyopathy followed. She has ca rdiomyopathy, uncertain etiology. EF is 20%. She has history of CHF. With the current left chest pain, she has no dyspnea, no orthopnea. She has no significant edema. She is comfortable when lying flat on her back here in the ER. She denies recent illness. She has no cough, no fever. She has no URI symptoms. She has no GI complaints. Related Data Home Medications Medication Instructions Recorded Confirmed gabapentin 300 mg capsule 300 mg PO TID 11/20/19 02/24/21 amitriptyline 50 mg tablet 100 mg PO DAILY 02/24/21 02/24/21 fluticasone propionate 50 1 spray INTRANASAL DAILY 02/24/21 02/24/21 mcg/actuation nasal spray,suspension hydroxyzine HCl 25 mg tablet 25 mg PO TID 02/24/21 02/24/21 lisinopril 2.5 mg tablet 2.5 mg PO TID 02/24/21 02/24/21 metolazone 2.5 mg tablet 2.5 mg PO USEASDIRECTD 02/24/21 02/24/21 metoprolol succinate 50 mg 50 mg PO DAILY 02/24/21 02/24/21 tablet,extended release 24 hr potassium chloride 20 mEq 20 meq PO QWEEK 02/24/21 02/24/21 tablet,extended release sertraline 150 mg capsule 150 mg PO DAILY 02/24/21 02/24/21 torsemide 20 mg tablet 40 mg PO BID 02/24/21 02/24/21 Previous Rx's Medication Instructions Recorded cyclobenzaprine 10 mg tablet 10 mg PO TID PRN #14 tab 02/24/19 colchicine 0.6 mg tablet 0.6 mg PO BID #14 tab 02/25/21 prednisone 20 mg tablet 20 mg PO DAILY #5 tab 04/17/21 Allergies Allergy/AdvReac Type Severity Reaction Status Date / Time No Known Drug Allergies Allergy Verified 05/04/21 09:18 Review of Systems Constitutional Constitutional: Denies chills, Denies fatigue, Denies fever(s) and Denies headache(s) Eyes Eyes: Denies change in vision Comments: No eye complaints. ENT Ears, Nose, Mouth, and Throat: Denies dysphagia, Denies vertigo, Denies dizziness, Denies headache(s), Denies mouth pain and Denies sore throat Cardiovascular Cardiovascular: Denies chest pain, Denies syncope, Denies rapid heart rate, Denies pedal edema and Denies dyspnea Respiratory Respiratory: Denies cough and Denies dyspnea Gastrointestinal Gastrointestinal: Denies abdominal pain, Denies change in stool character, Denies dysphagia and Denies nausea Musculoskeletal Musculoskeletal: Reports back pain, Denies myalgias, Denies joint swelling and Denies muscle weakness Integumentary/Breasts Skin/Breast: Denies lesions and Denies rash Neurologic Neurologic: Denies vertigo, Denies dizziness, Denies syncope and Denies headache(s) Endocrine Endocrine: Denies fatigue Hematologic/Lymphatic On Anticoagulants: No Patient History Medical History (Updated 05/04/21 @ 14:27 by Eric Roblero MD) Cardiomyopathy Dizziness History of congestive heart failure Hypertension Pacemaker Pacemaker Seasonal allergies Surgical History History of laparoscopic cholecystectomy Social History household members: significant other and children Smoking Status: Never smoker alcohol intake: former Smoking Status: Never smoker alcohol intake frequency: holidays/special occasions only Substance Use Type: does not use Exam Initial Vital Signs Initial Vital Signs: Vital Signs Temperature 98.2 F 05/04/21 09:10 Pulse Rate 109 H 05/04/21 09:10 Respiratory Rate 24 05/04/21 09:10 Blood Pressure 135/68 05/04/21 09:10 Pulse Oximetry 95 05/04/21 09:10 Const General: cooperative, healthy appearing and comfortable [facility] Head: normocephalic and atraumatic Throat: posterior oropharynx normal Eyes General: appearance normal, both eyes and all related structures Neck Neck: No JVD Resp Effort & Inspection: normal respiratory effort Auscultation: clear to auscultation bilaterally Cardio Rate: regular rate Rhythm: regular rhythm Heart Sounds: S1 normal, S2 normal, no gallops and no murmurs GI Inspection: normal to inspection Palpation: soft and No tender Back/Spine/Pelvis Back: normal to inspection and No CVA tenderness Skin General: no rashes or lesions noted Neuro General: patient alert, patient awake and no focal motor deficits Extrem General: normal to inspection, no pedal edema and no calf tenderness Psych Appearance: grossly normal Course Course Course Narrative: Medical records reviewed. Patient has cardiomyopathy with EF of 20%. She has a pacemaker placed. There is no evidence of acute coronary syndrome. She had a mildly elevated D-dimer, CTA of the chest showed no evidence of PE. Cardiomegaly was noted. She has mild CHF, Lasix was given. She takes torsemide as an outpatient for CHF. Has no hypoxia or dyspnea. She is advised to follow- up with her outplacement consultant. She is clinically stable time of discharge, no chest discomfort, no dyspnea or hypoxia. Orders Ordered: ED Orders 05/04/21 09:15 XR chest 1V Stat 05/04/21 09:16 EKG-12 Lead Stat 05/04/21 10:12 Complete Blood Count AUTO DIFF Stat Comprehensive Metabolic Panel Stat Lipase Stat Magnesium Stat NT-proBNP (BNP-Adult 18+) Stat Partial Thromboplastin Time Stat Prothrombin Time INR Stat Troponin & CK Cardiac Panel Stat 05/04/21 10:33 COVID19 -Nasal swab/Pre-Proc Stat 05/04/21 11:24 D Dimer Stat 05/04/21 12:23 CT angio chest PE protocol Stat Discontinued Medications Furosemide (Furosemide 40 Mg/4 Ml Vial) 40 mg IV NOW ONE Stop: 05/04/21 13:39 Last Admin: 05/04/21 13:54 Dose: 40 mg Documented by: Morphine Sulfate (Morphine 4 Mg/Ml Inj) 4 mg IV NOW ONE Stop: 05/04/21 09:54 Last Admin: 05/04/21 11:09 Dose: 4 mg Documented by: DUSTIN Propofol (Propofol 200 Mg/20 Ml Vial) 120 mg IV NOW ONE Stop: 05/04/21 13:51 Last Admin: 05/04/21 13:52 Dose: Not Given Documented by: Vital Signs Vital signs: Vital Signs - 8 hr 03/07/22 09:10 05/04/21 09:13 05/04/21 09:15 Temperature 98.2 F Pulse Rate 109 H 108 H 104 H Respiratory Rate 24 31 H Blood Pressure 135/68 Pulse Oximetry 95 96 97 05/04/21 09:30 05/04/21 09:31 05/04/21 09:45 Temperature Pulse Rate 100 H 100 H 94 H Respiratory Rate 34 H 34 H 28 H Blood Pressure 120/68 Pulse Oximetry 99 99 97 05/04/21 10:00 05/04/21 10:15 05/04/21 10:30 Temperature Pulse Rate 93 H 91 H Respiratory Rate 31 H 19 Blood Pressure 108/66 128/74 Pulse Oximetry 99 99 05/04/21 10:45 05/04/21 11:00 05/04/21 11:15 Temperature Pulse Rate 91 H 93 H 92 H Respiratory Rate 27 H 34 H Blood Pressure 128/69 Pulse Oximetry 99 99 99 05/04/21 11:30 05/04/21 11:45 05/04/21 12:00 Temperature Pulse Rate 99 H 99 H 99 H Respiratory Rate 24 23 18 Blood Pressure 134/66 135/66 Pulse Oximetry 99 97 95 05/04/21 12:15 05/04/21 12:37 05/04/21 12:39 Temperature Pulse Rate 97 H 103 H 98 H Respiratory Rate 28 H 32 H Blood Pressure 124/57 L Pulse Oximetry 95 97 05/04/21 12:45 05/04/21 13:00 05/04/21 13:01 Temperature Pulse Rate 97 H 95 H 95 H Respiratory Rate 20 24 23 Blood Pressure 113/56 L Pulse Oximetry 96 95 95 05/04/21 13:15 Temperature Pulse Rate 95 H Respiratory Rate 22 Blood Pressure Pulse Oximetry 95 MDM - Chest Pain Lab Data Result diagrams: 05/04/21 10:12 05/04/21 10:12 Labs: Lab Results 05/04/21 05/04/21 05/04/21 Range/Units 10:12 10:12 10:12 WBC 6.8 (4.5-11.0) X10^3/uL RBC 4.85 (4.0-5.2) X10^6/uL Hgb 12.9 (12.0-16.0) g/dL Hct 39.2 (36-46) % MCV 80.7 (80-100) fL MCH 26.6 (26-34) PG MCHC 32.9 (30-36) % RDW 16.8 H (11.6-14.8) % Plt Count 238 (150-400) X10^3/uL Neut % (Auto) 68.4 (50-75) % Lymph % (Auto) 22.8 L (25-40) % [place] % (Auto) 5.7 (3-14) % Eos % (Auto) 2.1 (2-4) % Baso % (Auto) 1.0 (0-2) % Neut # (Auto) 4600 (2145-0167) /uL Lymph # (Auto) 1500 (3342-5624) /uL [place] # (Auto) 400 (0-900) /uL Eos # (Auto) 100 (0-450) /uL Baso # (Auto) 100 (0-100) /uL PT 12.5 (10.1-12.7) SECONDS INR 1.1 (0.9-1.3) APTT 36 (26.4-36.2) SECONDS D-Dimer (<230) ng/mL Sodium 136 L (137-145) mmol/L Potassium 3.2 L (3.4-5.1) mmol/L Chloride 98 (98-107) mmol/L Carbon Dioxide 34 H (22-32) mmol/L BUN 11 (7-17) mg/dL Creatinine 0.79 (0.52-1.04) mg/dL Estimated GFR > 60.0 (>60) mL/min BUN/Creatinine Ratio 13.9 (6-22) Glucose 104 H (70-100) mg/dL Calcium 8.7 (8.4-10.2) mg/dL Magnesium 1.7 (1.6-2.3) mg/dL Total Bilirubin 0.5 (0.2-1.3) mg/dL AST 38 H (14-36) IU/L ALT 25 (<35) IU/L Alkaline Phosphatase 122 (38-126) U/L Total Creatine Kinase 46 (30-135) U/L CK-MB (CK-2) TNP CK-MB (CK-2) Rel Index TNP Troponin I < 0.012 (0.01-0.034) ng/mL NT-Pro-B Natriuret Pep 690 H (<125) pg/mL Total Protein 8.0 (6.3-8.2) g/dL Albumin 4.0 (3.5-5.0) g/dL Globulin 4.0 (1.7-4.1) g/dL Albumin/Globulin Ratio 1.0 (1.0-2.8) Lipase 28 (23-300) U/L SARS-CoV-2 (PCR) (Negative) 05/04/21 05/04/21 Range/Units 10:33 11:24 WBC (4.5-11.0) X10^3/uL RBC (4.0-5.2) X10^6/uL Hgb (12.0-16.0) g/dL Hct (36-46) % MCV (80-100) fL MCH (26-34) PG MCHC (30-36) % RDW (11.6-14.8) % Plt Count (150-400) X10^3/uL Neut % (Auto) (50-75) % Lymph % (Auto) (25-40) % [place] % (Auto) (3-14) % Eos % (Auto) (2-4) % Baso % (Auto) (0-2) % Neut # (Auto) (6582-6479) /uL Lymph # (Auto) (8144-1156) /uL [place] # (Auto) (0-900) /uL Eos # (Auto) (0-450) /uL Baso # (Auto) (0-100) /uL PT (10.1-12.7) SECONDS INR (0.9-1.3) APTT (26.4-36.2) SECONDS D-Dimer 308 H (<230) ng/mL Sodium (137-145) mmol/L Potassium (3.4-5.1) mmol/L Chloride (98-107) mmol/L Carbon Dioxide (22-32) mmol/L BUN (7-17) mg/dL Creatinine (0.52-1.04) mg/dL Estimated GFR (>60) mL/min BUN/Creatinine Ratio (6-22) Glucose (70-100) mg/dL Calcium (8.4-10.2) mg/dL Magnesium (1.6-2.3) mg/dL Total Bilirubin (0.2-1.3) mg/dL AST (14-36) IU/L ALT (<35) IU/L Alkaline Phosphatase (38-126) U/L Total Creatine Kinase (30-135) U/L CK-MB (CK-2) CK-MB (CK-2) Rel Index Troponin I (0.01-0.034) ng/mL NT-Pro-B Natriuret Pep (<125) pg/mL Total Protein (6.3-8.2) g/dL Albumin (3.5-5.0) g/dL Globulin (1.7-4.1) g/dL Albumin/Globulin Ratio (1.0-2.8) Lipase (23-300) U/L SARS-CoV-2 (PCR) Negative (Negative) Imaging Data Chest x-ray: Radiologist's Impression: No acute cardiopulmonary process. CT scan - chest: Radiologist's Impression: [address] [facility] Routine Call Back Main ED ?16? My List ?6? Waiting ?5? Surge ED ?0? R01? Gonzalez? Tucker? 35 M? With Doctor? 1h 58m? 3-Urgent? ?? Fall? Thinks fractured rib- left side? ISO? 05/04/21 12:06? REG ER? Draft? Dom Lynch P + pneumo Order BP 135/85 Pulse 84 Resp 24 Temp O2 Sat 98% Imaging ?Prothrombi... Partial Th... ?Complete B... ?Chem MAR COVID19 -N... R02? Monlux? Karen? 86 F? With Doctor? 3h 19m? 2-Emergent? ?? Neuro Symptoms/Deficit? Altered Mental Status? ISO? 05/04/21 10:17? REG ER? Draft? Eric Roblero Olya R Trop 0.[address] Michael kirkpatrick MRI scheduled for 1500 Order BP 142/67 Pulse 66 Resp 18 Temp O2 Sat 98% (RA) Imaging ?Complete B... ?Chem Ethanol (E... ?Prolactin ... Salicylate... ?Urinalysis... ?Acetaminop... Ammonia (N... Lactate (L... ?Prothrombi... ?Troponin &... Urine Drug... POC/CLARIBEL Magnesium ... ?Phosphorou... COVID19 -N... MAR EKG-12 Shelby... Microbiolo... Phosphorou... R04? Franco? Harish? 62 M? With Doctor? 2h 50m? 2-Emergent? ?? Shortness of Breath/Dyspnea? Trouble breathing? ISO, C19S/S? 05/04/21 12:09? REG ER? Draft? Eric Rodriguez echo ordered Order BP 102/57 Pulse 100 Resp 29 Temp O2 Sat 94% ?NT-proBNP ... ?Complete B... ?Chem Lactate (L... ?Prothrombi... ?Troponin &... Imaging EKG MAR EKG-12 [place]... Measure pe... RT Consult... Cardiac mo... COVID19 -N... Consult to... R05? Schrenk? Sharon? 51 F? With Doctor? 50m? 2-Emergent? ?? Chest Pain? Chest pain? ?? 05/04/21 13:29? REG ER? No Document? Dom Peralta T Order BP 142/86 Pulse 77 Resp 18 Temp O2 Sat 98% (RA) ?Complete B... Imaging NPO Diet Chem Magnesium ... Troponin &... Lipase Sta... EKG-12 [place]... Cardiac mo... COVID19 -N... R06? Beverley? Janet? 69 F? With Doctor? 23m? 3-Urgent? ?? Fall? Fall? ?? 05/04/21 13:20? REG ER? Draft? Eric Elizalde S Order BP 148/68 Pulse 72 Resp 16 Temp 98.5 F O2 Sat 99% (RA) MAR Imaging R08? Casillas? Hellen? 50 F? With Doctor? 4h 27m? 2-Emergent? ?? Chest Pain? Chest pain? C19S/S? 05/04/21 09:24? REG ER? Draft? Eric Peterson Told not to take ASA but states not allergic Order BP Pulse 95 Resp 22 Temp O2 Sat 95% Troponin &... ?NT-proBNP ... COVID19 -N... ?Chem Magnesium ... Partial Th... Prothrombi... ?Complete B... Lipase Sta... Imaging ?D Dimer St... MAR NPO Diet Cardiac mo... EKG-12 [place]... R10? Greg? Dorota? 10 F? Ready for Discharge? 2h 59m? 4-Less Urgent? ?? Extremity Injury, Upper? fell, hurt wrist? ?? 05/04/21 12:45? REG ER? No Document? Dom Snow + Fracture Order BP 133/78 Pulse 111 Resp 20 Temp 98.2 F O2 Sat 99% (RA) Imaging R11? Alonso? Reynold? 89 M? With Doctor? 2h 7m? 3-Urgent? ?? Nausea/Vomiting/Diarrhea? Abnormal labs- liver- sent by [facility]? ?? 05/04/21 12:06? REG ER? No Document? Dom Snow INR 11.3 coming to redraw chemistrys, QNS Order BP 125/64 Pulse 87 Resp 60 Temp O2 Sat 98% ?Chem Lipase Sta... ?Partial Th... ?Complete B... ?Prothrombi... Ammonia (N... ?Ictotest U... Cardiac mo... NPO Diet EKG-12 Shelby... POC/CLARIBEL R12? Eddie Paz? Ramesh? 56 M? With Doctor? 1h 30m? 2-Emergent? ?? Abdominal Pain? Umbillical Hernia, Sent From [facility]? ISO? 05/04/21 12:51? REG ER? Draft? Eric Tariq Edy Order BP 122/68 Pulse 94 Resp 18 Temp 98.1 F O2 Sat 98% (RA) ?Complete B... Lipase Sta... ?Chem Partial Th... ?Prothrombi... COVID19 -N... Imaging MAR NPO Diet Cardiac mo... EKG-12 [place]... POC/CLARIBEL Chem NPO Diet Complete B... Ethanol (E... Lipase Sta... Magnesium ... Urine Drug... Cardiac mo... R13? Hernandez? Simpson? 75 M? With Doctor? 38m? 2-Emergent? ?? GI Bleed? Black/bloody stool, dizzy, Referred by EMS? ?? 05/04/21 13:27? REG ER? Draft? Eric Tariq M + symptomatic GI Bleed Order BP 139/63 Pulse 120 Resp 14 Temp 97.2 F O2 Sat 100% (RA) MAR NPO Diet Complete B... Partial Th... Prothrombi... Type and S... EKG-12 Shelby... Chem Cardiac mo... POC/CLARIBEL Ethanol (E... [place]? [facility]? [facility]? 27 M? In Room? 58m? 3-Urgent? ?? Chest Pain? Throwing up blood, pressure in chest- sent by [facility]? C19S/S? No Time Seen? REG ER? No Document? Sign Up Basilia Minaya Micro sent ekg done Order BP 116/67 Pulse 67 Resp 18 Temp 98.1 F O2 Sat 99% (RA) Imaging POC/CLARIBEL NPO Diet Complete B... Magnesium ... EKG-12 Shelby... Cardiac mo... Chem Lipase Sta... Troponin &... Urine Micr... WRoom? Enns? Dmitry? 76 M? Registered? 21m? No Chief Complaint? Fall, Hit Head? ?? No Time Seen? REG ER? No Document? Sign Up Order WRoom? Kevin? Dianne? 35 F? Registered? 1h 37m? 3-Urgent? VC: 1? Abdominal Pain? Abd Wall Hernia? ?? No Time Seen? REG ER? No Document? Sign Up poc-, preg- pain is worse -wants to know when she will be back 1312. When we can! Order BP Pulse 73 Resp 17 Temp 97.8 F O2 Sat 99% (RA) POC/CLARIBEL NPO Diet Chem Lipase Sta... Complete B... WRoom? Patrick? Hay? 58 M? Registered? 1h 18m? 3-Urgent? VC: 1? Extremity Problem,Nontraumatic? Swollen Legs/Red? ?? No Time Seen? REG ER? No Document? Sign Up need weight Order BP 158/78 Pulse 69 Resp 18 Temp 97.3 F O2 Sat 95% (RA) Consult to... WRoom? Evens? Nathan? 49 M? Registered? 16m? No Chief Complaint? Shakey, SOB? ?? No Time Seen? REG ER? No Document? Sign Up Order WRoom? Vincent? Ayleen? 48 F? Registered? 3m? No Chief Complaint? Facial Swelling/Numbness, Rt Side? ?? No Time Seen? REG ER? No Document? Sign Up Order Imaging - CT angio chest PE protocol; XR chest 1V Hellen Casillas??50??F??1970 ? Allergy/Adv: No Known Drug Allergies (More??) Close Results Imaging ACTIVITY DATE EXAM STATUS AUTHOR 05/04/21 12:23 Chest CTA Signed Ervin Allison 05/04/21 09:15 Chest X-Ray Signed Ervin Allison Imaging Reports Close Chest CTA (Signed) Ervin Allison - 05/04/21 Chest X-Ray (Signed) Ervin Allison - 05/04/21 Launch?[place] [address] CT Scan Report Signed Patient: Hellen Casillas MR#: [id number] : 1970 Acct:[id number] Age/Sex: 50 / F Date of Service: 05/04/21 Loc: ED Accession Number: [id number] ?? Procedure: CT angio chest PE protocol Ordering Provider: Eric Roblero MD PROCEDURE:? CT ANGIO CHEST PE PROTOCOL ? INDICATIONS:? Atypical chest pain ? TECHNIQUE:? After the administration of intravenous contrast, 2 mm thick sections acquired from the pulmonary apices to the posterior costophrenic angles.? 3-dimensional maximum intensity projection (MIP) coronal and sagittal reformats were then acquired through the thorax.? For radiation dose reduction, the following was used:? automated exposure control, adjustment of mA and/or kV according to patient size.? ? COMPARISON:? None. ? FINDINGS:? Image quality:? Excellent.? ? Pulmonary arteries:? Pulmonary arteries are normal in size, and demonstrate no intraluminal filling defects to suggest central pulmonary embolism.? ? Lungs and pleura:? A few scattered atelectasis in periphery of bilateral lung armstrong are seen.? No focal airspace opacities.? No pleural effusions or pneumothorax.? Central and peripheral airways are patent.? ? Mediastinum:? Left chest wall pacemaker lead is seen in the region of right ventricle.? Heart size is enlarged, without pericardial effusion.? No mediastinal or hilar adenopathy.? Thoracic aorta is normal in caliber and enhancement.? Esophagus is normal in caliber, without hiatal hernia.? ? Bones and chest wall:? No suspicious bony lesions.? Ribs and thoracic spine appear intact throughout.? Thyroid gland is within normal limits.? No axillary or supraclavicular adenopathy.? ? Abdomen:? Visualized upper abdominal solid organs appear normal in the early arterial phase of enhancement.? ? IMPRESSION:? 1. No evidence of pulmonary emboli.? No thoracic aortic aneurysm or dissection. 2. Cardiomegaly, no pericardial effusion.? No mediastinal or hilar lymphadenopathy. 3.? Scattered atelectasis in periphery of bilateral lung armstrong.? No focal infiltrate, pleural effusion or pneumothorax.? Airway is patent. ? ? Dictated by: Ervin Allison M.D. on 05/04/2021 at 12:50 ? ? Approved by: Ervin Allison M.D. on 05/04/2021 at 12:56 ? ECG Data Attestation: I personally reviewed and interpreted this ECG as follows: (Normal sinus rhythm rate 99 beats per minute. Incomplete RBBB. Nonspecific ST T wave changes. No ectopy. No acute ST elevations.) Discharge Plan Departure Patient Disposition: Home Clinical Impression: Congestive heart failure, Cardiomyopathy, Atypical chest pain Instructions: Heart Failure Activity Restrictions/Additional Instructions: Continue with your current medications. Follow-up with your outplacement consultant. Return here if symptoms escalate. Prescriptions: No Action gabapentin 300 mg Capsule 300 mg PO TID 0RF cyclobenzaprine 10 mg tablet 10 mg PO TID PRN (Reason: muscle spasm) Qty: 14 0RF amitriptyline 50 mg Tablet 100 mg PO DAILY 0RF Rx Instructions: Take 100-150 daily metoprolol succinate 50 mg Tablet Extended Release 24 Hr 50 mg PO DAILY 0RF hydroxyzine HCl 25 mg Tablet 25 mg PO TID 0RF fluticasone propionate 50 mcg/actuation [place],Suspension 1 spray INTRANASAL DAILY 0RF Rx Instructions: administer into each nostril lisinopril 2.5 mg Tablet 2.5 mg PO TID 0RF Rx Instructions: 1 tab AM and 2 tabs PM potassium chloride 20 mEq Tablet Extended Release 20 meq PO QWEEK 0RF Rx Instructions: 1 pill 1x week *Ask patient for instructions torsemide 20 mg Tablet 40 mg PO BID 0RF sertraline 150 mg Capsule 150 mg PO DAILY 0RF metolazone 2.5 mg Tablet 2.5 mg PO USEASDIRECTD 0RF colchicine 0.6 mg Tablet 0.6 mg PO BID Qty: 14 0RF prednisone 20 mg tablet 20 mg PO DAILY Qty: 5 0RF Referrals: Geetha Martinez MD [Primary Care Provider] -
[2021-05-04 10:39] LABS: Add Manual Diff / Slide Review NO; Basophils Absolute Auto 100 /uL (0-100); Eosinophils Absolute Auto 100 /uL (0-450); Eosinophils Percent Auto 2.1 % (2-4); Hematocrit 39.2 % (36-46); Hemoglobin 12.9 g/dL (12.0-16.0); Lymphocytes Absolute Auto 1500 /uL (1100-4500); Lymphocytes Percent Auto 22.8 % (25-40); Mean Corpuscular HGB Conc 32.9 % (30-36); Mean Corpuscular Hemoglobin 26.6 PG (26-34); Mean Corpuscular Volume 80.7 fL (80-100); Monocytes Absolute Auto 400 /uL (0-900); Monocytes Percent Auto 5.7 % (3-14); Neutrophils Absolute Auto 4600 /uL (1500-7000); Neutrophils Percent Auto 68.4 % (50-75); Platelet Count 238 X10^3/uL (150-400); Red Blood Cell Count 4.85 X10^6/uL (4.0-5.2); Red Cell Distribution Width 16.8 % (11.6-14.8); White Blood Cell Count 6.8 X10^3/uL (4.5-11.0)
[2021-05-04 10:46] LABS: INR 1.1 (0.9-1.3); Prothrombin Time 12.5 SECONDS (10.1-12.7)
[2021-05-04 10:49] LABS: PTT Partial Thromboplastin Tim 36 SECONDS (26.4-36.2)
[2021-05-04 10:53] LABS: Alanine Aminotransferase 25 IU/L (<35); Alkaline Phosphatase 122 U/L (38-126); Aspartate Aminotransferase 38 IU/L (14-36); BUN Creatinine Ratio 13.9 (6-22); Bilirubin Total 0.5 mg/dL (0.2-1.3); Blood Urea Nitrogen 11 mg/dL (7-17); Calcium 8.7 mg/dL (8.4-10.2); Carbon Dioxide 34 mmol/L (22-32); Chloride 98 mmol/L (98-107); Creatine Kinase 46 U/L (30-135); Estimated Glomerular Filt Rate > 60.0 mL/min (>60); Glucose 104 mg/dL (70-100); HEMOLYSIS 39 (0-50); Lipase 28 U/L (23-300); Magnesium 1.7 mg/dL (1.6-2.3); Potassium 3.2 mmol/L (3.4-5.1); Sodium 136 mmol/L (137-145)
[2021-05-04 10:56] LABS: COVID19 -Nasal RAPID Negative (Negative)
[2021-05-04 11:05] LABS: NT-proBNP (BNP-Adult 18+) 690 pg/mL (<125); Troponin I < 0.012 ng/mL (0.01-0.034)
[2021-05-04] MEDS: MORPHINE 4 MG/ML INJ IV (11:09)
[2021-05-04 11:32] LABS: D Dimer 308 ng/mL (<230)
--- NOTE | 2021-05-04 12:23 | DI.CT.S_ITS ---
PROCEDURE: CT ANGIO CHEST PE PROTOCOL INDICATIONS: Atypical chest pain TECHNIQUE: After the administration of intravenous contrast, 2 mm thick sections acquired from the pulmonary apices to the posterior costophrenic angles. 3-dimensional maximum intensity projection (MIP) coronal and sagittal reformats were then acquired through the thorax. For radiation dose reduction, the following was used: automated exposure control, adjustment of mA and/or kV according to patient size. COMPARISON: None. FINDINGS: Image quality: Excellent. Pulmonary arteries: Pulmonary arteries are normal in size, and demonstrate no intraluminal filling defects to suggest central pulmonary embolism. Lungs and pleura: A few scattered atelectasis in periphery of bilateral lung armstrong are seen. No focal airspace opacities. No pleural effusions or pneumothorax. Central and peripheral airways are patent. Mediastinum: Left chest wall pacemaker lead is seen in the region of right ventricle. Heart size is enlarged, without pericardial effusion. No mediastinal or hilar adenopathy. Thoracic aorta is normal in caliber and enhancement. Esophagus is normal in caliber, without hiatal hernia. Bones and chest wall: No suspicious bony lesions. Ribs and thoracic spine appear intact throughout. Thyroid gland is within normal limits. No axillary or supraclavicular adenopathy. Abdomen: Visualized upper abdominal solid organs appear normal in the early arterial phase of enhancement. IMPRESSION: 1. No evidence of pulmonary emboli. No thoracic aortic aneurysm or dissection. 2. Cardiomegaly, no pericardial effusion. No mediastinal or hilar lymphadenopathy. 3. Scattered atelectasis in periphery of bilateral lung armstrong. No focal infiltrate, pleural effusion or pneumothorax. Airway is patent. Dictated by: Ervin Allison M.D. on 05/04/2021 at 12:50 Approved by: Ervin Allison M.D. on 05/04/2021 at 12:56
[2021-05-04] MEDS: FUROSEMIDE 40 MG/4 ML VIAL IV (13:54)
== END 2021-05-04 15:01 | disposition home or self-care (01) ==
PROVIDERS: Emergency Provider Emergency Medicine; PCP Family Medicine
DX: I11.0 Hypertensive heart disease with heart failure (principal); I50.9 Heart failure, unspecified; I42.9 Cardiomyopathy, unspecified; R07.89 Other chest pain; Z95.0 Presence of cardiac pacemaker; Z20.822 Contact with and (suspected) exposure to COVID-19
CPT/HCPCS: 36415; 71045; 71275; 80053; 82550; 83690; 83735; 83880; 84484; 85025; 85379; 85610; 85730; 87635; 93005; 93010; 96374; 96375; 99284; C9803; J1940; J2270

== ENCOUNTER → 2022-01-28 17:51 | Outpatient (CLI) | payer OTHER, MEDICAID, SELFPAY ==
[2021-02-24 12:08] VITALS: BMI 56.7
[2022-01-28 19:09] LABS: Influenza A - CEPHEID Flu A NEGATIVE (NEGATIVE); Influenza B - CEPHEID Flu B NEGATIVE (NEGATIVE); Respiratory Syncytial Virus Negative (Negative)
[2022-01-28 19:11] LABS: COVID-19 CEPHEID 4-PLEX PCR Negative (Negative)
== END ==
PROVIDERS: PCP Family Medicine; Visit Provider Registered Nurse
DX: R05.9 Cough, unspecified (principal); J02.9 Acute pharyngitis, unspecified
CPT/HCPCS: 0241U; 87070; 87880

== ENCOUNTER 2024-03-21 09:35 | Emergency (ER) | payer MEDICARE, MEDICAID, SELFPAY ==
[2021-02-24 12:08] VITALS: BMI 56.7
[2024-03-21 09:44] VITALS: BP 136/60; PULSE 115; RESP 16; TEMP 36.7; O2SAT 98; BMI 50.1
--- NOTE | 2024-03-21 09:55 | ED_ITS ---
HPI - Skin/Abscess/Foreign Bdy General Chief complaint: Skin/Abscess/Foreign Body Stated complaint: Purple Knuckles on left hand Time Seen by Provider: 03/21/24 09:45 History of Present Illness HPI narrative: Patient complains of painful nodules discoloration to the hands. Left worse than right. Ongoing for the past 2 weeks. No new products or medications. No prior history of liver disease. Does have history of arthritis. No personal family history of lupus or other autoimmune diseases. Related Data Home Medications Medication Instructions Recorded Confirmed gabapentin 300 mg capsule 300 mg PO TID 11/20/19 01/28/22 amitriptyline 50 mg tablet 100 mg PO DAILY 02/24/21 01/28/22 fluticasone propionate 50 1 spray intranasal DAILY 02/24/21 01/28/22 mcg/actuation nasal spray,suspension hydroxyzine HCl 25 mg tablet 25 mg PO TID 02/24/21 01/28/22 lisinopril 2.5 mg tablet 2.5 mg PO TID 02/24/21 01/28/22 metolazone 2.5 mg tablet 2.5 mg PO USEASDIRECTD 02/24/21 01/28/22 potassium chloride 20 mEq 20 meq PO QWEEK 02/24/21 01/28/22 tablet,extended release torsemide 20 mg tablet 40 mg PO BID 02/24/21 01/28/22 digoxin 250 mcg (0.25 mg) tablet PO DAILY 03/21/24 03/21/24 metoprolol succinate 25 mg mg PO DAILY 03/21/24 03/21/24 tablet,extended release 24 hr montelukast 10 mg tablet mg PO DAILY 03/21/24 03/21/24 sacubitril 24 mg-valsartan 26 mg tab PO 03/21/24 03/21/24 tablet (Entresto) semaglutide 2 mg/dose (8 mg/3 mL) mg SUBCUT 03/21/24 03/21/24 subcutaneous pen injector (Ozempic) sertraline 100 mg tablet mg PO 03/21/24 03/21/24 spironolactone 25 mg tablet mg PO 03/21/24 03/21/24 Previous Rx's Medication Instructions Recorded cyclobenzaprine 10 mg tablet 10 mg PO TID PRN muscle spasm #14 02/24/19 tabs colchicine 0.6 mg tablet 0.6 mg PO BID #14 tabs 02/25/21 Allergies Allergy/AdvReac Type Severity Reaction Status Date / Time No Known Drug Allergies Allergy Verified 03/21/24 08:38 Review of Systems Review of Systems Narrative: GENERAL: Negative chills, fatigue, malaise, fever, sweats. HEENT: Negative sinus pain, ear pain, sore throat RESPIRATORY: Negative dyspnea, cough CARDIOVASCULAR: Negative chest pain, palpitations GASTROINTESTINAL: Negative nausea, vomiting, abdominal pain : Negative dysuria, frequency, hematuria MUSCULOSKELETAL: Negative muscle or bony pain SKIN: Positive rash, skin lesions NEUROLOGIC: Negative weakness, numbness ROS Unobtainable: All systems reviewed & are unremarkable except as noted in HPI and below Patient History Medical History Cardiomyopathy Dizziness History of congestive heart failure Hypertension Pacemaker Pacemaker Seasonal allergies Surgical History History of laparoscopic cholecystectomy Social History household members: significant other and children Smoking Status: Never smoker alcohol intake: former Smoking Status: Never smoker alcohol intake frequency: holidays/special occasions only Exam Narrative Exam Narrative: GENERAL: in no distress, not toxic not dyspneic HEAD: Normocephalic. EYES: Pupils equal round ENT: Mucous membranes moist. NECK: Trachea midline. CARDIOVASCULAR: Regular rate and rhythm RESPIRATORY: Clear to auscultation. Breath sounds equal bilaterally. No wheezes, rales, or rhonchi. GASTROINTESTINAL: Abdomen soft, non-tender EXTREMITIES: No gross deformities. Examination of bilateral hands. There are areas of discoloration at the dorsum of the fingertips mostly on the left side with bluish purplish color discoloration and papules. They are tender to touch. No vesicles. 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 Nontender wrist. No lymphangitis no proximal red streaking. Skin is intact. No crepitus.. No lesions on the palms or volar surface of the fingers or thumb. All 5 fingers are affected on the left side. On the right hand it is on the index middle and ring finger. On the left hand Lesions extend length of the index finger on the dorsum. They extend from fingertip to the PIP joints of the middle ring and little finger of the left. The thumb is affected distal half. On the right hand it only affects the 2nd 3rd and 4th digits but limited to the DIP joint area. BACK: No flank tenderness. NEURO: AOx4. SKIN: Warm and dry PSYCH: Not anxious, is cooperative Initial Vital Signs Initial Vital Signs: Vital Signs Temperature 98.1 F 03/21/24 09:44 Pulse Rate 115 H 03/21/24 09:44 Respiratory Rate 16 03/21/24 09:44 Blood Pressure 136/60 03/21/24 09:44 Pulse Oximetry 98 03/21/24 09:44 Oxygen Delivery Method Room Air 03/21/24 09:44 Course Orders Ordered: ED Orders 03/21/24 09:54 XR hand LT min 3V Stat XR hand RT min 3V Stat 03/21/24 10:09 CBC Auto Diff [Complete Blood Count AUTO DIFF] Stat CMP [Comprehensive Metabolic Panel] Stat CRP [C-Reactive Protein Quant] Stat ESR [Erythrocyte Sedimentation Rate] Stat Vital Signs Vital signs: Vital Signs - 8 hr 03/21/24 09:44 03/21/24 11:53 Temperature 98.1 F Pulse Rate 115 H 95 H Respiratory Rate 16 20 Blood Pressure 136/60 142/78 H Pulse Oximetry 98 98 Oxygen Delivery Method Room Air Room Air MDM - Skin/Abscess/Foreign Bdy Lab Data 03/21/24 10:09 03/21/24 10:09 Labs: Lab Results 03/21/24 Range/Units 10:09 WBC 6.5 (4.5-11.0) X10^3/uL RBC 5.33 H (4.0-5.2) X10^6/uL Hgb 15.0 (12.0-16.0) g/dL Hct 45.0 (36-46) % MCV 84.4 (80-100) fL MCH 28.1 (26-34) PG MCHC 33.3 (30-36) % RDW 14.4 (11.6-14.8) % Plt Count 239 (150-400) X10^3/uL Neut % (Auto) 69.2 (50-75) % Lymph % (Auto) 24.6 L (25-40) % [place] % (Auto) 4.5 (3-14) % Eos % (Auto) 1.3 L (2-4) % Baso % (Auto) 0.4 (0-2) % Neut # (Auto) 4500 (5842-8572) /uL Lymph # (Auto) 1600 (1619-6596) /uL [place] # (Auto) 300 (0-900) /uL Eos # (Auto) 100 (0-450) /uL Baso # (Auto) 0 (0-100) /uL ESR 33 H (0-20) MM/HR Sodium 137 (137-145) mmol/L Potassium 4.1 (3.4-5.1) mmol/L Chloride 101 (98-107) mmol/L Carbon Dioxide 29 (22-32) mmol/L BUN 12 (7-17) mg/dL Creatinine 0.79 (0.52-1.04) mg/dL Estimated GFR > 60 (>60) mL/min BUN/Creatinine Ratio 15.2 (6-22) Glucose 125 H (70-100) mg/dL Calcium 9.2 (8.4-10.2) mg/dL Total Bilirubin 0.5 (0.2-1.3) mg/dL AST 37 H (14-36) IU/L ALT 36 H (<35) IU/L Alkaline Phosphatase 129 H (38-126) U/L C-Reactive Protein 1.9 H (<1.0) mg/dL Total Protein 8.5 H (6.3-8.2) g/dL Albumin 4.4 (3.5-5.0) g/dL Globulin 4.1 (1.7-4.1) g/dL Albumin/Globulin Ratio 1.1 (1.0-2.8) Imaging Data Extremity x-ray #1: Radiologist's Impression: [address] [address] XRay Report Signed Patient: Hellen Casillas MR#: [id number] : 1970 Acct:[id number] Age/Sex: 53 / F Date of Service: 03/21/24 Loc: ED Accession Number: [id number] Procedure: XR hand LT min 3V Ordering Provider: Reynold Guerrier MD PROCEDURE: XR HAND LT MIN 3V INDICATIONS: Pain/swelling fingers TECHNIQUE: 3 views of the hand(s) acquired. COMPARISON: None. FINDINGS: Bones: No acute displaced fracture or dislocation. No high-grade degenerative changes. Soft tissues: No suspicious calcifications. IMPRESSION: No acute radiographic abnormality. If there is high concern for further derangement, consider MRI evaluation. Dictated by: Andrez Beaulieu M.D. on 03/21/2024 at 10:16 Approved by: Andrez Beaulieu M.D. on 03/21/2024 at 10:17 Extremity x-ray #2: Radiologist's Impression: [address] [address] XRay Report Signed Patient: Hellen Casillas MR#: [id number] : 1970 Acct:[id number] Age/Sex: 53 / F Date of Service: 03/21/24 Loc: ED Accession Number: [id number] Procedure: XR hand RT min 3V Ordering Provider: Reynold Guerrier MD PROCEDURE: XR HAND RT MIN 3V INDICATIONS: Pain/swelling fingers TECHNIQUE: 3 views of the hand(s) acquired. COMPARISON: None. FINDINGS: Bones: No high-grade degenerative changes, acute displaced fracture or dislocation Soft tissues: No suspicious calcifications. There is a nonacute appearing small bone fragment adjacent to the 1st interphalangeal joint. IMPRESSION: No acute radiographic abnormality. Age-indeterminate, probably nonacute bone fragment adjacent to the 1st interphalangeal joint. If there is high concern for further derangement, consider MRI evaluation. Dictated by: Andrez Beaulieu M.D. on 03/21/2024 at 10:15 Approved by: Andrez Beaulieu M.D. on 03/21/2024 at 10:[address] [facility] Narrative Medical decision making narrative: Patient complains of painful nodules discoloration to the hands. Left worse than right. Ongoing for the past 2 weeks. No new products or medications. No prior history of liver disease. Does have history of arthritis. No personal family history of lupus or other autoimmune diseases. After history and exam CBC CMP ESR CRP x-ray hands [facility] Medical records reviewed: No recent visit for this complaint Differential considered: Includes but not limited to chilblains, pernio, scabies, herpes, eyal mountain spotted fever liver disease syphilis Lab Test results independently reviewed as above. Pertinent findings: WBC 6.5 hemoglobin 15.0 ESR 33 sodium 137 potassium 4.1 GFR greater than 60 AST 37 ALT 36 C reactive protein 1.9 Imaging studies independently reviewed: X-rays bilateral hands no acute finding Treatments: None indicated Re-evaluations: 11:43 a.m.. Updated patient results. Patient is sitting holding a book with both hands reading. Has full active range of motion of the fingers. Reviewed with her likely pernio is the diagnosis causing her symptoms. Reviewed with her keeping her hands warm at all times. Wearing clothes when she goes outdoors. Using warm packs in her palms to keep the fingers and digits warm. No prescriptions are indicated. She does have family doctor to follow up with. She may need referral to rheumatology services. Discussion: Appropriate for discharge home exam is reassuring. Return precautions reviewed. Clinically likely pernio. It is cold weather out this time of the season. Reviewed with patient does not take much to trigger for pernio with history of rheumatoid arthritis. Return precautions reviewed she desires discharge home. Pain is controlled. Inflammatory markers likely from pernio reaction Diagnosis: P[place]io Discharge Plan Departure Patient Disposition: Home Clinical Impression: [place] Qualifiers: Encounter type: initial encounter Qualified Code(s): T69.1XXA - Chilblains, initial encounter Instructions: DI for Rheumatoid Arthritis Activity Restrictions/Additional Instructions: You likely have a condition called pernio, it is reaction to cold weather exposure. Please do try to keep your hands warm. Wear gloves when outdoors. You may use warm packs to keep your hands warm. No prescriptions are indicated. Return if worse if any questions or concerns. See family doctor in a week for re-evaluation and possibly get referral to rheumatology services or dermatology services. Prescriptions: No Action Ozempic 2 mg/dose (8 mg/3 mL) pen injector SUBCUT Patient Comments: [NO ORIGINAL SIG] montelukast 10 mg tablet PO DAILY sacubitril-valsartan [Entresto] 24-26 mg tablet PO spironolactone 25 mg tablet PO digoxin 250 mcg (0.25 mg) tablet PO DAILY sertraline 100 mg tablet PO Patient Comments: [NO ORIGINAL SIG] metoprolol succinate 25 mg tablet extended release 24 hr PO DAILY gabapentin 300 mg Capsule 300 mg PO TID cyclobenzaprine 10 mg tablet 10 mg PO TID PRN (Reason: muscle spasm) Qty: 14 0RF amitriptyline 50 mg Tablet 100 mg PO DAILY Rx Instructions: Take 100-150 daily hydroxyzine HCl 25 mg Tablet 25 mg PO TID fluticasone propionate 50 mcg/actuation [place],Suspension 1 spray INTRANASAL DAILY Rx Instructions: administer into each nostril lisinopril 2.5 mg Tablet 2.5 mg PO TID Rx Instructions: 1 tab AM and 2 tabs PM potassium chloride 20 mEq Tablet Extended Release 20 meq PO QWEEK Rx Instructions: 1 pill 1x week *Ask patient for instructions torsemide 20 mg Tablet 40 mg PO BID metolazone 2.5 mg Tablet 2.5 mg PO USEASDIRECTD colchicine 0.6 mg Tablet 0.6 mg PO BID Qty: 14 0RF Referrals: Geetha Martinez MD [Primary Care Provider] - Stand Alone Forms: Patient Portal/API/Survey
[2024-03-21 10:21] LABS: Add Manual Diff / Slide Review NO; Basophils Absolute Auto 0 /uL (0-100); Basophils Percent Auto 0.4 % (0-2); Eosinophils Absolute Auto 100 /uL (0-450); Eosinophils Percent Auto 1.3 % (2-4); Lymphocytes Absolute Auto 1600 /uL (1100-4500); Lymphocytes Percent Auto 24.6 % (25-40); Mean Corpuscular HGB Conc 33.3 % (30-36); Mean Corpuscular Hemoglobin 28.1 PG (26-34); Mean Corpuscular Volume 84.4 fL (80-100); Monocytes Absolute Auto 300 /uL (0-900); Monocytes Percent Auto 4.5 % (3-14); Neutrophils Absolute Auto 4500 /uL (1500-7000); Neutrophils Percent Auto 69.2 % (50-75); Platelet Count 239 X10^3/uL (150-400); Red Blood Cell Count 5.33 X10^6/uL (4.0-5.2); Red Cell Distribution Width 14.4 % (11.6-14.8); White Blood Cell Count 6.5 X10^3/uL (4.5-11.0)
[2024-03-21 10:32] LABS: Alanine Aminotransferase 36 IU/L (<35); Albumin 4.4 g/dL (3.5-5.0); Albumin Globulin Ratio 1.1 (1.0-2.8); Alkaline Phosphatase 129 U/L (38-126); Aspartate Aminotransferase 37 IU/L (14-36); BUN Creatinine Ratio 15.2 (6-22); Bilirubin Total 0.5 mg/dL (0.2-1.3); Blood Urea Nitrogen 12 mg/dL (7-17); C-Reactive Protein Quant 1.9 mg/dL (<1.0); Calcium 9.2 mg/dL (8.4-10.2); Carbon Dioxide 29 mmol/L (22-32); Chloride 101 mmol/L (98-107); Estimated Glomerular Filt Rate > 60 mL/min (>60); Globulin 4.1 g/dL (1.7-4.1); Glucose 125 mg/dL (70-100); HEMOLYSIS < 15 (0-50); Potassium 4.1 mmol/L (3.4-5.1); Sodium 137 mmol/L (137-145); Total Protein 8.5 g/dL (6.3-8.2)
[2024-03-21 10:44] LABS: Erythrocyte Sedimentation Rate 33 MM/HR (0-20)
[2024-03-21 11:53] VITALS: BP 142/78; PULSE 95; RESP 20; O2SAT 98
== END 2024-03-21 11:52 | disposition home or self-care (01) ==
PROVIDERS: Emergency Provider Emergency Medicine; PCP Family Medicine
DX: T69.1XXA Chilblains, initial encounter (principal); I10 Essential (primary) hypertension; Z87.39 Personal history of other diseases of the musculoskeletal system and connective tissue; Z95.0 Presence of cardiac pacemaker; Z86.79 Personal history of other diseases of the circulatory system
CPT/HCPCS: 36415; 73130; 80053; 85025; 85651; 86140; 99283; 99284